=== PATIENT | female | born 1955 | race Hispanic/Latino ===

== ENCOUNTER 2017-01-04 13:48 | Emergency (ER) | payer MEDICARE ==
[2017-01-04 13:48] VITALS: BMI 23.8
[2017-01-04 15:07] VITALS: BP 131/89; PULSE 94; RESP 18; TEMP 97.5; O2SAT 96
--- NOTE | 2017-01-04 16:25 | ED PDOC ---
Arrival/HPI - General Chief Complaint: Lower Extremity Problem/Injury Time Seen by Provider: 01/04/17 15:01 Historian: Patient - History of Present Illness Narrative History of Present Illness (Text): 01/04/17 16:21 61yo female present with complaint of right lower leg/foot pain s/p trauma yesterday. States a sheet rock fell ontop of her leg, while peeling the sheet rock. Pain with weight bearing. Did not take any analgesic. Denies weakness, any other complaint. Past Medical History - Provider Review Nursing Documentation Reviewed: Yes - Infectious Disease Hx of Infectious Diseases: None - Tetanus Immunization Tetanus Immunization: Unknown - Past Medical History Past Medical History: No Previous - Cardiac Hx Cardiac Disorders: No Hx Pacemaker: No - Pulmonary Hx Respiratory Disorders: No - Neurological Hx Neurological Disorder: Yes Hx Vertigo: Yes Other/Comment: Hydrocephalus - HEENT Hx HEENT Disorder: No - Renal Hx Renal Disorder: No - Endocrine/Metabolic Hx Endocrine Disorders: No - Hematological/Oncological Hx Blood Transfusions: No Hx Blood Transfusion Reaction: No - Integumentary Hx Dermatological Disorder: No - Musculoskeletal/Rheumatological Hx Musculoskeletal Disorders: Yes (HERNIATED DISC) - Gastrointestinal Hx Gastrointestinal Disorders: No - Genitourinary/Gynecological Hx Genitourinary Disorders: No - Psychiatric Hx Anxiety: Yes Hx Emotional Abuse: No Hx Physical Abuse: No Hx Substance Use: No - Past Surgical History Past Surgical History: No Previous - Surgical History Hx Hysterectomy: Yes Other/Comment: JAw surgery - Anesthesia Hx Anesthesia: Yes Hx Anesthesia Reactions: Yes (NAUSEA) Hx Malignant Hyperthermia: No - Suicidal Assessment Feels Threatened In Home Enviroment: No Family/Social History - Physician Review Nursing Documentation Reviewed: Yes Family/Social History: Unknown Family HX Smoking Status: Never Smoked Hx Alcohol Use: No Hx Substance Use: No Hx Substance Use Treatment: No Allergies/Home Meds Allergies/Adverse Reactions: Allergies acetaminophen [From Percocet] Adverse Reaction (Intermediate, Verified 01/04/17 15:02) IRRITATES STOMACH/ VOMITING codeine Adverse Reaction (Intermediate, Verified 01/04/17 15:02) IRRITATES STOMACH/ VOMITING oxycodone HCl [From Percocet] Adverse Reaction (Intermediate, Verified 01/04/17 15:02) IRRITATES STOMACH/ VOMITING Home Medications: Home Meds Medication Instructions Recorded Confirmed Alprazolam [Xanax] 0.25 mg PO PRN PRN 08/15/12 05/15/17 Acetaminophen/Butalbital/Caf 1 tab PO Q6 PRN 09/08/16 01/04/17 [Fioricet] Review of Systems - Physician Review All systems were reviewed & negative as marked: Yes - Review of Systems Constitutional: Normal Eyes: Normal ENT: Normal Respiratory: Normal Cardiovascular: Normal Gastrointestinal: Normal Genitourinary Female: Normal Musculoskeletal: Arthralgias (right leg pain) Skin: Normal Neurological: Normal Endocrine: Normal Hemo/Lymphatic: Normal Psychiatric: Normal Physical Exam Vital Signs Reviewed: Yes Vital Signs Temp Pulse Resp BP Pulse Ox 01/04/17 15:00 97.5 F L 94 H 18 131/89 96 Temperature: Afebrile Blood Pressure: Normal Pulse: Regular Respiratory Rate: Normal Appearance: Positive for: Well-Appearing, Non-Toxic, Comfortable Pain Distress: None Mental Status: Positive for: Alert and Oriented X 3 - Systems Exam Head: Present: Atraumatic, Normocephalic Pupils: Present: PERRL Extroacular Muscles: Present: EOMI Conjunctiva: Present: Normal Mouth: Present: Moist Mucous Membranes Neck: Present: Normal Range of Motion Respiratory/Chest: Present: Clear to Auscultation, Good Air Exchange. No: Respiratory Distress, Accessory Muscle Use Cardiovascular: Present: Regular Rate and Rhythm, Normal S1, S2. No: Murmurs Abdomen: Present: Normal Bowel Sounds. No: Tenderness, Distention, Peritoneal Signs Back: Present: Normal Inspection Upper Extremity: Present: Normal Inspection. No: Cyanosis, Edema Lower Extremity: Present: CALF TENDERNESS, NORMAL PULSES, Normal ROM, Swelling ( Mild swelling of right lower leg), Neurovascularly Intact, Other (Superficial healing abrasion noted on mcpherson area). No: Edema, Erythema, Deformity, Temperature Abnormalties Neurological: Present: GCS=15, CN II-XII Intact, Speech Normal Skin: Present: Warm, Dry, Normal Color. No: Rashes Psychiatric: Present: Alert, Oriented x 3, Normal Insight, Normal Concentration Medical Decision Making ED Course and Treatment: 01/04/17 20:30 PEr US tech - Doppler was negative for DVT Right tib/fib/foot xray - No acute fracture PT was ambulatory. Result was DW the pt. He was DC home with analgesic. Referred to her PMD. Advised to FLAKITA leg. TRT ED for any new or worsening symptoms. - RAD Interpretation Radiology Orders: 01/04/17 15:01 FOOT RIGHT 3 VIEWS ROUTINE [RAD] Stat TIBIA FIBULA RIGHT [RAD] Stat 01/04/17 15:02 DUPLEX LOWER EXTRM VEIN RIGHT [US] Stat - Medication Orders Current Medication Orders: Discontinued Medications Tramadol HCl (Ultram) 50 mg PO STAT STA Stop: 01/04/17 15:03 Last Admin: 01/04/17 15:14 Dose: 50 mg Disposition/Present on Arrival - Present on Arrival Any Indicators Present on Arrival: No History of DVT/PE: No History of Uncontrolled Diabetes: No Urinary Catheter: No History of Decub. Ulcer: No History Surgical Site Infection Following: None - Disposition Have Diagnosis and Disposition been Completed?: Yes Diagnosis: Leg injury Disposition: HOME/ ROUTINE Disposition Time: 16:30 Patient Plan: Discharge Condition: STABLE Discharge Instructions (ExitCare): Leg Pain (ED) Additional Instructions: Follow up with your Doctor/orthopedist Return to ED for any new or worsening symptoms Prescriptions: Naproxen [Naprosyn] 500 mg PO BID #20 tab Referrals: Rohit Quiroga MD [Primary Care Provider] - Follow up with primary Jewell Walker MD [Staff Provider] - Follow up with primary
--- NOTE | 2017-01-04 20:05 | US ---
PROCEDURE: Right lower extremity venous US HISTORY: Leg pain and swelling. Evaluate for DVT. PHYSICIAN(S): Andrew Lee M.D. TECHNIQUE: Duplex sonography and color-flow Doppler with graded compression were used to evaluate the deep venous system of the right lower extremity. FINDINGS: The visualized deep venous system of the right lower extremity is sonographically normal and compressible. Normal waveforms and augmentation are seen. There is no sonographic evidence for deep venous thrombosis in the visualized segments of the right lower extremity. IMPRESSION: 1. No sonographic evidence for deep venous thrombosis in the visualized segments of the right lower extremity.
--- NOTE | 2017-01-05 08:50 | RAD ---
PROCEDURE: Radiographs of the right tibia and fibula. HISTORY: leg pain COMPARISON: None available. TECHNIQUE: Frontal and lateral views obtained. FINDINGS: BONES: No fracture or destructive lesion. JOINT SPACES: Unremarkable. OTHER FINDINGS: None. IMPRESSION: Unremarkable radiographs of the right tibia and fibula.
--- NOTE | 2017-01-05 08:53 | RAD ---
PROCEDURE: Right Foot Radiographs. HISTORY: foot pain s/p trauma COMPARISON: None. FINDINGS: BONES: No acute fracture. 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 JOINTS: Normal. SOFT TISSUES: Normal. OTHER FINDINGS: None. IMPRESSION: No acute fracture. Type 3 accessory navicular noted.
== END 2017-01-04 16:41 | disposition home or self-care (01) ==
LOC: ED 13:48
DX: S89.91XA Unspecified injury of right lower leg, initial encounter (principal); W20.8XXA Other cause of strike by thrown, projected or falling object, initial encounter

== ENCOUNTER 2017-01-05 11:38 | Emergency (ER) | payer MEDICARE ==
[2017-01-05 11:38] VITALS: BMI 23.8
[2017-01-05 12:03] VITALS: BP 109/71; PULSE 83; RESP 18; TEMP 98; O2SAT 97
--- NOTE | 2017-01-05 12:09 | ED PDOC ---
Arrival/HPI - General Historian: Patient - General Chief Complaint: Lower Extremity Problem/Injury Time Seen by Provider: 01/05/17 12:06 - History of Present Illness Narrative History of Present Illness (Text): 01/05/17 17:24 7o yo female with right lower leg pain in ED for pain medication. She was seen here yesterday for the leg pain and xray/US result was negative. She was DC home with Naprosyn. States the medication gave her "stomach upset". Came back to ED for a different prescription. Denies any new symptoms. (Luke Purcell A) Past Medical History - Provider Review Nursing Documentation Reviewed: Yes - Infectious Disease Hx of Infectious Diseases: None - Tetanus Immunization Tetanus Immunization: Unknown - Past Medical History Past Medical History: No Previous - Cardiac Hx Cardiac Disorders: No Hx Pacemaker: No - Pulmonary Hx Respiratory Disorders: No - Neurological Hx Neurological Disorder: Yes Hx Vertigo: Yes Other/Comment: Hydrocephalus - HEENT Hx HEENT Disorder: No - Renal Hx Renal Disorder: No - Endocrine/Metabolic Hx Endocrine Disorders: No - Hematological/Oncological Hx Blood Transfusions: No Hx Blood Transfusion Reaction: No - Integumentary Hx Dermatological Disorder: No - Musculoskeletal/Rheumatological Hx Musculoskeletal Disorders: Yes (HERNIATED DISC) - Gastrointestinal Hx Gastrointestinal Disorders: No - Genitourinary/Gynecological Hx Genitourinary Disorders: No - Psychiatric Hx Anxiety: Yes Hx Emotional Abuse: No Hx Physical Abuse: No Hx Substance Use: No - Past Surgical History Past Surgical History: No Previous - Surgical History Hx Hysterectomy: Yes Other/Comment: JAw surgery - Anesthesia Hx Anesthesia: Yes Hx Anesthesia Reactions: Yes (NAUSEA) Hx Malignant Hyperthermia: No - Suicidal Assessment Feels Threatened In Home Enviroment: No Family/Social History - Physician Review Nursing Documentation Reviewed: Yes Family/Social History: Unknown Family HX Smoking Status: Never Smoked Hx Alcohol Use: No Hx Substance Use: No Hx Substance Use Treatment: No Allergies/Home Meds Allergies/Adverse Reactions: Allergies acetaminophen [From Percocet] Adverse Reaction (Intermediate, Verified 01/05/17 12:03) IRRITATES STOMACH/ VOMITING codeine Adverse Reaction (Intermediate, Verified 01/05/17 12:03) IRRITATES STOMACH/ VOMITING oxycodone HCl [From Percocet] Adverse Reaction (Intermediate, Verified 01/05/17 12:03) IRRITATES STOMACH/ VOMITING Home Medications: Home Meds Medication Instructions Recorded Confirmed Alprazolam [Xanax] 0.25 mg PO PRN PRN 04/06/12 01/05/17 Acetaminophen/Butalbital/Caf 1 tab PO Q6 PRN 09/08/16 01/05/17 [Fioricet] Review of Systems - Physician Review All systems were reviewed & negative as marked: Yes - Review of Systems Constitutional: Normal Eyes: Normal ENT: Normal Respiratory: Normal Cardiovascular: Normal Gastrointestinal: Normal Genitourinary Female: Normal Musculoskeletal: Arthralgias (leg pain) Skin: Normal Neurological: Normal Endocrine: Normal Hemo/Lymphatic: Normal Psychiatric: Normal Physical Exam Vital Signs Reviewed: Yes Temperature: Afebrile Blood Pressure: Normal Pulse: Regular Respiratory Rate: Normal Appearance: Positive for: Well-Appearing, Non-Toxic, Comfortable Pain Distress: None Mental Status: Positive for: Alert and Oriented X 3 - Systems Exam Head: Present: Atraumatic, Normocephalic Pupils: Present: PERRL Extroacular Muscles: Present: EOMI Conjunctiva: Present: Normal Mouth: Present: Moist Mucous Membranes Neck: Present: Normal Range of Motion Respiratory/Chest: Present: Clear to Auscultation, Good Air Exchange. No: Respiratory Distress, Accessory Muscle Use Cardiovascular: Present: Regular Rate and Rhythm, Normal S1, S2. No: Murmurs Abdomen: Present: Normal Bowel Sounds. No: Tenderness, Distention, Peritoneal Signs Back: Present: Normal Inspection Upper Extremity: Present: Normal Inspection. No: Cyanosis, Edema Lower Extremity: Present: Normal Inspection. No: Edema Neurological: Present: GCS=15, CN II-XII Intact, Speech Normal Skin: Present: Warm, Dry, Normal Color. No: Rashes Psychiatric: Present: Alert, Oriented x 3, Normal Insight, Normal Concentration Vital Signs Temp Pulse Resp BP Pulse Ox 01/05/17 12:00 98 F 83 18 109/71 97 Medical Decision Making ED Course and Treatment: I was available for consultation during PA evaluation. The chart was reviewed by me, and I agree with disposition. The documented history was done by the physician debarker operator. The documented physical exam was done by the physician debarker operator. The documented procedures were done by the physician debarker operator. (Jethro Palm) 01/05/17 17:27 Pt states she tolerates Ibuprofen. Given rx for Ibuprofen. (Luke Purcell A) Disposition/Present on Arrival - Present on Arrival Any Indicators Present on Arrival: No History of DVT/PE: No History of Uncontrolled Diabetes: No Urinary Catheter: No History of Decub. Ulcer: No History Surgical Site Infection Following: None - Disposition Have Diagnosis and Disposition been Completed?: Yes Disposition Time: 12:20 Patient Plan: Discharge - Disposition Diagnosis: Leg pain Disposition: HOME/ ROUTINE Condition: STABLE Discharge Instructions (ExitCare): Leg Pain (ED) Additional Instructions: Follow up with your doctor Return to ED for any new or worsening symptoms Prescriptions: Ibuprofen [Motrin Tab] 600 mg PO Q6 #20 tab Referrals: [facility] [place] - Follow up with primary
== END 2017-01-05 12:34 | disposition home or self-care (01) ==
LOC: ED 11:38
DX: M79.661 Pain in right lower leg (principal)

== ENCOUNTER 2017-01-08 12:22 | Emergency (ER) | payer MEDICARE ==
[2017-01-08 12:22] VITALS: BMI 23.8
[2017-01-08 12:45] VITALS: BP 143/81; PULSE 94; RESP 16; TEMP 98.1; O2SAT 95
--- NOTE | 2017-01-08 12:54 | ED PDOC ---
Arrival/HPI - General Chief Complaint: Dizziness/Lightheaded Time Seen by Provider: 01/08/17 12:30 Historian: Patient - History of Present Illness Narrative History of Present Illness (Text): 01/08/17 12:50 Patient is a 61 year old female whose past medical history includes vertigo, presents to the emergency department with dizziness since this morning. Patient states she took 1 Meclizine (unknown dose) at 09:00 this morning. She states she then went shopping and symptoms became worse when she got to the store. Denies headache, chest pain, ear pain, shortness of breath, or palpations. Past Medical History - Provider Review Nursing Documentation Reviewed: Yes - Infectious Disease Hx of Infectious Diseases: None - Tetanus Immunization Tetanus Immunization: Unknown - Past Medical History Past Medical History: No Previous - Cardiac Hx Cardiac Disorders: No Hx Pacemaker: No - Pulmonary Hx Respiratory Disorders: No - Neurological Hx Neurological Disorder: Yes Hx Vertigo: Yes Other/Comment: Hydrocephalus - HEENT Hx HEENT Disorder: No - Renal Hx Renal Disorder: No - Endocrine/Metabolic Hx Endocrine Disorders: No - Hematological/Oncological Hx Blood Transfusions: No Hx Blood Transfusion Reaction: No - Integumentary Hx Dermatological Disorder: No - Musculoskeletal/Rheumatological Hx Musculoskeletal Disorders: Yes (HERNIATED DISC) - Gastrointestinal Hx Gastrointestinal Disorders: No - Genitourinary/Gynecological Hx Genitourinary Disorders: No - Psychiatric Hx Anxiety: Yes Hx Emotional Abuse: No Hx Physical Abuse: No Hx Substance Use: No - Past Surgical History Past Surgical History: No Previous - Surgical History Hx Hysterectomy: Yes Other/Comment: JAw surgery - Anesthesia Hx Anesthesia: Yes Hx Anesthesia Reactions: Yes (NAUSEA) Hx Malignant Hyperthermia: No - Suicidal Assessment Feels Threatened In Home Enviroment: No Family/Social History - Physician Review Nursing Documentation Reviewed: Yes Family/Social History: Unknown Family HX Smoking Status: Never Smoked Hx Alcohol Use: No Hx Substance Use: No Hx Substance Use Treatment: No Allergies/Home Meds Allergies/Adverse Reactions: Allergies acetaminophen [From Percocet] Adverse Reaction (Intermediate, Verified 01/12/17 16:14) IRRITATES STOMACH/ VOMITING codeine Adverse Reaction (Intermediate, Verified 01/12/17 16:14) IRRITATES STOMACH/ VOMITING oxycodone HCl [From Percocet] Adverse Reaction (Intermediate, Verified 01/12/17 16:14) IRRITATES STOMACH/ VOMITING Home Medications: Home Meds Medication Instructions Recorded Confirmed Alprazolam [Xanax] 0.25 mg PO PRN PRN 04/06/12 01/08/17 Acetaminophen/Butalbital/Caf 1 tab PO BID 01/08/17 01/12/17 [Fioricet] Review of Systems - Review of Systems Constitutional: absent: Fatigue, Fevers Eyes: absent: Vision Changes ENT: absent: Hearing Changes Respiratory: absent: SOB Cardiovascular: Edema. absent: Chest Pain, Palpitations, RODRIGUES Gastrointestinal: absent: Abdominal Pain, Nausea, Vomiting Genitourinary Female: absent: Dysuria, Frequency Musculoskeletal: absent: Back Pain Skin: absent: Rash Neurological: Dizziness. absent: Headache Endocrine: absent: Diaphoresis Psychiatric: absent: Depression Physical Exam - Physical Exam Narrative Physical Exam (Text): Head: Atraumatic. Normocephalic. Eyes: PERRL. EOMI. Conjunctivae are not pale. ENT: Mucous membranes are moist and intact. Tympanic membranes clear bilaterally. Oropharynx is clear and symmetric. Neck: Supple. Full ROM. No JVD. No lymphadenopathy. Cardiovascular: Regular rate. Regular rhythm. Systolic murmur. No rubs, or gallops. Distal pulses are 2+ and symmetric. Pulmonary/Chest: No evidence of respiratory distress. Clear to auscultation bilaterally. No wheezing, rales or rhonchi. Abdominal: Soft and non-distended. There is no tenderness. No rebound, guarding, or rigidity. No organomegaly. Good bowel sounds. Back: No CVA tenderness. Extremities: Healing abrasion on right mcpherson with no pus, blood, or drainage. Mild edema to right leg when compared to left. No cyanosis. No clubbing. Full range of motion in all extremities. No calf tenderness. Skin: Skin is warm and dry. No petechiae. No purpura. Neurological: Alert, awake, and oriented to person, place, time, and situation. Normal speech. No facial droop. No pronator drift. Sensory and motor intact. Negative dos santos pike maneuver. No pathologic nystagmus. Psychiatric: Good eye contact. Appears mildly anxious. Vital Signs Reviewed: Yes Vital Signs Temp Pulse Resp BP Pulse Ox 01/08/17 12:40 98.1 F 94 H 16 143/81 95 Temperature: Afebrile Blood Pressure: Normal Pulse: Regular Respiratory Rate: Normal Appearance: Positive for: Well-Appearing, Non-Toxic, Comfortable Pain Distress: Mild Mental Status: Positive for: Alert and Oriented X 3 Finger Stick Blood Glucose: 83 Medical Decision Making ED Course and Treatment: Differential Diagnosis included but are not limited to: Vertigo Plan: Patient with prior history of vertigo. Due to positional nature of symptoms, suggestive of vertigo. Will give Meclizine. Prior Visits: Notes and results from previous visits were reviewed. Patient last seen in the ED on 01/05/17 for right leg pain and discharged home. PROCEDURE: MRI BRAIN WITH AND WITHOUT CONTRAST (08/18/16) It Recruiter : Jeffy Mar MD Report Date : 08/18/2016 13:22:25 IMPRESSION: Unremarkable pre and post contrast enhanced MRI of the brain. Progress Notes: 01/08/17 14:15 On reassessment, symptoms completely resolved after Meclizine. Patient is not orthostatic. Denies chest pain or shortness of breath. She reports current episode is similar to prior episodes. As she is asymptomatic and neurologically intact, she will be discharged with instructions to continue Meclizine as needed. 01/08/17 14:37 Ddimer elevation discussed with patient in laymen's terms. She denies any chest pain or shortness of breath. She does have right sided leg swelling but states this is improved since previous visit. Prior ultrasound was reviewed which was negative for DVT. I have recommended CT chest with iv contrast for evaluation of PE. Patient states that she has no chest discomfort or shortness of breath currently. She does not wish to have Chest ct after indications and risks reviewed with her. She again states she has no chest pain or shortness of breath or palpitations. Non smoker. No prolonged immobization. No prior history of DVT or PE. Given lack of symptoms, patient understands risks but is asymptomatic and will be discharged home, states understand risk. - Lab Interpretations Lab Results: 01/08/17 13:30 01/08/17 13:30 Lab Results 01/08/17 13:30: Sodium 143, Potassium 3.8, Chloride 102, Carbon Dioxide 27, Anion Gap 18, BUN 10, Creatinine 0.7, Est GFR ( Amer) > 60, Est GFR (Non- Af Amer) > 60, Random Glucose 82, Calcium 9.7, Total Bilirubin 1.3, AST 20, ALT 21, Alkaline Phosphatase 121, Lactate Dehydrogenase 417, Total Creatine Kinase 49, Troponin I < 0.01, Total Protein 8.3, Albumin 4.7, Globulin 3.6, Albumin/ Globulin Ratio 1.3 01/08/17 13:30: PT 10.5, INR 0.97, APTT 28.3, D-Dimer, Quantitative 0.78 H 01/08/17 13:30: WBC 5.6, RBC 4.33, Hgb 12.9, Hct 37.5, MCV 86.6, MCH 29.8, MCHC 34.4, RDW 12.4, Plt Count 215, MPV 9.5, Gran % 72.1 H, Lymph % (Auto) 16.6 L, Payette % (Auto) 7.3 H, Eos % (Auto) 3.6, Baso % (Auto) 0.4, Gran # 4.05, Lymph # 0.9 L, Payette # 0.4, Eos # 0.2, Baso # 0.02 01/08/17 12:43: POC Glucose (mg/dL) 83 - RAD Interpretation Radiology Orders: 01/08/17 12:50 CHEST PORTABLE [RAD] Stat - Medication Orders Current Medication Orders: Discontinued Medications Meclizine HCl (Antivert) 25 mg PO ONCE ONE Stop: 01/08/17 13:03 Last Admin: 01/08/17 13:23 Dose: 25 mg - Scribe Statement The provider has reviewed the documentation as recorded by the Dominique Jacques Provider Scribe Attestation: All medical record entries made by the Dominique were at my direction and personally dictated by me. I have reviewed the chart and agree that the record accurately reflects my personal performance of the history, physical exam, medical decision making, and the department course for this patient. I have also personally directed, reviewed, and agree with the discharge instructions and disposition. Disposition/Present on Arrival - Present on Arrival Any Indicators Present on Arrival: No History of DVT/PE: No History of Uncontrolled Diabetes: No Urinary Catheter: No History of Decub. Ulcer: No History Surgical Site Infection Following: None - Disposition Have Diagnosis and Disposition been Completed?: Yes Diagnosis: Vertigo Disposition: HOME/ ROUTINE Disposition Time: 14:00 Patient Plan: Discharge Condition: GOOD Discharge Instructions (ExitCare): Vertigo (ED) Additional Instructions: For any headaches, any chest pain, any shortness of breath, any abdominal pain, any palpitations, any persistent or worsening of any symptoms, get rechecked. Follow-up with your physician in 1-2 day. Follow-up with your neurologist as directed. Take meclizine as directed. Referrals: Rohit Quiroga MD [Primary Care Provider] - Follow up with primary
--- NOTE | 2017-01-08 13:12 | RAD ---
HISTORY: dizzy COMPARISON: No prior. FINDINGS: LUNGS: No active pulmonary disease. PLEURA: No significant pleural effusion identified, no pneumothorax apparent. CARDIOVASCULAR: Normal. OSSEOUS STRUCTURES: No significant abnormalities. VISUALIZED UPPER ABDOMEN: Normal. OTHER FINDINGS: None. IMPRESSION: No active disease.
[2017-01-08 13:43] LABS: ADD MANUAL DIFF? NO
[2017-01-08 13:57] LABS: ALB/GLOB RATIO 1.3 (1.1-1.8); ALKALINE PHOSPHATASE 121 U/L (38-133); ALT/SGPT 21 U/L (7-56); AST/SGOT 20 U/L (15-39); BASO # 0.02 K/mm3 (0.0-2.0); BASO % 0.4 % (0.0-3.0); BILIRUBIN,TOTAL 1.3 mg/dL (0.2-1.3); BLOOD UREA NITROGEN 10 mg/dL (7-21); CALCIUM 9.7 mg/dL (8.4-10.5); CARBON DIOXIDE 27 mmol/L (21-33); CHLORIDE 102 mmol/L (98-107); EOS # 0.2 (0.0-0.7); EOS % 3.6 % (1.5-5.0); GFR AFRICAN-AMERICAN > 60; GLUCOSE,RANDOM 82 mg/dL (70-110); GRAN # 4.05 (1.4-6.5); GRAN % 72.1 % (50.0-68.0); HEMATOCRIT 37.5 % (36.0-48.0); LYMPH # 0.9 (1.2-3.4); LYMPH % 16.6 % (22.0-35.0); MEAN CELL VOLUME 86.6 fL (80.0-105.0); MEAN CORPUSCULAR HEMOGLOBIN 29.8 pg (25.0-35.0); MEAN CORPUSCULAR HGB CONC 34.4 g/dl (31.0-37.0); MEAN PLATELET VOLUME 9.5 fl (7.0-11.0); MONO # 0.4 (0.1-0.6); MONO % 7.3 % (1.0-6.0); PLATELET COUNT 215 10^3/uL (120.0-450.0); POTASSIUM 3.8 mmol/L (3.6-5.0); RED CELL DISTRIBUTION WIDTH 12.4 % (11.5-14.5); SODIUM 143 mmol/L (132-148); TOTAL PROTEIN 8.3 g/dL (5.8-8.3); WHITE BLOOD COUNT 5.6 10^3/ul (4.5-11.0)
[2017-01-08 14:09] LABS: TROPONIN I < 0.01 ng/mL
[2017-01-08 14:20] LABS: INR 0.97 (0.93-1.08); PARTIAL THROMBOPLASTIN TIME 28.3 Seconds (23.7-30.8)
[2017-01-08 14:23] LABS: D DIMER 0.78 mg/L FEU (0-0.50)
--- NOTE | 2017-01-08 21:58 | CARD ---
APPROVED REPORT EKG Measurement Heart [id number] <Conclusion> Normal sinus rhythm Possible Left atrial enlargement Borderline ECG
== END 2017-01-08 14:40 | disposition home or self-care (01) ==
LOC: ED 12:22
DX: R42 Dizziness and giddiness (principal)

== ENCOUNTER 2017-01-12 16:11 | Emergency (ER) | payer MEDICARE ==
[2017-01-12 16:12] VITALS: BMI 23.8
[2017-01-12 16:24] VITALS: TEMP 97.7
--- NOTE | 2017-01-12 17:21 | ED PDOC ---
Arrival/HPI - General Chief Complaint: Dizziness/Lightheaded Time Seen by Provider: 01/12/17 16:26 Historian: Patient - History of Present Illness Narrative History of Present Illness (Text): 01/12/17 17:10 Carol Samuel is a 61 year old female, whose past medical history includes vertigo and migraines, who presents to the emergency department complaining of dizziness for 4 days. Patient describes her dizziness to be a spinning sensation with no focal weakness. Patient presented to PMD today, who ordered a CT scan in an outpatient facility. However due to an insurance required pre- authorization, patient was not able to get scan prompting her to come to emergency department instead. At present, Patient states that there is no change in dizziness and endorses that she continues to take Meclizine once a day , daily. Patient denies any chest pain, vomiting, shortness of breath, generalized body pain, or any other complaint at this time. PMD: Dr. Quiroga 0 Time/Duration: < week Symptom Onset: Gradual Symptom Course: Unchanged Severity Level: Mild Activities at Onset: Light Context: Home Past Medical History - Provider Review Nursing Documentation Reviewed: Yes - Infectious Disease Hx of Infectious Diseases: None - Tetanus Immunization Tetanus Immunization: Unknown - Reproductive Menopause: Yes - Past Medical History Past Medical History: No Previous - Cardiac Hx Cardiac Disorders: No Hx Pacemaker: No - Pulmonary Hx Respiratory Disorders: No - Neurological Hx Neurological Disorder: Yes Hx Dizziness: Yes Hx Vertigo: Yes Other/Comment: Hydrocephalus - HEENT Hx HEENT Disorder: No - Renal Hx Renal Disorder: No - Endocrine/Metabolic Hx Endocrine Disorders: No - Hematological/Oncological Hx Blood Transfusions: No Hx Blood Transfusion Reaction: No - Integumentary Hx Dermatological Disorder: No - Musculoskeletal/Rheumatological Hx Musculoskeletal Disorders: Yes (HERNIATED DISC) - Gastrointestinal Hx Gastrointestinal Disorders: No - Genitourinary/Gynecological Hx Genitourinary Disorders: No - Psychiatric Hx Anxiety: Yes Hx Emotional Abuse: No Hx Physical Abuse: No Hx Substance Use: No - Past Surgical History Past Surgical History: No Previous - Surgical History Hx Hysterectomy: Yes (2003) Other/Comment: Jaw surgery - Anesthesia Hx Anesthesia: Yes Hx Anesthesia Reactions: Yes (NAUSEA) Hx Malignant Hyperthermia: No - Suicidal Assessment Feels Threatened In Home Enviroment: No Family/Social History - Physician Review Nursing Documentation Reviewed: Yes Family/Social History: No Known Family HX Smoking Status: Never Smoked Hx Alcohol Use: No Hx Substance Use: No Hx Substance Use Treatment: No Allergies/Home Meds Allergies/Adverse Reactions: Allergies acetaminophen [From Percocet] Adverse Reaction (Intermediate, Verified 01/12/17 16:14) IRRITATES STOMACH/ VOMITING codeine Adverse Reaction (Intermediate, Verified 01/12/17 16:14) IRRITATES STOMACH/ VOMITING oxycodone HCl [From Percocet] Adverse Reaction (Intermediate, Verified 01/12/17 16:14) IRRITATES STOMACH/ VOMITING Home Medications: Home Meds Medication Instructions Recorded Confirmed Alprazolam [Xanax] 0.25 mg PO PRN PRN 04/06/12 01/08/17 Acetaminophen/Butalbital/Caf 1 tab PO BID 01/08/17 01/12/17 [Fioricet] Review of Systems - Review of Systems Constitutional: absent: Fevers, Night Sweats Eyes: absent: Vision Changes ENT: absent: Hearing Changes Respiratory: absent: SOB, Cough Cardiovascular: absent: Chest Pain Gastrointestinal: absent: Abdominal Pain, Nausea, Vomiting, Appetite Changes Genitourinary Female: absent: Urine Output Changes Musculoskeletal: absent: Arthralgias, Back Pain, Neck Pain Skin: absent: Rash, Pruritis Neurological: Dizziness Endocrine: absent: Polyuria Hemo/Lymphatic: absent: Easy Bleeding Psychiatric: absent: Depression Physical Exam Vital Signs Reviewed: Yes Vital Signs Temp Pulse Resp BP Pulse Ox 01/12/17 18:42 72 16 122/75 100 01/12/17 16:22 97.7 F 85 19 108/72 97 Temperature: Afebrile Blood Pressure: Normal Pulse: Regular Respiratory Rate: Normal Appearance: Positive for: Well-Appearing, Non-Toxic, Comfortable Pain Distress: None Mental Status: Positive for: Alert and Oriented X 3 - Systems Exam Head: Present: Atraumatic, Normocephalic Pupils: Present: PERRL Conjunctiva: Present: Normal Mouth: Present: Moist Mucous Membranes Pharnyx: Present: Normal. No: ERYTHEMA, EXUDATE Neck: Present: Normal Range of Motion Respiratory/Chest: Present: Clear to Auscultation, Good Air Exchange. No: Respiratory Distress, Accessory Muscle Use Cardiovascular: Present: Regular Rate and Rhythm, Normal S1, S2. No: Murmurs Abdomen: Present: Normal Bowel Sounds. No: Tenderness, Distention, Peritoneal Signs Back: Present: Normal Inspection Upper Extremity: Present: Normal Inspection. No: Cyanosis, Edema Lower Extremity: Present: Normal Inspection, Other (wound on right mcpherson that appears to be a non healing abrasion (started on antibiotics by PMD today); no erythema, no pus). No: Edema, Erythema Neurological: Present: GCS=15, CN II-XII Intact, Speech Normal, Motor Func Grossly Intact, Normal Cerebellar Funct Skin: Present: Warm, Dry, Normal Color. No: Rashes Psychiatric: Present: Alert, Oriented x 3, Normal Insight, Normal Concentration Medical Decision Making ED Course and Treatment: 01/12/17 17:10 Impression: 61 year old female complaining of dizziness for 4 days. Differential Diagnosis include but are not limited to: Vertigo Plan: -- Head CT w/o contrast -- Reassess and disposition Prior Visits: Notes and results from previous visits were reviewed. Patient last seen in ED on 01/08/2017 for dizziness since that morning. Patient was discharged home. Progress Notes: 01/12/17 19:[address]: Creator : Ansley Shabazz MD FINDINGS: HEMORRHAGE:No intracranial hemorrhage. BRAIN: No mass effect or edema. The reid-white matter differentiation appears intact. Please note that MRI with diffusion imaging is more sensitive in the detection of acute ischemic event. VENTRICLES:Unremarkable. No hydrocephalus. CALVARIUM:Unremarkable. PARANASAL SINUSES:Unremarkable as visualized. No significant inflammatory changes. MASTOID AIR CELLS:Unremarkable as visualized. No inflammatory changes. OTHER FINDINGS:None. IMPRESSION: No acute intracranial pathology identified. 01/12/17 19:45 Patient with longer-standing vertigo, worse past 4 days with unremarkable neuro exam; saw pmd this am, ordered CT brain and unable to obtain today due to insurance. Blood work done recently is unremarkable. Brain CT today is unremarkable. Spoke with Dr. Quiroga's nurse, Tiffanie, who said to have the patient call her tomorrow to see if she can get her a sooner appointment with Dr. Carpenter. [place] for d/c and will have her use the meclizine BID instead of QD. - RAD Interpretation Radiology Orders: 01/12/17 17:16 Brain [HEAD W/O CONTRAST] [CT] Stat - Scribe Statement The provider has reviewed the documentation as recorded by the Dominique Briggs Provider Scribe Attestation: All medical record entries made by the Scribe were at my direction and personally dictated by me. I have reviewed the chart and agree that the record accurately reflects my personal performance of the history, physical exam, medical decision making, and the department course for this patient. I have also personally directed, reviewed, and agree with the discharge instructions and disposition. Disposition/Present on Arrival - Present on Arrival Any Indicators Present on Arrival: No History of DVT/PE: No History of Uncontrolled Diabetes: No Urinary Catheter: No History of Decub. Ulcer: No History Surgical Site Infection Following: None - Disposition Have Diagnosis and Disposition been Completed?: Yes Diagnosis: Dizziness Disposition: HOME/ ROUTINE Disposition Time: 19:50 Patient Plan: Discharge Condition: GOOD Discharge Instructions (ExitCare): Vertigo (ED) Additional Instructions: Drink plenty of fluids. Take the meclizine twice a day as needed for dizziness. Call Tiffanie from Dr. Quiroga's office tomorrow to arrange for sooner appointment with Dr. Carpenter. Return to the emergency department if any new concerning symptoms. Referrals: Rohit Quiroga MD [Primary Care Provider] - Follow up with primary
[2017-01-12 18:43] VITALS: RESP 16; O2SAT 100
--- NOTE | 2017-01-12 19:03 | CT ---
PROCEDURE: CT HEAD WITHOUT CONTRAST. HISTORY: dizziness COMPARISON: Noncontrast head CT performed 09/28/14 TECHNIQUE: Axial computed tomography images were obtained through the head/brain without intravenous contrast. Radiation dose: Total exam DLP = 822.62 mGy-cm. This CT exam was performed using one or more of the following dose reduction techniques: Automated exposure control, adjustment of the mA and/or kV according to patient size, and/or use of iterative reconstruction technique. FINDINGS: HEMORRHAGE: No intracranial hemorrhage. BRAIN: No mass effect or edema. The reid-white matter differentiation appears intact. Please note that MRI with diffusion imaging is more sensitive in the detection of acute ischemic event. VENTRICLES: Unremarkable. No hydrocephalus. CALVARIUM: Unremarkable. PARANASAL SINUSES: Unremarkable as visualized. No significant inflammatory changes. MASTOID AIR CELLS: Unremarkable as visualized. No inflammatory changes. OTHER FINDINGS: None. IMPRESSION: No acute intracranial pathology identified.
[2017-01-12 23:42] VITALS: BP 124/80; PULSE 70
== END 2017-01-12 19:56 | disposition home or self-care (01) ==
LOC: ED 16:11
DX: R42 Dizziness and giddiness (principal)

== ENCOUNTER 2017-01-25 13:05 | Emergency (ER) | payer MEDICARE ==
[2017-01-25 13:45] VITALS: RESP 18; TEMP 98
[2017-01-25 13:47] VITALS: BMI 20.2
--- NOTE | 2017-01-25 14:08 | ED PDOC ---
Arrival/HPI - General Time Seen by Provider: 01/25/17 13:54 Historian: Patient - History of Present Illness Narrative History of Present Illness (Text): 01/25/17 14:05 A 61 year old female, whose past medical history includes vertigo, presents to the emergency department complaining of intermittent dizziness since this morning. Patient reports symptoms are identical to previous vertigo. She states she was unable to refill her meclizine so she decided to come to the emergency department. Patient denies any fever, chills, nausea, vomiting or any other complaints at this time. PMD: Dr. Quiroga Time/Duration: 4-6 hours Symptom Onset: Sudden Symptom Course: Intermittent Quality: Other Activities at Onset: Rest Context: Home Past Medical History - Provider Review Nursing Documentation Reviewed: Yes - Infectious Disease Hx of Infectious Diseases: None - Tetanus Immunization Tetanus Immunization: Unknown - Past Medical History Past Medical History: No Previous - Cardiac Hx Cardiac Disorders: No Hx Pacemaker: No - Pulmonary Hx Respiratory Disorders: No - Neurological Hx Neurological Disorder: Yes Hx Dizziness: Yes Hx Vertigo: Yes Other/Comment: Hydrocephalus - HEENT Hx HEENT Disorder: No - Renal Hx Renal Disorder: No - Endocrine/Metabolic Hx Endocrine Disorders: No - Hematological/Oncological Hx Blood Transfusions: No Hx Blood Transfusion Reaction: No - Integumentary Hx Dermatological Disorder: No - Musculoskeletal/Rheumatological Hx Musculoskeletal Disorders: Yes (HERNIATED DISC) - Gastrointestinal Hx Gastrointestinal Disorders: No - Genitourinary/Gynecological Hx Genitourinary Disorders: No - Psychiatric Hx Anxiety: Yes Hx Emotional Abuse: No Hx Physical Abuse: No Hx Substance Use: No - Past Surgical History Past Surgical History: No Previous - Surgical History Hx Hysterectomy: Yes (2003) Other/Comment: Jaw surgery - Anesthesia Hx Anesthesia: Yes Hx Anesthesia Reactions: Yes (NAUSEA) Hx Malignant Hyperthermia: No - Suicidal Assessment Feels Threatened In Home Enviroment: No Family/Social History - Physician Review Nursing Documentation Reviewed: Yes Family/Social History: Unknown Family HX Smoking Status: Never Smoked Hx Alcohol Use: No Hx Substance Use: No Hx Substance Use Treatment: No Allergies/Home Meds Allergies/Adverse Reactions: Allergies acetaminophen [From Percocet] Adverse Reaction (Intermediate, Verified 01/12/17 16:14) IRRITATES STOMACH/ VOMITING codeine Adverse Reaction (Intermediate, Verified 01/12/17 16:14) IRRITATES STOMACH/ VOMITING oxycodone HCl [From Percocet] Adverse Reaction (Intermediate, Verified 01/12/17 16:14) IRRITATES STOMACH/ VOMITING Home Medications: Home Meds Medication Instructions Recorded Confirmed Alprazolam [Xanax] 0.25 mg PO PRN PRN 04/06/12 01/25/17 Acetaminophen/Butalbital/Caf 1 tab PO BID 01/08/17 01/25/17 [Fioricet] Physical Exam - Physical Exam Narrative Physical Exam (Text): - Review of Systems Constitutional: Normal. absent: Fatigue, Weight Change, Fevers Eyes: Normal ENT: Normal Respiratory: Normal absent: SOB, Cough, Sputum Cardiovascular: Normal absent: Chest pain, Palpitations, Syncope Gastrointestinal: Normal absent: Abdominal pain, Diarrhea, Nausea, Vomiting Genitourinary: Normal. absent: Dysuria, Frequency, Hematuria Musculoskeletal: Normal. absent: Arthralgias, Back Pain, Neck Pain Skin: Normal Neurological: Dizziness. absent: Focal Weakness Endocrine: Normal Hemo/Lymphatic: Normal Psychiatric: Normal - Physical exam Patient appears age appropriate, speaking full sentences without difficulty - Systems Exam Head: Present: Atraumatic, Normocephalic Pupils: Present: PERRL Extraocular Muscles: Present: EOMI Conjunctiva: Present: Normal Mouth: Present: Moist Mucous Membranes Neck: Present: Normal Range of Motion. No: MIDLINE TENDERNESS, Paraspinal Tenderness Respiratory/Chest: Present: Clear to Auscultation, Good Air Exchange. No: Respiratory Distress, Accessory Muscle Use, Tachypneic Cardiovascular: Present: Regular Rate and Rhythm, Normal S1, S2, Peripheral Pulses Present. No: Murmurs Abdomen: Present: Normal Bowel Sounds, No: Tenderness, Peritoneal Signs, Rebound, Guarding, Distention Back: Present: Normal Inspection. No: Midline Tenderness, Paraspinal Tenderness Upper Extremity: Present: Normal Inspection. No: Cyanosis, Edema Lower Extremity: Present: Normal Inspection. No: Edema Neurological: Present: GCS=15, Speech Normal, cranial nerves II through XII fully intact with no cerebellar abnormality, neuro-sensory fully intact. No focal neurological deficits. HINTS negative. Skin: Present: Warm, Dry, Normal Color. No: Rashes Lymphatic: Present: OX3, NI, NC Psychiatric: Present: Alert, Oriented x 3, Normal Insight, Normal Concentration Vital Signs Reviewed: Yes Vital Signs Temp Pulse Resp BP Pulse Ox 01/25/17 13:44 98 F 78 18 139/82 100 Temperature: Afebrile Blood Pressure: Normal Pulse: Regular Respiratory Rate: Normal Appearance: Positive for: Well-Appearing, Non-Toxic, Comfortable Pain Distress: None Mental Status: Positive for: Alert and Oriented X 3 Finger Stick Blood Glucose: 89 Medical Decision Making ED Course and Treatment: 01/25/17 14:05 Impression: A 61 year old female with dizziness. Patient states this feels identical to her previous vertigo symptoms, which she was unable to fill her meclizine. Patient has no focal neurological deficits on examination. Hints exam negative. EKG Differential Diagnosis include but are not limited to: Vertigo Plan: -- Meclizine -- Reassess and disposition Prior Visits: Notes and results from previous visits were reviewed. The patient last presented to the emergency department on 01/08/17 for evaluation of dizziness. Patient had a normal MRI of the brain on 08/18/16. Progress Notes: 01/25/17 14:48 EKG interpreted by ER physician. Normal sinus. No ST-segment elevations. Normal intervals. 01/25/17 16:40 On reevaluation, patient states that she feels much better and would like to be discharged home. Patient is ambulating in the emergency department with steady gait, no focal neurological deficits on reexamination. Patient ate a lunch box without any difficulty. Patient states that she has a prescription for meclizine which she will fill when she leaves the hospital. Patient states that she feels comfortable being discharged home with outpatient follow-up. Pt states she understands to return to the ER right away for new or worsening symptoms or for inability to f/u with PMD or specialist as instructed. Patient states that she fully agrees with and understands discharge instructions. States that she agrees with the plan and disposition. Verbalized and repeated discharge instructions and plan. I have given the patient opportunity to ask any additional questions. - Lab Interpretations Lab Results: Lab Results 01/25/17 13:45: POC Glucose (mg/dL) 89 I have reviewed the lab results: Yes - Medication Orders Current Medication Orders: Discontinued Medications Meclizine HCl (Antivert) 25 mg PO STAT STA Stop: 01/25/17 14:13 Last Admin: 01/25/17 14:33 Dose: 25 mg - Scribe Statement The provider has reviewed the documentation as recorded by the Scribe Ashley Vila Provider Scribe Attestation: All medical record entries made by the Scribe were at my direction and personally dictated by me. I have reviewed the chart and agree that the record accurately reflects my personal performance of the history, physical exam, medical decision making, and the department course for this patient. I have also personally directed, reviewed, and agree with the discharge instructions and disposition. Disposition/Present on Arrival - Present on Arrival Any Indicators Present on Arrival: No History of DVT/PE: No History of Uncontrolled Diabetes: No Urinary Catheter: No History Surgical Site Infection Following: None - Disposition Have Diagnosis and Disposition been Completed?: Yes Diagnosis: Dizziness Disposition: HOSPITALIZED Disposition Time: 16:43 Patient Plan: Discharge Condition: GOOD Discharge Instructions (ExitCare): Vertigo (ED), Dizziness (ED) Additional Instructions: PLEASE RETURN TO THE EMERGENCY DEPARTMENT FOR NEW OR WORSENING SYMPTOMS. RETURN RIGHT AWAY IF YOU CANNOT FOLLOW UP WITH YOUR PRIMARY CARE DOCTOR, CLINIC, OR SPECIALIST IN 1-2 DAYS. Referrals: Rohit Quiroga MD [Primary Care Provider] - Follow up with primary Amado Henderson DO [Staff Provider] - Follow up with primary
[2017-01-25 16:55] VITALS: BP 130/69; PULSE 72; O2SAT 99
--- NOTE | 2017-01-26 09:35 | CARD ---
APPROVED REPORT EKG Measurement Heart [id number] MD [id number] <Conclusion> Normal sinus rhythm Normal ECG No change
== END 2017-01-25 16:54 | disposition short-term general hospital (02) ==
LOC: ED 13:05
DX: R42 Dizziness and giddiness (principal)

== ENCOUNTER 2017-02-20 10:33 | Emergency (ER) | payer MEDICARE ==
[2017-02-20 10:33] VITALS: BMI 20.2
[2017-02-20 10:53] VITALS: BP 140/82; PULSE 95; RESP 19; TEMP 98; O2SAT 98
[2017-02-20] MEDS ORDERED: Sodium Chloride 0.9% 1,000 ML IV STA (11:39)
[2017-02-20 13:43] LABS: BASO # 0.02 K/mm3 (0.0-2.0); BASO % 0.6 % (0.0-3.0); EOS # 0.1 (0.0-0.7); EOS % 4.5 % (1.5-5.0); GRAN # 1.73 (1.4-6.5); GRAN % 55.1 % (50.0-68.0); HEMOGLOBIN 12.2 gm/dL (12.0-16.0); LYMPH # 0.9 (1.2-3.4); LYMPH % 27.7 % (22.0-35.0); MEAN CELL VOLUME 87.2 fL (80.0-105.0); MEAN CORPUSCULAR HEMOGLOBIN 29.4 pg (25.0-35.0); MEAN CORPUSCULAR HGB CONC 33.7 g/dl (31.0-37.0); MEAN PLATELET VOLUME 9.8 fl (7.0-11.0); MONO # 0.4 (0.1-0.6); MONO % 12.1 % (1.0-6.0); PLATELET COUNT 179 10^3/uL (120.0-450.0); RBC 4.15 10^6/uL (3.5-6.1); RED CELL DISTRIBUTION WIDTH 12.9 % (11.5-14.5); WHITE BLOOD COUNT 3.1 10^3/ul (4.5-11.0)
[2017-02-20 13:47] LABS: URINE BILIRUBIN NEGATIVE (NEGATIVE); URINE BLOOD TRACE-INTACT (NEGATIVE); URINE GLUCOSE (UA) NEGATIVE (NEGATIVE); URINE LEUKOCYTE ESTERASE TRACE Leu/uL (NEGATIVE); URINE NITRATE NEGATIVE (NEGATIVE); URINE PROTEIN NEGATIVE mg/dL (<30 mg/dL); URINE UROBILINOGEN 0.2 E.U./dL (<1 E.U./dL)
[2017-02-20 13:48] LABS: ALB/GLOB RATIO 1.3 (1.1-1.8); ALBUMIN 3.9 g/dL (3.0-4.8); ALT/SGPT 20 U/L (7-56); AST/SGOT 22 U/L (15-39); BLOOD UREA NITROGEN 13 mg/dL (7-21); CALCIUM 9.1 mg/dL (8.4-10.5); GFR AFRICAN-AMERICAN > 60; GFR NON-AFRICAN AMERICAN > 60; LIPASE 56 U/L (23-300)
[2017-02-20 14:10] LABS: URINE APPEARANCE CLEAR (CLEAR); URINE COLOR LIGHT YELLOW (YELLOW)
[2017-02-21 00:45] LABS: URINE BACTERIA MOD (NEG); URINE EPITHELIAL CELLS 0 - 2 /hpf (0-5); URINE RBC 0 - 2 /hpf (0-2)
--- NOTE | 2017-02-21 11:26 | CARD ---
APPROVED REPORT EKG Measurement Heart [id number] MD [id number] <Conclusion> Normal sinus rhythm Normal ECG
== END 2017-02-20 16:00 | disposition home or self-care (01) ==
LOC: ED 10:33
DX: K52.9 Noninfective gastroenteritis and colitis, unspecified (principal)

== ENCOUNTER 2017-08-14 00:47 | Inpatient (IN) | payer MEDICARE ==
--- NOTE | 2017-08-14 01:41 | ED PDOC ---
Arrival/HPI - General Chief Complaint: GI Problem Time Seen by Provider: 08/14/17 01:41 Historian: Patient - History of Present Illness Narrative History of Present Illness (Text): 08/14/17 01:41 61yoF, with nausea/vomiting, diarrhea without bile or blood and dizzy lightheaded but otherwise otherwise without any headache/dizziness/difficulty breathing/chest pain/abdomen pain/numbness/tingling/loss of limb function/pain with urination. no new foods/travel/sick contacts. PMD: Dr. Quiroga Time/Duration: 24 hours Symptom Onset: Gradual Activities at Onset: Light Context: Home Past Medical History - Provider Review Nursing Documentation Reviewed: Yes - Travel History Have you recently traveled outside [place] w/in the past 3 mons?: No - Infectious Disease Hx of Infectious Diseases: None - Tetanus Immunization Tetanus Immunization: Unknown - Past Medical History Past Medical History: No Previous - Cardiac Hx Cardiac Disorders: No - Pulmonary Hx Respiratory Disorders: No - Neurological Hx Neurological Disorder: Yes Hx Dizziness: Yes Hx Vertigo: Yes Other/Comment: Hydrocephalus - HEENT Hx HEENT Disorder: No - Renal Hx Renal Disorder: No - Endocrine/Metabolic Hx Endocrine Disorders: No - Hematological/Oncological Hx Blood Transfusions: No Hx Blood Transfusion Reaction: No - Integumentary Hx Dermatological Disorder: No - Musculoskeletal/Rheumatological Hx Musculoskeletal Disorders: Yes (HERNIATED DISC) - Gastrointestinal Hx Gastrointestinal Disorders: No - Genitourinary/Gynecological Hx Genitourinary Disorders: No - Psychiatric Hx Anxiety: Yes Hx Emotional Abuse: No Hx Physical Abuse: No Hx Substance Use: No - Past Surgical History Past Surgical History: No Previous - Surgical History Hx Hysterectomy: Yes (2003) Other/Comment: Jaw surgery - Anesthesia Hx Anesthesia: Yes Hx Anesthesia Reactions: Yes (NAUSEA) Hx Malignant Hyperthermia: No - Suicidal Assessment Feels Threatened In Home Enviroment: No Family/Social History - Physician Review Nursing Documentation Reviewed: Yes Family/Social History: No Known Family HX Smoking Status: Never Smoked Hx Alcohol Use: No Hx Substance Use: No Hx Substance Use Treatment: No Allergies/Home Meds Allergies/Adverse Reactions: Allergies acetaminophen [From Percocet] Adverse Reaction (Intermediate, Verified 02/20/17 10:53) IRRITATES STOMACH/ VOMITING codeine Adverse Reaction (Intermediate, Verified 02/20/17 10:53) IRRITATES STOMACH/ VOMITING oxycodone HCl [From Percocet] Adverse Reaction (Intermediate, Verified 02/20/17 10:53) IRRITATES STOMACH/ VOMITING Home Medications: Home Meds Medication Instructions Recorded Confirmed Alprazolam [Xanax] 0.25 mg PO PRN PRN 04/06/12 02/20/17 Acetaminophen/Butalbital/Caf 1 tab PO BID 01/08/17 02/20/17 [Fioricet] Review of Systems - Physician Review All systems were reviewed & negative as marked: Yes - Review of Systems Constitutional: Normal Eyes: Normal ENT: Normal Respiratory: Normal Cardiovascular: Normal Gastrointestinal: Diarrhea, Nausea, Vomiting Genitourinary Female: Normal Musculoskeletal: Normal Skin: Normal Neurological: Normal Endocrine: Normal Hemo/Lymphatic: Normal Psychiatric: Normal Physical Exam Vital Signs Reviewed: Yes Vital Signs Temp Pulse Resp BP Pulse Ox 08/14/17 00:50 98.1 F 119 H 18 117/61 99 Temperature: Afebrile Blood Pressure: Normal Pulse: Tachycardic Respiratory Rate: Normal Appearance: Positive for: Well-Appearing, Non-Toxic, Comfortable Pain Distress: None Mental Status: Positive for: Alert and Oriented X 3 - Systems Exam Head: Present: Atraumatic, Normocephalic Pupils: Present: PERRL Extroacular Muscles: Present: EOMI Conjunctiva: Present: Normal Ears: Present: Normal Mouth: Present: Moist Mucous Membranes Pharnyx: Present: Normal Nose (External): Present: Atraumatic Nose (Internal): Present: Normal Inspection Neck: Present: Normal Range of Motion Respiratory/Chest: Present: Clear to Auscultation, Good Air Exchange Cardiovascular: Present: Regular Rate and Rhythm Abdomen: Present: Tenderness, Distention, Normal Bowel Sounds, Peritoneal Signs Back: Present: Normal Inspection Upper Extremity: Present: Normal Inspection Lower Extremity: Present: Normal Inspection Neurological: Present: GCS=15, CN II-XII Intact, Speech Normal, Motor Func Grossly Intact Skin: Present: Warm, Rashes Psychiatric: Present: Alert, Oriented x 3, Normal Insight, Normal Concentration Medical Decision Making ED Course and Treatment: 08/14/17 01:41 61yoF, with nausea/vomiting, diarrhea without bile or blood and dizzy lightheaded but otherwise otherwise without any headache/dizziness/difficulty breathing/chest pain/abdomen pain/numbness/tingling/loss of limb function/pain with urination. no new foods/travel/sick contacts. You were otherwise breathing easily, smiling with pink lipse_, good strength/sensation, walking easily, clear lungs, no abdomen tenderness, no fever temp 98.1, fast heart rate 119, stable breathing rate 18, excellent oxygen level 99% room air, stable blood pressure 117/61 which we recommend repeat in 2-3 days primary care office to determine further treatment, you have blood tests no infection count 10.4, stable blood level hemoglobin 12.3/platelets 200, stable chemistry sodium , low potassium 2.8, bicarbonate 27, chloride 106, bun 12, creatinine 0.7, glucose 100 , liver AST/ALT 27/24, Liver Alkaline Phosphatase 90, Liver bilirubin 0.5, heart blood test <0.01, , ECG sinus tachycardia, intravenous fluids/zofran done in the ED without improvement and pt states can't take po potassium, feeling generalized weakness, thus paged hospitalist resident Dr. Anaya who stated can admit to Dr. amgana. 08/14/17 05:21 08/14/17 05:24 - Lab Interpretations Lab Results: 08/14/17 01:35 08/14/17 01:35 Lab Results 08/14/17 01:35: PT 11.6, INR 1.06, APTT 26.9 08/14/17 01:35: WBC 10.4 D, RBC 4.16, Hgb 12.3, Hct 37.5, MCV 90.1, MCH 29.6, MCHC 32.8, RDW 13.1, Plt Count 200, MPV 9.6, Gran % 86.0 H, Lymph % (Auto) 11.1 L, [place] % (Auto) 2.0, Eos % (Auto) 0.9 L, Baso % (Auto) 0.0, Gran # 8.92 H, Lymph # 1.2, [place] # 0.2, Eos # 0.1, Baso # 0.00 08/14/17 01:35: Sodium 146, Potassium 2.8 L*, Chloride 106, Carbon Dioxide 27, Anion Gap 15, BUN 12, Creatinine 0.7, Est GFR ( Amer) > 60, Est GFR (Non- Af Amer) > 60, Random Glucose 100, Calcium 9.3, Total Bilirubin 0.5, AST 27, ALT 24, Alkaline Phosphatase 90, Troponin I < 0.01, Total Protein 7.4, Albumin 4.4, Globulin 3.0, Albumin/Globulin Ratio 1.5 I have reviewed the lab results: Yes - EKG Interpretation Interpreted by ED Physician: Yes (sinus tachycardia, similar to 02/20/17.) Type: 12 lead EKG - Medication Orders Current Medication Orders: Potassium Chloride (Potassium Chloride 10 Meq/100 Ml) 10 meq in 100 mls @ 50 mls/hr IVPB Q2H BREANA Stop: 08/14/17 08:44 Last Admin: 08/14/17 05:10 Dose: 50 mls/hr eMAR Start Stop Document 08/14/17 05:10 JOL (Rec: 08/14/17 05:10 JOL [id number]) Intravenous Solution Start Date 08/14/17 Start Time 05:10 End Date 08/14/17 End time 07:10 Total Infusion Time 120 Discontinued Medications Sodium Chloride (Sodium Chloride 0.9%) 1,000 mls @ 999 mls/hr IV .Q1H1M STA Stop: 08/14/17 02:43 Last Admin: 08/14/17 01:20 Dose: 999 mls/hr eMAR Start Stop Document 08/14/17 01:20 JOL (Rec: 08/14/17 02:05 JOL [id number]) Intravenous Solution Start Date 08/14/17 Start Time 01:20 End Date 08/14/17 End time 02:20 Total Infusion Time 60 Magnesium Sulfate/Dextrose (Magnesium Sulfate 1 Gm/100 Ml D5w) 1 gm in 100 mls @ 100 mls/hr IVPB ONCE ONE Stop: 08/14/17 03:38 Last Admin: 08/14/17 03:50 Dose: 100 mls/hr eMAR Start Stop Document 08/14/17 03:50 JOL (Rec: 08/14/17 04:10 JOL [id number]) Intravenous Solution Start Date 08/14/17 Start Time 03:50 End Date 08/14/17 End time 04:50 Total Infusion Time 60 Ondansetron HCl (Zofran Inj) 4 mg IVP STAT STA Stop: 08/14/17 01:44 Last Admin: 08/14/17 01:45 Dose: 4 mg IVP Administration Document 08/14/17 01:45 JOL (Rec: 08/14/17 02:05 JOL [id number]) Charges for Administration # of IVP Administrations 1 Ondansetron HCl (Zofran Inj) 4 mg IM STAT STA Stop: 08/14/17 03:35 Last Admin: 08/14/17 03:50 Dose: 4 mg IM Administration Charges Document 08/14/17 03:50 JOL (Rec: 08/14/17 04:11 JOL [id number]) Charges for Administration # of IM Administrations 1 Pantoprazole Sodium (Protonix Inj) 40 mg IVP STAT STA Stop: 08/14/17 01:45 Last Admin: 08/14/17 02:05 Dose: 40 mg IVP Administration Document 08/14/17 02:05 JOL (Rec: 08/14/17 02:05 JOL [id number]) Charges for Administration # of IVP Administrations 1 Disposition/Present on Arrival - Present on Arrival Any Indicators Present on Arrival: No History of DVT/PE: No History of Uncontrolled Diabetes: No Urinary Catheter: No History of Decub. Ulcer: No History Surgical Site Infection Following: None - Disposition Have Diagnosis and Disposition been Completed?: Yes Diagnosis: Gastroenteritis Disposition: HOSPITALIZED Disposition Time: 05:22 Patient Plan: Admission Condition: STABLE Referrals: Rohit Quiroga MD [Primary Care Provider] - Follow up with primary Forms: [employer] (Thai)
[2017-08-14] MEDS ORDERED: Sodium Chloride 0.9% 1,000 ML IV STA ×3 (01:43→16:04)
[2017-08-14 01:53] LABS: EOS # 0.1 (0.0-0.7); EOS % 0.9 % (1.5-5.0); GRAN # 8.92 (1.4-6.5); HEMOGLOBIN 12.3 g/dL (12.0-16.0); LYMPH # 1.2 (1.2-3.4); LYMPH % 11.1 % (22.0-35.0); MEAN CELL VOLUME 90.1 fl (80.0-105.0); MEAN CORPUSCULAR HEMOGLOBIN 29.6 pg (25.0-35.0); MEAN CORPUSCULAR HGB CONC 32.8 g/dl (31.0-37.0); MEAN PLATELET VOLUME 9.6 fl (7.0-11.0); MONO # 0.2 (0.1-0.6); RBC 4.16 10^6/uL (3.5-6.1); RED CELL DISTRIBUTION WIDTH 13.1 % (11.5-14.5); WHITE BLOOD COUNT 10.4 10^3/ul (4.5-11.0)
[2017-08-14 02:31] LABS: ALB/GLOB RATIO 1.5 (1.1-1.8); ALBUMIN 4.4 g/dL (3.0-4.8); ALT/SGPT 24 U/L (7-56); AST/SGOT 27 U/L (14-36); BLOOD UREA NITROGEN 12 mg/dL (7-21); CALCIUM 9.3 mg/dL (8.4-10.5); GFR AFRICAN-AMERICAN > 60; GFR NON-AFRICAN AMERICAN > 60
[2017-08-14 02:38] LABS: INR 1.06 (0.93-1.08); PARTIAL THROMBOPLASTIN TIME 26.9 Seconds (25.1-36.5); PROTHROMBIN TIME 11.6 SECONDS (9.4-12.5); TROPONIN I < 0.01 ng/mL
[2017-08-14] MEDS ORDERED: Potassium Chloride 40 mEq/30 ml LIQ UD PO STA (02:38)
[2017-08-14] MEDS ORDERED: Magnesium Sulfate 1 gm in D5W 1 GM/100 ML BAG IVPB ONE (02:39)
[2017-08-14] MEDS ORDERED: Lactated Ringer's 1,000 ML IV SCH (06:15)
[2017-08-14] MEDS ORDERED: Piperacill/Tazo 4.5gm in NS 4.5 GM/100 ML BAG IVPB STA (06:15)
[2017-08-14 06:35] LABS: URINE BILIRUBIN NEGATIVE (NEGATIVE); URINE BLOOD TRACE-INTACT (NEGATIVE); URINE GLUCOSE (UA) NEGATIVE (NEGATIVE); URINE LEUKOCYTE ESTERASE SMALL Leu/uL (NEGATIVE); URINE NITRATE NEGATIVE (NEGATIVE); URINE PROTEIN NEGATIVE mg/dL (<30 mg/dL); URINE UROBILINOGEN 0.2 E.U./dL (<1 E.U./dL)
[2017-08-14 06:37] LABS: URINE APPEARANCE CLEAR (CLEAR); URINE COLOR YELLOW (YELLOW)
[2017-08-14 06:52] LABS: VENOUS BLOOD GAS BASE EXCESS -0.3 mmol/L (0.0-2.0); VENOUS BLOOD GAS PO2 81 mm/Hg (30-55); VENOUS BLOOD PH 7.41 (7.32-7.43)
[2017-08-14 06:53] LABS: URINE BACTERIA MOD (NEG); URINE RBC 0 - 2 /hpf (0-2); URINE WBC 15 - 20 /hpf (0-6)
[2017-08-14] MEDS: Sodium Chloride 0.9% 1,000 ML IV SCH ×3 (07:31→22:12)
--- NOTE | 2017-08-14 07:41 | CP.PCM.HP ---
<Tanya Anaya - Last Filed: 08/14/17 07:09> History of Present Illness - History of Present Illness History of Present Illness: Tanya Anaya DO PGY1 - Internal Medicine H&P CC: Generalized weakness, vomiting HPI: 61 yo F with PMH of vertigo presents complaining of generalized weakness and vomiting since midnight. She reports that at midnight, she had sharp cramping pain in lateral aspects of both lower legs, then got nauseous and vomited 7 times, nonbloody, nonbilious. She denies fevers, chills, diarrhea, constipation, abdominal pain, chest pain, shortness of breath, palpitations, cough. She does admit to dysuria and urinary frequency for the past three weeks. She also admits to dizziness, which she describes as lightheadedness. She denies focal weakness, numbness, or parasthesias. Remainder of 12 point ROS was negative. PMH: Vertigo PSH: Back surgery, Jaw surgery, Hysterectomy Soc: Denies tobacco, alcohol, or illicits FHx: Mother with ovarian cancer All: Acetaminophen, Codeine, Oxycodone Present on Admission - Present on Admission Any Indicators Present on Admission: No Past Patient History - Infectious Disease Hx of Infectious Diseases: None - Tetanus Immunizations Tetanus Immunization: Unknown - Past Social History Smoking Status: Never Smoked - CARDIAC Hx Cardiac Disorders: No - PULMONARY Hx Respiratory Disorders: No - NEUROLOGICAL Hx Neurological Disorder: Yes Hx Dizziness: Yes Hx Vertigo: Yes Other/Comment: Hydrocephalus - HEENT Hx HEENT Problems: No - RENAL Hx Chronic Kidney Disease: No - ENDOCRINE/METABOLIC Hx Endocrine Disorders: No - HEMATOLOGICAL/ONCOLOGICAL Hx Blood Transfusions: No Hx Blood Transfusion Reaction: No - INTEGUMENTARY Hx Dermatological Problems: No - MUSCULOSKELETAL/RHEUMATOLOGICAL Hx Musculoskeletal Disorders: Yes (HERNIATED DISC) - GASTROINTESTINAL Hx Gastrointestinal Disorders: No - GENITOURINARY/GYNECOLOGICAL Hx Genitourinary Disorders: No - PSYCHIATRIC Hx Anxiety: Yes Hx Emotional Abuse: No Hx Physical Abuse: No Hx Substance Use: No - SURGICAL HISTORY Hx Hysterectomy: Yes (2003) Other/Comment: Jaw surgery - ANESTHESIA Hx Anesthesia: Yes Hx Anesthesia Reactions: Yes (NAUSEA) Hx Malignant Hyperthermia: No Meds Allergies/Adverse Reactions: Allergies Allergy/AdvReac Type Severity Reaction Status Date / Time codeine AdvReac Intermediate IRRITATES Verified 08/14/17 12:05 STOMACH/ VOMITING oxycodone HCl [From Percocet] AdvReac Intermediate IRRITATES Verified 08/14/17 12:05 STOMACH/ VOMITING Physical Exam - Constitutional Appears: Non-toxic, No Acute Distress - Head Exam Head Exam: ATRAUMATIC, NORMOCEPHALIC - Eye Exam Eye Exam: EOMI, Normal appearance, PERRL - ENT Exam ENT Exam: Mucous Membranes Moist - Neck Exam Neck exam: Positive for: Normal Inspection - Respiratory Exam Respiratory Exam: Clear to Auscultation Bilateral, NORMAL BREATHING PATTERN - Cardiovascular Exam Cardiovascular Exam: Tachycardia, REGULAR RHYTHM, +S1, +S2 - GI/Abdominal Exam GI & Abdominal Exam: Hypoactive Bowel Sounds, Soft, Tenderness (suprapubic) - Extremities Exam Extremities exam: Negative for: calf tenderness, pedal edema - Neurological Exam Neurological exam: Alert, Oriented x3 - Psychiatric Exam Psychiatric exam: Normal Affect, Normal Mood - Skin Skin Exam: Dry, Intact, Normal Color Results - Vital Signs Recent Vital Signs: Last Vital Signs Temp 101.9 F H 08/14/17 05:55 Pulse 117 H 08/14/17 05:30 Resp 18 08/14/17 05:30 BP 115/66 08/14/17 05:30 Pulse Ox 95 08/14/17 05:30 - Labs Result Diagrams: 08/14/17 01:35 08/14/17 01:35 Assessment & Plan - Assessment and Plan (Free Text) Assessment: 61 yo F with PMH of vertigo presents with generalized weakness, vomiting x7, and dysuria/frequency x3 weeks; noted to be markedly hypokalemic on intake labs Plan Generalized weakness - Likely 2/2 SIRS/Sepsis with associated vomiting and hypokalemia - Patient with tachycardia, fever, and lactate 2.8; complaining of dysuria and frequency, with indeterminate UA - Recheck VBG with lactate at 0840 - Patient given fluid bolus in the ER, and IV Zosyn - Blood cultures and urine cultures ordered; no focal consolidations seen on CXR , pending official read - Continue Zosyn; most likely UTI vs intraabdominal infection - Continue IVF NS@160cc/hr - Ibuprofen PRN for fever - ID consult requested, appreciate recs Hypokalemia - Likely 2/2 SIRS/Sepsis vs contraction alkalosis 2/2 vomiting - No EKG changes noted - Patient received 2gm Magnesium Sulfate and 20 mEq KCl in the ER - Recheck K with CMP at noon Nausea/Vomiting - Resolved since arriving to ER, no abdominal pain - Likely 2/2 SIRS/Sepsis - Continue PRN zofran GI Ppx: Protonix PO DVT Ppx: Heparin Patient seen, discussed, and reviewed with attending Dr. Bang <Enma Bang - Last Filed: 08/14/17 21:15> Results - Vital Signs Recent Vital Signs: Last Vital Signs Temp 98.6 F 08/14/17 20:00 Pulse 101 H 08/14/17 21:00 Resp 25 H 08/14/17 21:00 BP 97/56 L 08/14/17 21:00 Pulse Ox 93 L 08/14/17 21:00 - Labs Result Diagrams: 08/14/17 12:10 08/14/17 12:10 Labs: Laboratory Results - last 24 hr 08/14/17 08/14/17 08/14/17 08:25 08:25 08:40 WBC RBC Hgb Hct MCV MCH MCHC RDW Plt Count MPV Gran % Lymph % (Auto) [place] % (Auto) Eos % (Auto) Baso % (Auto) Gran # Lymph # [place] # Eos # Baso # pO2 178 H VBG pH 7.39 VBG pCO2 35.0 L VBG HCO3 21.2 VBG Total CO2 22.3 VBG O2 Sat (Calc) 99.4 H VBG Base Excess -3.1 L VBG Potassium 3.6 Sodium 141.0 Chloride 115.0 H Glucose 106 H Lactate 1.4 FiO2 21.0 Potassium Carbon Dioxide Anion Gap BUN Creatinine Est GFR ( Amer) Est GFR (Non-Af Amer) Random Glucose Calcium Phosphorus 2.8 Magnesium 1.7 Total Bilirubin AST ALT Alkaline Phosphatase Total Protein Albumin Globulin Albumin/Globulin Ratio Procalcitonin < 0.05 L Venous Blood Potassium 3.6 Influenza Typ A,B (EIA) 08/14/17 08/14/17 08/14/17 10:18 12:10 12:10 WBC 7.2 D RBC 3.41 L Hgb 10.2 L D Hct 30.6 L MCV 89.7 MCH 29.9 MCHC 33.3 RDW 13.3 Plt Count 137 MPV 9.1 Gran % 85.2 H Lymph % (Auto) 6.3 L [place] % (Auto) 4.9 Eos % (Auto) 3.6 Baso % (Auto) 0.0 Gran # 6.13 Lymph # 0.5 L [place] # 0.4 Eos # 0.3 Baso # 0.00 pO2 VBG pH VBG pCO2 VBG HCO3 VBG Total CO2 VBG O2 Sat (Calc) VBG Base Excess VBG Potassium Sodium 144 Chloride 114 H Glucose Lactate FiO2 Potassium 4.0 Carbon Dioxide 20 L Anion Gap 13 BUN 8 Creatinine 0.8 Est GFR ( Amer) > 60 Est GFR (Non-Af Amer) > 60 Random Glucose 105 Calcium 7.8 L Phosphorus Magnesium Total Bilirubin 0.8 AST 20 ALT 19 Alkaline Phosphatase 68 Total Protein 5.4 L Albumin 3.0 Globulin 2.4 Albumin/Globulin Ratio 1.3 Procalcitonin Venous Blood Potassium Influenza Typ A,B (EIA) Negative for flu a/b
[2017-08-14 08:41] LABS: VENOUS BLOOD GAS BASE EXCESS -3.1 mmol/L (0.0-2.0); VENOUS BLOOD GAS PO2 178 mm/Hg (30-55); VENOUS BLOOD PH 7.39 (7.32-7.43)
[2017-08-14 08:46] LABS: MAGNESIUM 1.7 mg/dL (1.7-2.2)
--- NOTE | 2017-08-14 09:03 | CP.PCM.PN ---
Subjective - Date & Time of Evaluation Date of Evaluation: 08/14/17 Time of Evaluation: 08:59 - Subjective Subjective: Patient was seen again with patrol sergeant sheriff's office. After discussion with the patient, she refused the possibility of a central line. The risks and benefits of the procedure were explained in great detail to the patient. She admitted to understanding the benefits and risks involved, however, she still refused any potential central line placement at any site. This was discussed between myself , patrol sergeant sheriff's office, ED nurse, and the patient. Patient will be admitted to the ICU for further care. Objective - Vital Signs/Intake and Output Vital Signs (last 24 hours): Temp Pulse Resp BP Pulse Ox 98.5 F 105 H 18 90/44 L 97 08/14/17 08:54 08/14/17 08:54 08/14/17 08:54 08/14/17 08:54 08/14/17 08:54 - Medications Medications: Current Medications Heparin Sodium (Porcine) (Heparin) 5,000 units SC Q8 BREANA PRN Reason: Protocol Last Admin: 08/14/17 07:30 Dose: 5,000 units Piperacillin Sod/Tazobactam Sod (Zosyn 3.375 In Ns 100ml) 100 mls @ 200 mls/hr IVPB Q6 BREANA PRN Reason: Protocol Stop: 08/14/17 18:29 Sodium Chloride (Sodium Chloride 0.9%) 1,000 mls @ 160 mls/hr IV .Q6H15M [facility] Last Admin: 08/14/17 07:31 Dose: 160 mls/hr Sodium Chloride (Sodium Chloride 0.9%) 1,000 mls @ 999 mls/hr IV .Q1H1M STA Stop: 08/14/17 09:04 Last Admin: 08/14/17 08:07 Dose: 999 mls/hr Ibuprofen (Motrin Tab) 400 mg PO Q6H PRN PRN Reason: Fever >100.4 F Ondansetron HCl (Zofran Inj) 4 mg IVP Q4H PRN PRN Reason: Nausea/Vomiting Pantoprazole Sodium (Protonix Ec Tab) 40 mg PO 0600 [facility] - Labs Labs: PT 11.6 SECONDS (9.4-12.5) 08/14/17 01:35 INR 1.06 (0.93-1.08) 08/14/17 01:35 APTT 26.9 Seconds (25.1-36.5) 08/14/17 01:35
--- NOTE | 2017-08-14 09:47 | CARD ---
APPROVED REPORT EKG Measurement Heart [id number] <Conclusion> Sinus tachycardia Nonspecific ST abnormality Artifact present
--- NOTE | 2017-08-14 11:29 | CT ---
PROCEDURE: CT Abdomen and Pelvis without intravenous contrast HISTORY: pyelonephritis COMPARISON: None. TECHNIQUE: Unenhanced study. Neither oral nor intravenous contrast administered. Sensitivity and specificity for acute inflammatory processes limited by the absence of oral and intravenous contrast. In a clinical presentation suspected pyelonephritis unenhanced study also limits assessment of this diagnostic consideration. Radiation dose: Total exam DLP = mGy-cm. This CT exam was performed using one or more of the following dose reduction techniques: Automated exposure control, adjustment of the mA and/or kV according to patient size, and/or use of iterative reconstruction technique. FINDINGS: LOWER THORAX: Unremarkable. LIVER: Unremarkable. No gross lesion or ductal dilatation. GALLBLADDER AND BILE DUCTS: Cholelithiasis without CT evidence of acute cholecystitis. Solitary less than 2 mm gallstone layers in the gallbladder. PANCREAS: Unremarkable. No gross lesion or ductal dilatation. SPLEEN: Unremarkable. ADRENALS: Unremarkable. No mass. KIDNEYS AND URETERS: Unremarkable. No hydronephrosis. No solid mass. VASCULATURE: Unremarkable. No aortic aneurysm. BOWEL: Diverticulosis without an acute inflammatory component or other associated pathologic process. APPENDIX: Unremarkable. Normal appendix. PERITONEUM: Unremarkable. No free fluid. No free air. LYMPH NODES: Unremarkable. No enlarged lymph nodes. BLADDER: Mild bladder wall thickening. Findings may represent cystitis. REPRODUCTIVE: Unremarkable. BONES: No acute fracture. Scoliosis, secondary degenerative change at multiple levels. Degenerative changes most severe at L4-5 and L5-S1. OTHER FINDINGS: Asymmetric breast tissue right breast compared the left a finding identified on a prior CT 08/28/2015. Comparison mammogram May 11, 2017 reviewed as well. IMPRESSION: Mildly thickened urinary bladder wall. Cystitis should be considered. Cholelithiasis without CT evidence of acute cholecystitis. Limitations of the current examination: Absence of intravenous contrast precludes optimal assessment of kidneys and collecting systems or urinary tract infection.
[2017-08-14] MEDS ORDERED: Piperacillin/Tazobact 3.375 gm 100 ML IVPB SCH (12:00)
--- NOTE | 2017-08-14 12:00 | CON ---
DATE: 08/14/2017 HISTORY OF PRESENT ILLNESS: This is 61-year-old lady with a history of vertigo who presented with generalized weakness, and diarrhea, nonbloody that started around midnight and nonbloody vomiting that started around the same time. Her symptoms progressed and were getting worse since that period of time. She denies abdominal pain though. No chest pain, no shortness of breath, no chills. The patient also was found to have fever in the Emergency Room. Despite 2 liters of normal saline, her blood pressure dropped down and ICU consult was called for further management and monitoring. Of note, urinalysis was positive for leukocyte esterase. The patient did have a history of UTI; however, it has been treated. PAST MEDICAL HISTORY: Vertigo. PAST SURGICAL HISTORY: Back surgery, jaw surgery, and hysterectomy. SOCIAL HISTORY: No alcohol, illicit drug abuse. No tobacco smoking. FAMILY HISTORY: Noncontributory. ALLERGIES: ACETAMINOPHEN, CODEINE, AND OXYCODONE. MEDICATIONS AT HOME: Xanax and meclizine. REVIEW OF SYSTEMS: Review of 12-organ system other than mentioned in history present illness is negative. PHYSICAL EXAMINATION: VITAL SIGNS: Blood pressure 90/40, heart rate 105, respiratory rate 18, oxygen saturation 96% on room air, and temperature 101.2. HEENT: Head and neck atraumatic. LUNGS: Clear to auscultation bilaterally. HEART: Regular rate and rhythm. S1 and S2 normal. ABDOMEN: Soft, nontender, and nondistended. MUSCULOSKELETAL: No C/C/E. NEUROLOGIC: The patient moves all extremities spontaneously. SKIN: Moist. PSYCHIATRIC: The patient is alert and oriented times x3, capable of making her own decision. LABORATORY DATA: Urine is positive for leukocyte esterase, wbc's and bacteria. CBC showed WBC 10.4, hemoglobin 12.3, and platelet count 200. Sodium 146, potassium 3.8, chloride 106, BUN 12, creatinine 0.7, phosphorus 2.8, magnesium 1.7, glucose 100, AST 27, and ALT 24. Troponin less than 0.01. Venous blood potassium since it was replaced is 3.6. INR is 1.06. Lactic acid 1.4 down from 2.8. PH 7.39. MEDICATIONS: The patient received in the Emergency Room include heparin subcu, ibuprofen p.r.n., Zofran p.r.n., Protonix, normal saline 160 mL/hour, and Zosyn. ASSESSMENT AND PLAN: This is a 61-year-old lady who presented with severe sepsis/septic shock due to what appears to be urinary tract infection. Colitis cannot be ruled out. At the present time, we will proceed with fluid resuscitation, CAT scan of the abdomen and pelvis, broad-spectrum antibiotics, septic work-up, ID Service consult was requested. We will also get the procalcitonin, blood, and urine culture. Chest x-ray showed no acute pulmonary disease. We will continue to target euvolemia, euglycemia, normothermia and oxygen saturation more than 90%. Of note, I had a lengthy discussion about the central line placement as the patient already received 2 liters of normal saline and her blood pressure is still borderline. We may consider vasopressor therapy for hemodynamic support. She verbalized understanding of risks relating to utilizing vasopressor medication via peripheral IV; however, she clearly states that she would like to avoid central line at all cost and if pressors required she would prefer PIV rather then CVL for its administration despite risks associated. That conversation has taken place in the presence of Elmer, the resident, and RN. The patient possess capacity for making her own decisions. She also refused Sparks catheter placement as well. We will take the patient to the ICU for hemodynamic monitoring. We will continue with IV fluids. We will continue with DVT, GI prophylaxis. Addendum: CT abdomen/pelvis showed changes suggestive of cystitis, but no colitis. Diverticulosis but not itis Once in the ICU BP 101/70, subjectively feeling better. Will avoid significant positive fluid balance. ccm time 40 min Asif Lauren MD CARTER
[2017-08-14 12:21] LABS: EOS # 0.3 (0.0-0.7); EOS % 3.6 % (1.5-5.0); GRAN # 6.13 (1.4-6.5); GRAN % 85.2 % (50.0-68.0); HEMOGLOBIN 10.2 g/dL (12.0-16.0); LYMPH # 0.5 (1.2-3.4); LYMPH % 6.3 % (22.0-35.0); MEAN CELL VOLUME 89.7 fl (80.0-105.0); MEAN CORPUSCULAR HEMOGLOBIN 29.9 pg (25.0-35.0); MEAN CORPUSCULAR HGB CONC 33.3 g/dl (31.0-37.0); MEAN PLATELET VOLUME 9.1 fl (7.0-11.0); MONO # 0.4 (0.1-0.6); MONO % 4.9 % (1.0-6.0); RBC 3.41 10^6/uL (3.5-6.1); RED CELL DISTRIBUTION WIDTH 13.3 % (11.5-14.5); WHITE BLOOD COUNT 7.2 10^3/ul (4.5-11.0)
[2017-08-14 12:31] LABS: ALB/GLOB RATIO 1.3 (1.1-1.8); ALT/SGPT 19 U/L (7-56); AST/SGOT 20 U/L (14-36); BLOOD UREA NITROGEN 8 mg/dL (7-21); CALCIUM 7.8 mg/dL (8.4-10.5); GFR AFRICAN-AMERICAN > 60; GFR NON-AFRICAN AMERICAN > 60
--- NOTE | 2017-08-14 13:24 | RAD ---
HISTORY: 61yoF, n/v, fever. COMPARISON: 01/08/2017 FINDINGS: LUNGS: No active pulmonary disease. PLEURA: No significant pleural effusion identified, no pneumothorax apparent. CARDIOVASCULAR: No radiographic findings to suggest acute or significant cardiovascular disease. OSSEOUS STRUCTURES: No significant abnormalities. VISUALIZED UPPER ABDOMEN: Normal. OTHER FINDINGS: None. IMPRESSION: No active disease. No significant interval change compared to the prior examination(s).
[2017-08-14 14:03] VITALS: BMI 17.5
[2017-08-14] MEDS ORDERED: Influenza Vaccine 60 mcg/0.5 mL SYR (4YR UP) IM ONE (14:03)
[2017-08-14] MEDS ORDERED: Pneumococcal 23-Valent Vaccine IM ONE (14:03)
--- NOTE | 2017-08-14 14:21 | PCM.SEPTIC ---
Addendum entered and electronically signed by Elmer Michaud DO 08/14/17 14: 45: Patient was seen and examined at bedside. Patient clinically improving from admission. Patient states she is feeling better at this time. She will continue to be monitored in the ICU and receive treatment. Original Note: Sepsis Progress Note - Reassessment Type Date of Evaluation: 08/14/17 Time of Evaluation: 14:20 Reassessment Type: Non-invasive reassessment - Non Invasive Reassessment Were the most recent vital sign reviewed: Yes Vital Sign (Latest): Temp Pulse Resp BP Pulse Ox 98.8 F 103 H 24 91/56 L 95 08/14/17 13:15 08/14/17 14:01 08/14/17 14:01 08/14/17 14:01 08/14/17 14:01 Cardiovascular: Yes: Regular Rate, Rhythm Respiratory: Yes: Normal Breath Sounds Capillary Refill: Normal (Less than 2 sec) Skin: Warm, Pale
[2017-08-14] MEDS: Piperacillin/Tazobact 3.375 gm 100 ML IVPB SCH (18:24)
[2017-08-14 23:10] LABS: BLOOD UREA NITROGEN 8 mg/dL (7-21); CALCIUM 8.1 mg/dL (8.4-10.5); GFR AFRICAN-AMERICAN > 60; GFR NON-AFRICAN AMERICAN > 60
[2017-08-15] MEDS: Sodium Chloride 0.9% 1,000 ML IV SCH ×3 (00:45→16:56)
[2017-08-15] MEDS: Piperacillin/Tazobact 3.375 gm 100 ML IVPB SCH ×5 (05:30→22:59)
[2017-08-15] MEDS: Pantoprazole 40 mg EC Tab PO SCH (05:36)
[2017-08-15 06:25] LABS: ALB/GLOB RATIO 1.2 (1.1-1.8); ALBUMIN 2.8 g/dL (3.0-4.8); ALT/SGPT 60 U/L (7-56); AST/SGOT 57 U/L (14-36); BLOOD UREA NITROGEN 7 mg/dL (7-21); CALCIUM 8.2 mg/dL (8.4-10.5); GFR AFRICAN-AMERICAN > 60; GFR NON-AFRICAN AMERICAN > 60; HDL CHOLESTEROL 33 mg/dL (29-60)
[2017-08-15 06:27] LABS: EOS # 0.7 (0.0-0.7); EOS % 12.1 % (1.5-5.0); GRAN # 3.91 (1.4-6.5); GRAN % 70.7 % (50.0-68.0); HEMOGLOBIN 9.5 g/dL (12.0-16.0); LYMPH # 0.6 (1.2-3.4); LYMPH % 11.2 % (22.0-35.0); MEAN CELL VOLUME 90.1 fl (80.0-105.0); MEAN CORPUSCULAR HEMOGLOBIN 29.5 pg (25.0-35.0); MEAN CORPUSCULAR HGB CONC 32.8 g/dl (31.0-37.0); MEAN PLATELET VOLUME 9.6 fl (7.0-11.0); MONO # 0.3 (0.1-0.6); RBC 3.22 10^6/uL (3.5-6.1); RED CELL DISTRIBUTION WIDTH 13.3 % (11.5-14.5); WHITE BLOOD COUNT 5.5 10^3/ul (4.5-11.0)
[2017-08-15 06:30] LABS: LDL CHOLESTEROL 47 mg/dL (0-129)
--- NOTE | 2017-08-15 12:26 | PN ---
DATE: 08/15/2017 SUBJECTIVE: The patient is in bed and seen in the ICU 128, bed #7. Temperature is on the downward trend with a temperature of 100.8, respiratory rate of 21, heart rate of 97, blood pressure is 116/60 and blood pressure had dropped yesterday to 78/40, and microbiology reveals a gram-negative benita in the urine and blood cultures are negative. White count is 5.5, hemoglobin of 9, platelets of 134. Chemistries reveals a BUN of 7, creatinine of 0.7. Urinalysis is 15-20 WBCs, moderate bacteria. Influenza is negative. Urine for Legionella antigen is negative, and the patient had a CT scan of the abdomen and pelvis, which is noted. ASSESSMENT AND PLAN: This is a 61-year-old female with severe sepsis with gram-negative benita in urine as a source and cystitis, currently on Zosyn. Awaiting for identification and sensitivities of Zosyn and the patient is also on doxycycline. The patient also with an episode of hypotension yesterday, prompting the patient to be transferred to the ICU. Chest x-ray is negative and procalcitonin is negative. We will change the doxycycline to p.o. We will follow closely with you. Alexis Marroquin MD
--- NOTE | 2017-08-15 14:04 | PN ---
DATE: 08/15/2017 SUBJECTIVE: The patient seen and examined at bedside. She is more comfortable, feeling better and stronger. OBJECTIVE: VITAL SIGNS: Temperature 98.7, blood pressure 116/63, respiratory rate 19, oxygen saturation 94% on nasal cannula. HEENT: Head and neck atraumatic. LUNGS: Clear to auscultation bilaterally. HEART: Regular rate and rhythm. S1 and S2 normal. ABDOMEN: Soft, nontender and nondistended. MUSCULOSKELETAL: No C/C/E. NEUROLOGIC: The patient moves all extremities spontaneously. SKIN: Moist. PSYCH: The patient is alert and oriented x3. LABORATORY DATA: WBC 5.5, hemoglobin 9.5, platelet count 134. Sodium 141, potassium 3.7, chloride 115, BUN 7, creatinine 0.7, glucose 98, AST 57, ALT 60 (Tylenol stopped). Procalcitonin less than 0.05. Influenza negative, legionella negative. MEDICATIONS: Xanax,doxycycline, heparin subcu, ibuprofen p.r.n., Zofran p.r.n., Protonix, normal saline 160 mL/hour, and Zosyn. ASSESSMENT AND PLAN: This 61-year-old lady who presented with severe sepsis secondary to urinary tract infection. A urine is positive for gram-negative rods. At present time, the patient is doing much better. She is afebrile, does not have any leukocytosis. Does not have any signs of end-organ dysfunction. She is mentating well. She does not have acute kidney injury. Her blood pressure substantially improved. Troponin less than 0.01. Procalcitonin less than 0.05. I will continue to target euvolemia, euglycemia, normothermia and oxygen saturation more than 90%. We will continue with deep venous thrombosis and gastrointestinal prophylaxis. Ok to downgrade to [id number] ccm time 40 min Asif Lauren MD MTDD
[2017-08-15 16:47] VITALS: RESP 20
--- NOTE | 2017-08-15 17:58 | CP.PCM.PN ---
Subjective - Date & Time of Evaluation Date of Evaluation: 08/15/17 Time of Evaluation: 12:00 - Subjective Subjective: Patient was seen and examined at bedside in no acute distress. Patient states that she feels much better in comparison to yesterday. Still complains of nausea , however denies vomiting. Admits to improvement in leg pain which patient was complaining of yesterday. Discussed with family the reason patient was found to be septic, admitted to the ICU, and transferred to telemetry. Patient denies chest pain, abdominal pain, shortness of breath, fevers, chills, cough. Objective - Vital Signs/Intake and Output Vital Signs (last 24 hours): Temp Pulse Resp BP Pulse Ox 98.2 F 99 H 20 113/67 95 08/15/17 16:46 08/15/17 16:46 08/15/17 16:46 08/15/17 16:46 08/15/17 16:46 Intake and Output: 08/15/17 08/15/17 06:59 18:59 Intake Total 2120 Output Total 800 Balance 1320 - Medications Medications: Current Medications Alprazolam (Xanax) 0.25 mg PO BID PRN; Protocol PRN Reason: Anxiety Stop: 08/21/17 18:01 Last Admin: 08/14/17 21:54 Dose: 0.25 mg Doxycycline Hyclate (Doryx) 100 mg PO Q12 BREANA PRN Reason: Protocol Stop: 08/24/17 22:01 Heparin Sodium (Porcine) (Heparin) 5,000 units SC Q8 BREANA PRN Reason: Protocol Last Admin: 08/15/17 13:56 Dose: 5,000 units Sodium Chloride (Sodium Chloride 0.9%) 1,000 mls @ 160 mls/hr IV .Q6H15M [facility] Last Admin: 08/15/17 16:56 Dose: 160 mls/hr Piperacillin Sod/Tazobactam Sod (Zosyn 3.375 In Ns 100ml) 100 mls @ 200 mls/hr IVPB Q6 BREANA PRN Reason: Protocol Stop: 08/23/17 18:01 Last Admin: 08/15/17 13:33 Dose: 200 mls/hr Ibuprofen (Motrin Tab) 400 mg PO Q6H PRN PRN Reason: Fever >100.4 F Last Admin: 08/15/17 05:36 Dose: 400 mg Ondansetron HCl (Zofran Inj) 4 mg IVP Q4H PRN PRN Reason: Nausea/Vomiting Last Admin: 08/15/17 13:56 Dose: 4 mg Pantoprazole Sodium (Protonix Ec Tab) 40 mg PO 0600 BREANA Last Admin: 08/15/17 05:36 Dose: 40 mg - Labs Labs: 08/15/17 05:30 08/15/17 05:30 PT 11.6 SECONDS (9.4-12.5) 08/14/17 01:35 INR 1.06 (0.93-1.08) 08/14/17 01:35 APTT 26.9 Seconds (25.1-36.5) 08/14/17 01:35 - Constitutional Appears: Non-toxic, No Acute Distress - Head Exam Head Exam: ATRAUMATIC, NORMAL INSPECTION, NORMOCEPHALIC - Eye Exam Eye Exam: EOMI, Normal appearance - ENT Exam ENT Exam: Mucous Membranes Moist, Normal Exam - Respiratory Exam Respiratory Exam: Clear to Ausculation Bilateral, NORMAL BREATHING PATTERN - Cardiovascular Exam Cardiovascular Exam: REGULAR RHYTHM, +S1, +S2 Assessment and Plan - Assessment and Plan (Free Text) Assessment: 61 yo F with PMH of vertigo presents with generalized weakness, vomiting x7, and dysuria/frequency x3 weeks; noted to be markedly hypokalemic on intake labs Plan: Generalized weakness - Likely 2/2 SIRS/Sepsis with associated vomiting and hypokalemia - Patient with tachycardia, fever, and lactate 2.8; complaining of dysuria and frequency, with indeterminate UA - Recheck VBG with lactate at 0840 is 1.4. - Patient given fluid bolus in the ER, and IV Zosyn - Blood cultures and urine cultures ordered; blood culture shows no growth after 48 hours, urine culture positive for gram negative benita - Chest x-ray reveals no active disease - Continue Zosyn - Continue IVF NS@160cc/hr - Ibuprofen PRN for fever - ID consult requested, doxycycline added to antiobiotic regimen Hypokalemia - Likely 2/2 SIRS/Sepsis vs contraction alkalosis 2/2 vomiting - No EKG changes noted - Patient received 2gm Magnesium Sulfate and 20 mEq KCl in the ER - Recheck K with CMP at noon; potassium stable Nausea/Vomiting - Patient continues to have nausea, has improved - Continue PRN zofran GI Ppx: Protonix PO DVT Ppx: Heparin Patient seen, discussed, and reviewed with attending Dr. Gan
[2017-08-16] MEDS: Piperacillin/Tazobact 3.375 gm 100 ML IVPB SCH ×4 (05:39→23:06)
[2017-08-16] MEDS: Sodium Chloride 0.9% 1,000 ML IV SCH ×4 (05:39→23:13)
[2017-08-16] MEDS: Pantoprazole 40 mg EC Tab PO SCH (05:57)
[2017-08-16 07:40] LABS: BASO # 0.01 K/mm3 (0.0-2.0); BASO % 0.2 % (0.0-3.0); EOS # 0.7 (0.0-0.7); EOS % 10.7 % (1.5-5.0); GRAN # 3.71 (1.4-6.5); GRAN % 58.2 % (50.0-68.0); HEMOGLOBIN 9.9 g/dL (12.0-16.0); LYMPH # 1.2 (1.2-3.4); LYMPH % 18.2 % (22.0-35.0); MEAN CELL VOLUME 89.7 fl (80.0-105.0); MEAN CORPUSCULAR HEMOGLOBIN 29.2 pg (25.0-35.0); MEAN CORPUSCULAR HGB CONC 32.6 g/dl (31.0-37.0); MEAN PLATELET VOLUME 9.4 fl (7.0-11.0); MONO # 0.8 (0.1-0.6); MONO % 12.7 % (1.0-6.0); RBC 3.39 10^6/uL (3.5-6.1); RED CELL DISTRIBUTION WIDTH 13.2 % (11.5-14.5); WHITE BLOOD COUNT 6.4 10^3/ul (4.5-11.0)
[2017-08-16 07:57] LABS: ALB/GLOB RATIO 1.2 (1.1-1.8); ALBUMIN 2.9 g/dL (3.0-4.8); ALT/SGPT 53 U/L (7-56); AST/SGOT 38 U/L (14-36); BLOOD UREA NITROGEN 6 mg/dL (7-21); CALCIUM 8.7 mg/dL (8.4-10.5); GFR AFRICAN-AMERICAN > 60; GFR NON-AFRICAN AMERICAN > 60
--- NOTE | 2017-08-16 08:33 | CP.PCM.PN ---
<Lilliana Cat - Last Filed: 08/16/17 13:18> Subjective - Date & Time of Evaluation Date of Evaluation: 08/16/17 Time of Evaluation: 08:30 - Subjective Subjective: PGY2 Medicine note for Dr. Bang Patient seen and examined at bedside. She was seen walking to and from bathroom. Patient reports she continues to feel a little weak but has improved. She had one episode of vomitus overnight of food contents [nonbloody nonbilious] . Patent continues to feel nauseous but has improved since admission. She continues to have polyuria but reports dysuria has improved. Denied acute complaints of fever, chills, headache, dizziness, chest pain, palpitations, SOB , cough, abd pain, bowel complaints, pain/swelling in her legs bilaterally. Objective - Vital Signs/Intake and Output Vital Signs (last 24 hours): Temp Pulse Resp BP Pulse Ox 98.2 F 99 H 20 113/67 95 08/15/17 16:46 08/15/17 16:46 08/15/17 16:46 08/15/17 16:46 08/15/17 16:46 Intake and Output: 08/16/17 08/16/17 06:59 18:59 Intake Total 0 Balance 0 - Medications Medications: Current Medications Alprazolam (Xanax) 0.25 mg PO BID PRN; Protocol PRN Reason: Anxiety Stop: 08/21/17 18:01 Last Admin: 08/14/17 21:54 Dose: 0.25 mg Doxycycline Hyclate (Doryx) 100 mg PO Q12 BREANA PRN Reason: Protocol Stop: 08/24/17 22:01 Last Admin: 08/15/17 22:45 Dose: 100 mg Heparin Sodium (Porcine) (Heparin) 5,000 units SC Q8 BREANA PRN Reason: Protocol Last Admin: 08/16/17 05:56 Dose: 5,000 units Sodium Chloride (Sodium Chloride 0.9%) 1,000 mls @ 160 mls/hr IV .Q6H15M [facility] Last Admin: 08/16/17 05:39 Dose: 160 mls/hr Piperacillin Sod/Tazobactam Sod (Zosyn 3.375 In Ns 100ml) 100 mls @ 200 mls/hr IVPB Q6 BREANA PRN Reason: Protocol Stop: 08/23/17 18:01 Last Admin: 08/16/17 05:39 Dose: 200 mls/hr Ibuprofen (Motrin Tab) 400 mg PO Q6H PRN PRN Reason: Fever >100.4 F Last Admin: 08/15/17 05:36 Dose: 400 mg Ondansetron HCl (Zofran Inj) 4 mg IVP Q4H PRN PRN Reason: Nausea/Vomiting Last Admin: 08/15/17 17:49 Dose: 4 mg Pantoprazole Sodium (Protonix Ec Tab) 40 mg PO 0600 BREANA Last Admin: 08/16/17 05:57 Dose: 40 mg - Labs Labs: 08/16/17 06:30 08/16/17 06:30 PT 11.6 SECONDS (9.4-12.5) 08/14/17 01:35 INR 1.06 (0.93-1.08) 08/14/17 01:35 APTT 26.9 Seconds (25.1-36.5) 08/14/17 01:35 - Constitutional Appears: Non-toxic, No Acute Distress - Head Exam Head Exam: ATRAUMATIC, NORMAL INSPECTION, NORMOCEPHALIC - Eye Exam Eye Exam: EOMI, Normal appearance, PERRL. absent: Conjunctival injection, Scleral icterus Pupil Exam: NORMAL ACCOMODATION - ENT Exam ENT Exam: Mucous Membranes Moist - Neck Exam Neck Exam: Full ROM, Normal Inspection - Respiratory Exam Respiratory Exam: Clear to Ausculation Bilateral, NORMAL BREATHING PATTERN. absent: Accessory Muscle Use, Rales, Rhonchi, Wheezes, Respiratory Distress - Cardiovascular Exam Cardiovascular Exam: REGULAR RHYTHM, RRR, +S1, +S2 - GI/Abdominal Exam GI & Abdominal Exam: Soft, Normal Bowel Sounds. absent: Firm, Guarding, Rigid, Tenderness - Extremities Exam Extremities Exam: Normal Capillary Refill, Normal Inspection. absent: Pedal Edema, Tenderness - Back Exam Back Exam: NORMAL INSPECTION. absent: CVA tenderness (L), CVA tenderness (R), rash noted - Neurological Exam Neurological Exam: Alert, Awake, CN II-XII Intact, Normal Gait, Oriented x3 - Psychiatric Exam Psychiatric exam: Normal Affect, Normal Mood - Skin Skin Exam: Dry, Intact, Normal Color, Warm Assessment and Plan - Assessment and Plan (Free Text) Assessment: 61 yo female PMHx vertigo presents with generalized weakness, nonbloody nonbilious emesis x 7, and dysuria/frequency x 3 weeks Plan: Sepsis - secondary to gram negative rods in urine and cystitis - Zosyn and Doxycycline - blood culture: prelim neg x 2 - CXR: NAD - NS @ 125cc/hr - Motrin prn for fever - Zofran prn for nausea - ID Dr. Marroquin Generalized weakness - improving - Likely 2/2 SIRS/Sepsis with associated vomiting and hypokalemia Hypokalemia - resolved - monitor BMP Nausea/Vomiting - diet changed to clear liquids - Continue PRN zofran GI Ppx: Protonix 40mg po qd DVT Ppx: Heparin 5000u sc q12 and SCDs Diet: CLD- ADAT Discussed with Dr. Merritt Cat PGY2 <Fara Bang - Last Filed: 08/17/17 15:58> Objective - Vital Signs/Intake and Output Vital Signs (last 24 hours): Temp Pulse Resp BP Pulse Ox 97.8 F 82 20 116/73 95 08/17/17 07:30 08/17/17 07:30 08/17/17 07:30 08/17/17 07:30 08/17/17 07:30 Intake and Output: 08/17/17 08/17/17 06:59 18:59 Intake Total 180 1400 Balance 180 1400 - Medications Medications: Current Medications Alprazolam (Xanax) 0.25 mg PO BID PRN; Protocol PRN Reason: Anxiety Stop: 08/21/17 18:01 Last Admin: 08/16/17 21:27 Dose: 0.25 mg Doxycycline Hyclate (Doryx) 100 mg PO Q12 BREANA PRN Reason: Protocol Stop: 08/24/17 22:01 Last Admin: 08/17/17 09:32 Dose: 100 mg Heparin Sodium (Porcine) (Heparin) 5,000 units SC Q12 BREANA PRN Reason: Protocol Last Admin: 08/17/17 09:31 Dose: 5,000 units Piperacillin Sod/Tazobactam Sod (Zosyn 3.375 In Ns 100ml) 100 mls @ 200 mls/hr IVPB Q6 BREANA PRN Reason: Protocol Stop: 08/23/17 18:01 Last Admin: 08/17/17 05:46 Dose: 200 mls/hr Sodium Chloride (Sodium Chloride 0.9%) 1,000 mls @ 125 mls/hr IV .Q8H BREANA Last Admin: 08/17/17 13:28 Dose: 125 mls/hr Ibuprofen (Motrin Tab) 400 mg PO Q6H PRN PRN Reason: Fever >100.4 F Last Admin: 08/17/17 01:36 Dose: 400 mg Ondansetron HCl (Zofran Inj) 4 mg IVP Q4H PRN PRN Reason: Nausea/Vomiting Last Admin: 08/16/17 17:16 Dose: 4 mg Pantoprazole Sodium (Protonix Ec Tab) 40 mg PO 0600 BREANA Last Admin: 08/17/17 05:49 Dose: 40 mg - Labs Labs: 08/17/17 06:40 08/17/17 06:40 PT 11.6 SECONDS (9.4-12.5) 08/14/17 01:35 INR 1.06 (0.93-1.08) 08/14/17 01:35 APTT 26.9 Seconds (25.1-36.5) 08/14/17 01:35 Attending/Attestation - Attestation I have personally seen and examined this patient.: Yes I have fully participated in the care of the patient.: Yes I have reviewed all pertinent clinical information, including history, physical exam and plan: Yes Notes (Text): I have seen and examined the patient at bedside. Agree with the above note with the following additions/ exceptions: Briefly this is 61 year old female with history of vertigo who presented with sepsis secondary to gram negative rods UTI on augmentin. Blood culture is negative. ID on board. Generalized weakness has improved. Hypokalemia has resolved. Upon discharge patient will follow up with Dr Powell. Dr Fara Bang
--- NOTE | 2017-08-16 23:00 | PN ---
DATE: 08/16/2017 SUBJECTIVE: The patient is seen early this morning in room #565, bed 2. PHYSICAL EXAMINATION: VITAL SIGNS: Temperature is 98, blood pressure is 119/70, respiratory rate of 16. HEENT: Unremarkable. NECK: Supple. LUNGS: Decreased breath sounds. HEART: Normal S1 and S2. ABDOMEN: Soft. LABORATORY DATA: Reveals white count of 6.4, hemoglobin of 9, and platelets of 143. BUN of 6 and creatinine of 0.7, procalcitonin 0.05. Urinalysis is noted. Serology is noted. Microbiology reveals the blood cultures are negative. Urine cultures are gram negative rods. The patient is on p.o. doxycycline and IV Zosyn. ASSESSMENT AND PLAN: This is a 61-year-old female with severe sepsis with gram negative benita as the source in the urine and cystitis, on Zosyn, awaiting for identification as a gram negative benita. The patient is also on p.o. doxycycline. We will follow with you. The patient was seen early this morning. Alexis Marroquin MD
[2017-08-17] MEDS: Piperacillin/Tazobact 3.375 gm 100 ML IVPB SCH (05:46)
[2017-08-17] MEDS: Sodium Chloride 0.9% 1,000 ML IV SCH ×2 (05:47→13:28)
[2017-08-17] MEDS: Pantoprazole 40 mg EC Tab PO SCH (05:49)
[2017-08-17 07:05] LABS: BASO # 0.01 K/mm3 (0.0-2.0); BASO % 0.3 % (0.0-3.0); EOS # 0.4 (0.0-0.7); EOS % 10.7 % (1.5-5.0); GRAN # 1.58 (1.4-6.5); GRAN % 43.4 % (50.0-68.0); HEMOGLOBIN 9.8 g/dL (12.0-16.0); LYMPH # 1.1 (1.2-3.4); LYMPH % 30.8 % (22.0-35.0); MEAN CELL VOLUME 87.8 fl (80.0-105.0); MEAN CORPUSCULAR HEMOGLOBIN 29.1 pg (25.0-35.0); MEAN CORPUSCULAR HGB CONC 33.1 g/dl (31.0-37.0); MEAN PLATELET VOLUME 9.8 fl (7.0-11.0); MONO # 0.5 (0.1-0.6); MONO % 14.8 % (1.0-6.0); RBC 3.37 10^6/uL (3.5-6.1); RED CELL DISTRIBUTION WIDTH 13.1 % (11.5-14.5); WHITE BLOOD COUNT 3.6 10^3/ul (4.5-11.0)
[2017-08-17 07:14] LABS: ALB/GLOB RATIO 1.3 (1.1-1.8); ALT/SGPT 39 U/L (7-56); AST/SGOT 18 U/L (14-36); BLOOD UREA NITROGEN 3 mg/dL (7-21); CALCIUM 8.5 mg/dL (8.4-10.5); GFR AFRICAN-AMERICAN > 60; GFR NON-AFRICAN AMERICAN > 60
[2017-08-17 08:11] VITALS: BP 116/73; PULSE 82; TEMP 97.8; O2SAT 95
[2017-08-17] MEDS ORDERED: Potassium Chloride 20 mEq ER Tab PO ONE (08:50)
--- NOTE | 2017-08-17 08:56 | CP.PCM.PN ---
Subjective - Date & Time of Evaluation Date of Evaluation: 08/17/17 Time of Evaluation: 07:00 - Subjective Subjective: Patient seen and examined at bedside in no acute distress. Patient states her nausea has improved since admission as well as her leg pain. Patient states her last bowel movement was overnight right before midnight. Denies dysuria with urination, denies abdominal pain, chest pain, shortness of breath, cough, fevers , chills. Objective - Vital Signs/Intake and Output Vital Signs (last 24 hours): Temp Pulse Resp BP Pulse Ox 97.8 F 82 20 116/73 95 08/17/17 07:30 08/17/17 07:30 08/17/17 07:30 08/17/17 07:30 08/17/17 07:30 Intake and Output: 08/17/17 08/17/17 06:59 18:59 Intake Total 180 Balance 180 - Medications Medications: Current Medications Alprazolam (Xanax) 0.25 mg PO BID PRN; Protocol PRN Reason: Anxiety Stop: 08/21/17 18:01 Last Admin: 08/16/17 21:27 Dose: 0.25 mg Doxycycline Hyclate (Doryx) 100 mg PO Q12 BREANA PRN Reason: Protocol Stop: 08/24/17 22:01 Last Admin: 08/16/17 21:29 Dose: 100 mg Heparin Sodium (Porcine) (Heparin) 5,000 units SC Q12 BREANA PRN Reason: Protocol Last Admin: 08/16/17 21:26 Dose: 5,000 units Piperacillin Sod/Tazobactam Sod (Zosyn 3.375 In Ns 100ml) 100 mls @ 200 mls/hr IVPB Q6 BREANA PRN Reason: Protocol Stop: 08/23/17 18:01 Last Admin: 08/17/17 05:46 Dose: 200 mls/hr Sodium Chloride (Sodium Chloride 0.9%) 1,000 mls @ 125 mls/hr IV .Q8H BREANA Last Admin: 08/17/17 05:47 Dose: 125 mls/hr Ibuprofen (Motrin Tab) 400 mg PO Q6H PRN PRN Reason: Fever >100.4 F Last Admin: 08/17/17 01:36 Dose: 400 mg Ondansetron HCl (Zofran Inj) 4 mg IVP Q4H PRN PRN Reason: Nausea/Vomiting Last Admin: 08/16/17 17:16 Dose: 4 mg Pantoprazole Sodium (Protonix Ec Tab) 40 mg PO 0600 BREANA Last Admin: 08/17/17 05:49 Dose: 40 mg - Labs Labs: 08/17/17 06:40 08/17/17 06:40 PT 11.6 SECONDS (9.4-12.5) 08/14/17 01:35 INR 1.06 (0.93-1.08) 08/14/17 01:35 APTT 26.9 Seconds (25.1-36.5) 08/14/17 01:35 - Constitutional Appears: Non-toxic, No Acute Distress - Head Exam Head Exam: ATRAUMATIC, NORMAL INSPECTION, NORMOCEPHALIC - Eye Exam Eye Exam: EOMI, Normal appearance - ENT Exam ENT Exam: Mucous Membranes Moist, Normal Exam - Neck Exam Neck Exam: Normal Inspection - Respiratory Exam Respiratory Exam: Clear to Ausculation Bilateral, NORMAL BREATHING PATTERN. absent: Wheezes - Cardiovascular Exam Cardiovascular Exam: REGULAR RHYTHM, +S1, +S2 - GI/Abdominal Exam GI & Abdominal Exam: Soft, Normal Bowel Sounds - Neurological Exam Neurological Exam: Alert, Awake, Oriented x3 - Psychiatric Exam Psychiatric exam: Normal Affect, Normal Mood - Skin Skin Exam: Intact, Normal Color, Warm Assessment and Plan - Assessment and Plan (Free Text) Assessment: 61 yo female PMHx vertigo presents with generalized weakness, nonbloody nonbilious emesis x 7, and dysuria/frequency x 3 weeks Plan: Sepsis - secondary to gram negative rods in urine and cystitis - Zosyn and Doxycycline - blood culture: prelim neg x 2 - CXR: no acute disease - NS @ 125cc/hr - Motrin prn for fever - Nausea has improved but will continue with zofran prn for nausea - ID Dr. Marroquin ; awaiting identification of gram negative benita before adjusting antibiotic regimen Generalized weakness - improving - Likely 2/2 SIRS/Sepsis with associated vomiting and hypokalemia Hypokalemia - Potassium 3.3; will repleye - monitor BMP Nausea/Vomiting - diet changed to clear liquids, will see if diet may be advanced - Continue PRN zofran GI Ppx: Protonix 40mg po qd DVT Ppx: Heparin 5000u sc q12 and SCDs Diet: CLD- ADAT Discussed with Dr. Merritt Joseph PGY1
--- NOTE | 2017-08-17 09:07 | CON ---
DATE: 08/14/2017 The patient seen in the Emergency Room. CHIEF COMPLAINT: Weakness times several days. HISTORY OF PRESENT ILLNESS: This is a 61-year-old female with past medical history significant for vertigo, hydrocephalus and herniated disk, admitted through the Emergency Room with nausea, vomiting and urinary discomfort. Infectious Disease consultation requested because of antibiotics. The patient did have a fever in the Emergency Room. She had been complaining of diarrhea, which is nonbloody and vomiting, who presents with generalized aches and pains and Dr. Del Rio's history and physical examination reveals the patient also in addition of vomiting and weakness, cramping pain lower legs and she denied any fevers and chills, but she was found to have a fever and she does have dysuria and frequency for several weeks and lightheadedness. PAST MEDICAL HISTORY: Significant for hydrocephalus, herniated disk and vertigo. PAST SURGICAL HISTORY: Significant for hysterectomy in 2003, jaw surgery and back surgery. ALLERGIES: THE PATIENT IS ALLERGIC TO OXYCODONE, CODEINE, AND ACETAMINOPHEN. MEDICATIONS AT HOME: Include the patient to be on Xanax, and Fioricet. PHYSICAL EXAMINATION GENERAL: The patient is in bed, no acute distress, nontoxic. VITAL SIGNS: Temperature is 101.9, respiratory rate of 23, heart rate of 100 and blood pressure is 82/47. HEENT: Unremarkable. NECK: Supple. LUNGS: Have decreased breath sounds. HEART: Normal S1 and S2. ABDOMEN: Soft and nontender. No organomegaly. No rebound. No guarding. No masses. LABORATORY DATA: Reveals a white count of 10,000, hemoglobin of 12, 86% granulocytosis. Coagulation is noted. Chemistry reveals the BUN of 12, creatinine of 0.7, recent potassium of 2.8. LFT's are normal. Urinalysis reveals 15 to 20 wbc's, moderate bacteria, influenza is negative. The patient had a CAT scan of the abdomen and pelvis, which is consistent with cystitis. Chest x-ray is reviewed. No report is available. The patient had an EKG, which showed 457 QTc. note is reviewed. ASSESSMENT AND PLAN: A 61-year-old female with vertigo and hydrocephalus and history of herniated disk presenting with a fever, history of frequency, positive urinalysis, hypotension, and responding to fluids. 1. Severe sepsis secondary to urine as a source and cystitis. The patient is on Zosyn and concerned about pneumonia though she has had minimal pulmonary symptoms and concerned about pneumonia with gastrointestinal symptoms. We will order doxycycline and urine for Legionella antigen with a QTc of 457. We will check on the blood cultures and urine cultures and follow closely with you. We will also order a human immunodeficiency virus test because of her age and urine Legionella. We will follow closely with you. Alexis Marroquin MD
--- NOTE | 2017-08-17 19:37 | PN ---
DATE: 08/17/2017 SUBJECTIVE: The patient is in bed, in no acute distress, nontoxic. PHYSICAL EXAMINATION VITAL SIGNS: Temperature is 98, blood pressure is 116/78 and respiratory rate of 18. HEENT: Unremarkable. NECK: Supple. LUNGS: Has a decreased breath sounds. HEART: Normal S1 and S2. ABDOMEN: Soft and nontender. LABORATORY DATA: Reviewed. ASSESSMENT AND PLAN: A 61-year-old female with severe sepsis, gram-negative rods in the urine and with cystitis, may switch to p.o. Augmentin to complete therapy. We will discontinue the doxycycline and Zosyn. We will start p.o. Augmentin 875 p.o. b.i.d. x4 days. Case discussed with nursing staff. Alexis Marroquin MD
[2017-08-17] MEDS ORDERED: Amoxicillin-Clav 875-125 mg Tab PO SCH (22:00)
--- NOTE | 2017-08-18 07:04 | CP.PCM.DIS ---
<Elder Joseph - Last Filed: 08/19/17 04:41> Provider - Provider Date of Admission: 08/14/17 06:37 Attending physician: Fara Bang MD Primary care physician: Rohit Quiroga MD Consults: ID: Dr. [email or web address] Time Spent in preparation of Discharge (in minutes): 45 Diagnosis - Discharge Diagnosis (1) UTI (urinary tract infection) Status: Acute Priority: Medium (2) Abdominal pain Status: Acute Priority: Medium Hospital Course - Lab Results Lab Results: Micro Results 08/16/17 10:00 Stool C. difficile Antigen & Toxin A,B (M - Final 08/14/17 11:00 Naris MRSA Culture (Admit) - Final MRSA NOT DETECTED Most Recent Lab Values WBC 3.6 10^3/ul (4.5-11.0) L D 08/17/17 06:40 RBC 3.37 10^6/uL (3.5-6.1) L 08/17/17 06:40 Hgb 9.8 g/dL (12.0-16.0) L 08/17/17 06:40 Hct 29.6 % (36.0-48.0) L 08/17/17 06:40 MCV 87.8 fl (80.0-105.0) 08/17/17 06:40 MCH 29.1 pg (25.0-35.0) 08/17/17 06:40 MCHC 33.1 g/dl (31.0-37.0) 08/17/17 06:40 RDW 13.1 % (11.5-14.5) 08/17/17 06:40 Plt Count 156 10^3/uL (120.0-450.0) 08/17/17 06:40 MPV 9.8 fl (7.0-11.0) 08/17/17 06:40 Gran % 43.4 % (50.0-68.0) L 08/17/17 06:40 Lymph % (Auto) 30.8 % (22.0-35.0) 08/17/17 06:40 Dare % (Auto) 14.8 % (1.0-6.0) H 08/17/17 06:40 Eos % (Auto) 10.7 % (1.5-5.0) H 08/17/17 06:40 Baso % (Auto) 0.3 % (0.0-3.0) 08/17/17 06:40 Gran # 1.58 (1.4-6.5) 08/17/17 06:40 Lymph # 1.1 (1.2-3.4) L 08/17/17 06:40 Dare # 0.5 (0.1-0.6) 08/17/17 06:40 Eos # 0.4 (0.0-0.7) 08/17/17 06:40 Baso # 0.01 K/mm3 (0.0-2.0) 08/17/17 06:40 PT 11.6 SECONDS (9.4-12.5) 08/14/17 01:35 INR 1.06 (0.93-1.08) 08/14/17 01:35 APTT 26.9 Seconds (25.1-36.5) 08/14/17 01:35 pO2 178 mm/Hg (30-55) H 08/14/17 08:25 VBG pH 7.39 (7.32-7.43) 08/14/17 08:25 VBG pCO2 35.0 (40-60) L 08/14/17 08:25 VBG HCO3 21.2 mmol/l (21-28) 08/14/17 08:25 VBG Total CO2 22.3 mmol.L (22-28) 08/14/17 08:25 VBG O2 Sat (Calc) 99.4 % (40-65) H 08/14/17 08:25 VBG Base Excess -3.1 mmol/L (0.0-2.0) L 08/14/17 08:25 VBG Potassium 3.6 mmol/L (3.6-5.2) 08/14/17 08:25 Sodium 141.0 mmol/L (132-148) 08/14/17 08:25 Chloride 115.0 mmol/L (98-107) H 08/14/17 08:25 Glucose 106 mg/dl (65-105) H 08/14/17 08:25 Lactate 1.4 mmol/L (0.7-2.1) 08/14/17 08:25 FiO2 21.0 % 08/14/17 08:25 Sodium 141 mmol/L (132-148) 08/17/17 06:40 Potassium 3.3 mmol/L (3.6-5.0) L 08/17/17 06:40 Chloride 112 mmol/L (98-107) H 08/17/17 06:40 Carbon Dioxide 21 mmol/L (21-33) 08/17/17 06:40 Anion Gap 12 (10-20) 08/17/17 06:40 BUN 3 mg/dL (7-21) L 08/17/17 06:40 Creatinine 0.7 mg/dl (0.7-1.2) 08/17/17 06:40 Est GFR ( Amer) > 60 08/17/17 06:40 Est GFR (Non-Af Amer) > 60 08/17/17 06:40 Random Glucose 95 mg/dL (70-110) 08/17/17 06:40 Calcium 8.5 mg/dL (8.4-10.5) 08/17/17 06:40 Phosphorus 2.8 mg/dL (2.5-4.5) 08/14/17 08:25 Magnesium 1.7 mg/dL (1.7-2.2) 08/14/17 08:25 Total Bilirubin 0.4 mg/dL (0.2-1.3) 08/17/17 06:40 AST 18 U/L (14-36) 08/17/17 06:40 ALT 39 U/L (7-56) 08/17/17 06:40 Alkaline Phosphatase 76 U/L (38-126) 08/17/17 06:40 Troponin I < 0.01 ng/mL 08/14/17 01:35 Total Protein 5.4 g/dL (5.8-8.3) L 08/17/17 06:40 Albumin 3.0 g/dL (3.0-4.8) 08/17/17 06:40 Globulin 2.4 gm/dL 08/17/17 06:40 Albumin/Globulin Ratio 1.3 (1.1-1.8) 08/17/17 06:40 Triglycerides 101 mg/dL (35-160) 08/15/17 05:30 Cholesterol 93 mg/dL (130-200) L 08/15/17 05:30 LDL Cholesterol Direct 47 mg/dL (0-129) 08/15/17 05:30 HDL Cholesterol 33 mg/dL (29-60) 08/15/17 05:30 Procalcitonin < 0.05 NG/ML (0.19-0.49) L 08/14/17 08:40 TSH 3rd Generation 0.91 mIU/mL (0.46-4.68) 08/15/17 05:30 Venous Blood Potassium 3.6 mmol/L (3.6-5.2) 08/14/17 08:25 Urine Color Yellow (YELLOW) 08/14/17 06:15 Urine Appearance Clear (CLEAR) 08/14/17 06:15 Urine pH 6.0 (4.7-8.0) 08/14/17 06:15 Ur Specific [place] 1.020 (1.005-1.035) 08/14/17 06:15 Urine Protein Negative mg/dL (<30 mg/dL) 08/14/17 06:15 Urine Glucose (UA) Negative mg/dL (NEGATIVE) 08/14/17 06:15 Urine Ketones Negative mg/dL (NEGATIVE) 08/14/17 06:15 Urine Blood Trace-intact (NEGATIVE) H 08/14/17 06:15 Urine Nitrate Negative (NEGATIVE) 08/14/17 06:15 Urine Bilirubin Negative (NEGATIVE) 08/14/17 06:15 Urine Urobilinogen 0.2 E.U./dL (<1 E.U./dL) 08/14/17 06:15 Ur Leukocyte Esterase Small Gayle/uL (NEGATIVE) H 08/14/17 06:15 Urine RBC 0 - 2 /hpf (0-2) 08/14/17 06:15 Urine WBC 15 - 20 /hpf (0-6) 08/14/17 06:15 Ur Epithelial Cells 1 - 3 /hpf (0-5) 08/14/17 06:15 Urine Bacteria Mod (NEG) 08/14/17 06:15 HIV 1&2 Ag/Ab, 4th Gen Nonreactive (Nonreactive) 08/14/17 13:00 Influenza Typ A,B (EIA) Negative for flu a/b (NEGATIVE) 08/14/17 10:18 Ur L.pneumophila Ag Negative (NEGATIVE) 08/14/17 17:00 - Hospital Course Hospital Course: Patient is 61 year old female with a past medical of vertigo who presented with complaints of generalized weakness and vomiting since midnight. She reported that at midnight, she had sharp cramping pain in lateral aspects of both lower legs, then got nauseous and vomited 7 times, nonbloody, nonbilious. When patient was admitted, she was found to be febrile, hypotensive, and had an elevated white countl code sepsis was called. Imaging was done to find a source of infection, CT abdomen revealed cystitis which was evidenced on urinalysis which showed elevated wbc and leukocyte esterase. Patient was transferred to ICU for further monitoring, once stable patient was transferred to med/surg. During course of hospital stay patient was placed initially on zosyn. Urine cultures returned positive from gram negative benita. Due to resolving of patient' s symptoms patient was discharged home with a dose of augmentin. Patient was advised to follow up with her PMD and return to the ED if her symptoms returned or worsened. During course of stay communication was continued between physicians and family members. Patient and family were both in agreement with plan. Discharge Exam - Head Exam Head Exam: ATRAUMATIC, NORMAL INSPECTION, NORMOCEPHALIC - Eye Exam Eye Exam: EOMI, Normal appearance - ENT Exam ENT Exam: Mucous Membranes Moist - Neck Exam Neck exam: Normal Inspection - Respiratory Exam Respiratory Exam: NORMAL BREATHING PATTERN, UNREMARKABLE - Cardiovascular Exam Cardiovascular Exam: REGULAR RHYTHM, +S1, +S2 - GI/Abdominal Exam GI & Abdominal Exam: Normal Bowel Sounds, Unremarkable - Neurological Exam Neurological exam: Alert, CN II-XII Intact, Oriented x3 - Psychiatric Exam Psychiatric exam: Normal Affect, Normal Mood - Skin Skin Exam: Intact, Normal Color, Warm Discharge Plan - Discharge Medications Prescriptions: Amoxicillin/Clavulanate [Augmentin 875 MG-125 MG] 1 tab PO DAILY 6 Days #6 tab - Follow Up Plan Condition: STABLE Disposition: HOME/ ROUTINE Instructions: Urinary Tract Infection in Women (GEN) Additional Instructions: 1. Please follow up with or PMD Dr. Quiroga within 3-5 days of being discharged. 2. Fill and take medication as prescribed. 3. Please do not hesitate to return to [facility] (formerly [facility]) if symptoms worsen or return. Referrals: Rohit Quiroga MD [Primary Care Provider] - <Fara Bang - Last Filed: 08/19/17 12:14> Provider - Provider Date of Admission: 08/14/17 06:37 Attending physician: Fara Bang MD Primary care physician: Rohit Quiroga MD Hospital Course - Lab Results Lab Results: Micro Results 08/16/17 10:00 Stool Stool Culture - Final NO SALMONELLA, SHIGELLA OR CAMPYLOBACTER ISOLATED. 08/16/17 10:00 Stool C. difficile Antigen & Toxin A,B (M - Final 08/14/17 11:00 Naris MRSA Culture (Admit) - Final MRSA NOT DETECTED Most Recent Lab Values WBC 3.6 10^3/ul (4.5-11.0) L D 08/17/17 06:40 RBC 3.37 10^6/uL (3.5-6.1) L 08/17/17 06:40 Hgb 9.8 g/dL (12.0-16.0) L 08/17/17 06:40 Hct 29.6 % (36.0-48.0) L 08/17/17 06:40 MCV 87.8 fl (80.0-105.0) 08/17/17 06:40 MCH 29.1 pg (25.0-35.0) 08/17/17 06:40 MCHC 33.1 g/dl (31.0-37.0) 08/17/17 06:40 RDW 13.1 % (11.5-14.5) 08/17/17 06:40 Plt Count 156 10^3/uL (120.0-450.0) 08/17/17 06:40 MPV 9.8 fl (7.0-11.0) 08/17/17 06:40 Gran % 43.4 % (50.0-68.0) L 08/17/17 06:40 Lymph % (Auto) 30.8 % (22.0-35.0) 08/17/17 06:40 Dare % (Auto) 14.8 % (1.0-6.0) H 08/17/17 06:40 Eos % (Auto) 10.7 % (1.5-5.0) H 08/17/17 06:40 Baso % (Auto) 0.3 % (0.0-3.0) 08/17/17 06:40 Gran # 1.58 (1.4-6.5) 08/17/17 06:40 Lymph # 1.1 (1.2-3.4) L 08/17/17 06:40 Dare # 0.5 (0.1-0.6) 08/17/17 06:40 Eos # 0.4 (0.0-0.7) 08/17/17 06:40 Baso # 0.01 K/mm3 (0.0-2.0) 08/17/17 06:40 PT 11.6 SECONDS (9.4-12.5) 08/14/17 01:35 INR 1.06 (0.93-1.08) 08/14/17 01:35 APTT 26.9 Seconds (25.1-36.5) 08/14/17 01:35 pO2 178 mm/Hg (30-55) H 08/14/17 08:25 VBG pH 7.39 (7.32-7.43) 08/14/17 08:25 VBG pCO2 35.0 (40-60) L 08/14/17 08:25 VBG HCO3 21.2 mmol/l (21-28) 08/14/17 08:25 VBG Total CO2 22.3 mmol.L (22-28) 08/14/17 08:25 VBG O2 Sat (Calc) 99.4 % (40-65) H 08/14/17 08:25 VBG Base Excess -3.1 mmol/L (0.0-2.0) L 08/14/17 08:25 VBG Potassium 3.6 mmol/L (3.6-5.2) 08/14/17 08:25 Sodium 141.0 mmol/L (132-148) 08/14/17 08:25 Chloride 115.0 mmol/L (98-107) H 08/14/17 08:25 Glucose 106 mg/dl (65-105) H 08/14/17 08:25 Lactate 1.4 mmol/L (0.7-2.1) 08/14/17 08:25 FiO2 21.0 % 08/14/17 08:25 Sodium 141 mmol/L (132-148) 08/17/17 06:40 Potassium 3.3 mmol/L (3.6-5.0) L 08/17/17 06:40 Chloride 112 mmol/L (98-107) H 08/17/17 06:40 Carbon Dioxide 21 mmol/L (21-33) 08/17/17 06:40 Anion Gap 12 (10-20) 08/17/17 06:40 BUN 3 mg/dL (7-21) L 08/17/17 06:40 Creatinine 0.7 mg/dl (0.7-1.2) 08/17/17 06:40 Est GFR ( Amer) > 60 08/17/17 06:40 Est GFR (Non-Af Amer) > 60 08/17/17 06:40 Random Glucose 95 mg/dL (70-110) 08/17/17 06:40 Calcium 8.5 mg/dL (8.4-10.5) 08/17/17 06:40 Phosphorus 2.8 mg/dL (2.5-4.5) 08/14/17 08:25 Magnesium 1.7 mg/dL (1.7-2.2) 08/14/17 08:25 Total Bilirubin 0.4 mg/dL (0.2-1.3) 08/17/17 06:40 AST 18 U/L (14-36) 08/17/17 06:40 ALT 39 U/L (7-56) 08/17/17 06:40 Alkaline Phosphatase 76 U/L (38-126) 08/17/17 06:40 Troponin I < 0.01 ng/mL 08/14/17 01:35 Total Protein 5.4 g/dL (5.8-8.3) L 08/17/17 06:40 Albumin 3.0 g/dL (3.0-4.8) 08/17/17 06:40 Globulin 2.4 gm/dL 08/17/17 06:40 Albumin/Globulin Ratio 1.3 (1.1-1.8) 08/17/17 06:40 Triglycerides 101 mg/dL (35-160) 08/15/17 05:30 Cholesterol 93 mg/dL (130-200) L 08/15/17 05:30 LDL Cholesterol Direct 47 mg/dL (0-129) 08/15/17 05:30 HDL Cholesterol 33 mg/dL (29-60) 08/15/17 05:30 Procalcitonin < 0.05 NG/ML (0.19-0.49) L 08/14/17 08:40 TSH 3rd Generation 0.91 mIU/mL (0.46-4.68) 08/15/17 05:30 Venous Blood Potassium 3.6 mmol/L (3.6-5.2) 08/14/17 08:25 Urine Color Yellow (YELLOW) 08/14/17 06:15 Urine Appearance Clear (CLEAR) 08/14/17 06:15 Urine pH 6.0 (4.7-8.0) 08/14/17 06:15 Ur Specific [place] 1.020 (1.005-1.035) 08/14/17 06:15 Urine Protein Negative mg/dL (<30 mg/dL) 08/14/17 06:15 Urine Glucose (UA) Negative mg/dL (NEGATIVE) 08/14/17 06:15 Urine Ketones Negative mg/dL (NEGATIVE) 08/14/17 06:15 Urine Blood Trace-intact (NEGATIVE) H 08/14/17 06:15 Urine Nitrate Negative (NEGATIVE) 08/14/17 06:15 Urine Bilirubin Negative (NEGATIVE) 08/14/17 06:15 Urine Urobilinogen 0.2 E.U./dL (<1 E.U./dL) 08/14/17 06:15 Ur Leukocyte Esterase Small Gayle/uL (NEGATIVE) H 08/14/17 06:15 Urine RBC 0 - 2 /hpf (0-2) 08/14/17 06:15 Urine WBC 15 - 20 /hpf (0-6) 08/14/17 06:15 Ur Epithelial Cells 1 - 3 /hpf (0-5) 08/14/17 06:15 Urine Bacteria Mod (NEG) 08/14/17 06:15 HIV 1&2 Ag/Ab, 4th Gen Nonreactive (Nonreactive) 08/14/17 13:00 Influenza Typ A,B (EIA) Negative for flu a/b (NEGATIVE) 08/14/17 10:18 Ur L.pneumophila Ag Negative (NEGATIVE) 08/14/17 17:00 Attending/Attestation - Attestation I have personally seen and examined this patient.: Yes I have fully participated in the care of the patient.: Yes I have reviewed all pertinent clinical information, including history, physical exam and plan: Yes Notes (Text): I have seen and examined the patient at bedside. Agree with the above note with the following additions/ exceptions: Briefly this is 61 year old female with history of vertigo who presented with sepsis secondary to gram negative rods UTI on augmentin. Blood culture is negative. ID on board. Generalized weakness has improved. Hypokalemia has resolved. Physical therapy has cleared the patient to go home. Upon discharge patient will follow up with Dr Powell. Dr Fara Bang
== END 2017-08-17 17:26 | disposition home or self-care (01) | DRG 872 ==
LOC: ED 00:47 → ERH 06:37 → ICU 10:53 → 5RNO 08-15 11:37
PROVIDERS: ADMIT Internal Medicine; ATTEND Hospitalist
DX: A41.9 Sepsis, unspecified organism (principal); N30.90 Cystitis, unspecified without hematuria; G91.9 Hydrocephalus, unspecified; E87.6 Hypokalemia; K57.30 Diverticulosis of large intestine without perforation or abscess without bleeding; Z90.710 Acquired absence of both cervix and uterus; Z87.440 Personal history of urinary (tract) infections

== ENCOUNTER 2017-10-30 05:03 | Inpatient (IN) | payer MEDICARE, OTHER ==
[2017-10-30] MEDS ORDERED: Sodium Chloride 0.9% 1,000 ML IV STA ×2 (05:30→09:08)
[2017-10-30 05:52] LABS: BASO # 0.01 K/mm3 (0.0-2.0); BASO % 0.2 % (0.0-3.0); EOS # 0.1 (0.0-0.7); EOS % 1.3 % (1.5-5.0); GRAN # 3.81 (1.4-6.5); GRAN % 60.2 % (50.0-68.0); HEMOGLOBIN 13.2 g/dL (12.0-16.0); LYMPH # 1.9 (1.2-3.4); LYMPH % 30.1 % (22.0-35.0); MEAN CELL VOLUME 88.8 fl (80.0-105.0); MEAN CORPUSCULAR HEMOGLOBIN 29.6 pg (25.0-35.0); MEAN CORPUSCULAR HGB CONC 33.3 g/dl (31.0-37.0); MEAN PLATELET VOLUME 9.5 fl (7.0-11.0); MONO # 0.5 (0.1-0.6); MONO % 8.2 % (1.0-6.0); RBC 4.46 10^6/uL (3.5-6.1); RED CELL DISTRIBUTION WIDTH 13.2 % (11.5-14.5); WHITE BLOOD COUNT 6.3 10^3/ul (4.5-11.0)
--- NOTE | 2017-10-30 05:59 | ED PDOC ---
Arrival/HPI - General Chief Complaint: GI Problem Time Seen by Provider: 10/30/17 05:21 Historian: Patient, Family - History of Present Illness Narrative History of Present Illness (Text): 10/30/17 05:57 [id number] [place] [facility] w/ dizziness, nausea, non-bloody, non-bilious vomiting for one day. Patient had similar symptoms in the past in July of 2017. Took meclizine which did not help. Denies eating anything out of the ordinary, ETOH use. Denies: abdominal pain, fevers, chills, chest pain, diaphoresis, numbness/ tingling in extremities PMH: Vertigo PSH: Back surgery, Jaw surgery, hysterectomy ALL: Codeine, Oxycodone SocialHx: Denies ETOH, tobacco, recreational drug use; Lives in [facility], visiting family in [place] Past Medical History - Infectious Disease Hx of Infectious Diseases: None - Tetanus Immunization Tetanus Immunization: Unknown - Past Medical History Past Medical History: No Previous - Cardiac Hx Cardiac Disorders: No - Pulmonary Hx Respiratory Disorders: No - Neurological Hx Neurological Disorder: Yes Hx Dizziness: Yes (VERTIGO) Other/Comment: Hydrocephalus - HEENT Hx HEENT Disorder: No - Renal Hx Renal Disorder: Yes Hx Pyelonephritis: Yes - Endocrine/Metabolic Hx Endocrine Disorders: No - Hematological/Oncological Hx Blood Disorders: No - Integumentary Hx Dermatological Disorder: No - Musculoskeletal/Rheumatological Hx Musculoskeletal Disorders: Yes (HERNIATED DISC) Hx Falls: Yes Other/Comment: LUMBAR RADICULOPATHY - Gastrointestinal Hx Gastrointestinal Disorders: Yes (DIVERTICULOSIS,GASTRITIS) - Genitourinary/Gynecological Hx Genitourinary Disorders: Yes Hx Urinary Tract Infection: Yes - Psychiatric Hx Anxiety: Yes Hx Emotional Abuse: No Hx Physical Abuse: No Hx Substance Use: No - Past Surgical History Past Surgical History: No Previous - Surgical History Hx Hysterectomy: Yes (2003) Other/Comment: Jaw surgery,BACK SX - Anesthesia Hx Anesthesia: Yes Hx Anesthesia Reactions: Yes (NAUSEA) Hx Malignant Hyperthermia: No - Suicidal Assessment Feels Threatened In Home Enviroment: No Family/Social History Family/Social History: Other (non-contributory) Smoking Status: Never Smoked Hx Alcohol Use: No Hx Substance Use: No Hx Substance Use Treatment: No Allergies/Home Meds Allergies/Adverse Reactions: Allergies codeine Adverse Reaction (Intermediate, Verified 10/30/17 05:33) IRRITATES STOMACH/ VOMITING oxycodone HCl [From Percocet] Adverse Reaction (Intermediate, Verified 10/30/17 05:33) IRRITATES STOMACH/ VOMITING Home Medications: Home Meds Medication Instructions Recorded Confirmed Alprazolam [Xanax] 0.25 mg PO PRN PRN 04/06/12 08/14/17 Acetaminophen/Butalbital/Caf 1 tab PO BID 01/08/17 08/14/17 [Fioricet] Review of Systems - Review of Systems Constitutional: Fatigue. absent: Fevers, Night Sweats Eyes: absent: Vision Changes ENT: absent: Hearing Changes, Tinnitus, TMJ Pain Respiratory: absent: SOB, Cough, Sputum Cardiovascular: absent: Chest Pain, Palpitations Gastrointestinal: Nausea, Vomiting. absent: Abdominal Pain, Constipation, Diarrhea Genitourinary Female: absent: Dysuria Musculoskeletal: absent: Arthralgias Skin: absent: Rash, Pruritis Neurological: absent: Headache, Dizziness Physical Exam Vital Signs Reviewed: Yes Vital Signs Temp Pulse Resp BP Pulse Ox 10/30/17 05:27 97.4 F L 88 18 137/84 97 Temperature: Afebrile Blood Pressure: Normal Pulse: Regular Respiratory Rate: Normal Appearance: Positive for: Non-Toxic, Uncomfortable Pain Distress: None Mental Status: Positive for: Alert and Oriented X 3 - Systems Exam Head: Present: Atraumatic, Normocephalic Pupils: Present: PERRL Conjunctiva: Present: Normal Mouth: Present: Moist Mucous Membranes Respiratory/Chest: Present: Clear to Auscultation, Good Air Exchange. No: Respiratory Distress, Accessory Muscle Use Cardiovascular: Present: Regular Rate and Rhythm, Normal S1, S2 Abdomen: Present: Peritoneal Signs. No: Tenderness, Distention Upper Extremity: Present: Normal Inspection Lower Extremity: Present: Normal Inspection Neurological: Present: GCS=15, Speech Normal Psychiatric: Present: Alert, Oriented x 3 Medical Decision Making ED Course and Treatment: 10/30/17 05:20 - Zofran 8mg - Pepcid - IVF - CBC/CMP/Lipase - serial exam - f/u labs and Dispo 10/30/17 06:21 Nausea slightly better still feels dizzy able to converse will prescribe meclizine and Reglan - Lab Interpretations Lab Results: 10/30/17 05:42 10/30/17 05:42 Lab Results 10/30/17 05:42: Sodium 141, Potassium 3.9, Chloride 106, Carbon Dioxide 25, Anion Gap 14, BUN 15, Creatinine 0.5 L, Est GFR ( Amer) > 60, Est GFR ( Non-Af Amer) > 60, Random Glucose 126 H, Calcium 9.8, Total Bilirubin 0.6, AST 19, ALT 24, Alkaline Phosphatase 111, Total Protein 7.1, Albumin 4.2, Globulin 2.9, Albumin/Globulin Ratio 1.5, Lipase 40 10/30/17 05:42: WBC 6.3 D, RBC 4.46, Hgb 13.2 D, Hct 39.6, MCV 88.8, MCH 29.6 , MCHC 33.3, RDW 13.2, Plt Count 235, MPV 9.5, Gran % 60.2, Lymph % (Auto) 30.1 , Power % (Auto) 8.2 H, Eos % (Auto) 1.3 L, Baso % (Auto) 0.2, Gran # 3.81, Lymph # (Auto) 1.9, Power # (Auto) 0.5, Eos # (Auto) 0.1, Baso # (Auto) 0.01 - EKG Interpretation EKG Interpretation (Text): 10/30/17 06:21 NSR Normal ECG Interpreted by ED Physician: Yes Type: 12 lead EKG Comparison: Similar to previous EKG - Medication Orders Current Medication Orders: Discontinued Medications Famotidine (Pepcid) 20 mg IVP STAT STA Stop: 10/30/17 06:00 Last Admin: 10/30/17 06:37 Dose: 20 mg Sodium Chloride (Sodium Chloride 0.9%) 1,000 mls @ 999 mls/hr IV .Q1H1M STA Stop: 10/30/17 06:30 Last Admin: 10/30/17 05:47 Dose: 999 mls/hr eMAR Start Stop Document 10/30/17 05:47 RD (Rec: 10/30/17 05:47 RD [id number]) Intravenous Solution Start Date 10/30/17 Start Time 05:47 End Date 10/30/17 End time 06:47 Total Infusion Time 60 Ondansetron HCl (Zofran Inj) 4 mg IVP STAT STA Stop: 10/30/17 05:31 Last Admin: 10/30/17 05:47 Dose: 4 mg IVP Administration Document 10/30/17 05:47 RD (Rec: 10/30/17 05:47 RD [id number]) Charges for Administration # of IVP Administrations 1 Ondansetron HCl (Zofran Inj) 4 mg IVP STAT STA Stop: 10/30/17 06:00 Last Admin: 10/30/17 06:35 Dose: 4 mg - PA / MOBILE PET GROOMER / Resident Statement /DO has reviewed & agrees with the documentation as recorded. / has examined the patient and agrees with the treatment plan. Disposition/Present on Arrival - Present on Arrival Any Indicators Present on Arrival: No History of DVT/PE: No History of Uncontrolled Diabetes: No Urinary Catheter: No History of Decub. Ulcer: No History Surgical Site Infection Following: None - Disposition Have Diagnosis and Disposition been Completed?: Yes Diagnosis: Vertigo Disposition Time: 06:38 Patient Plan: Discharge Patient Problems: Current Active Problems Problem Status Onset Vertigo Acute Condition: GOOD Discharge Instructions (ExitCare): Vertigo (a Type of Dizziness) (DC) Additional Instructions: Thank you for letting us take care of you today. You were treated for Vertigo. The emergency medical care you received today was directed at your acute symptoms. If you were prescribed any medication, please fill it and take as directed. It may take several days for your symptoms to resolve. Return to the Emergency Department if your symptoms worsen, do not improve, or if you have any other problems. Please contact your doctor or call one of the physicians/clinics you have been referred to that are listed on the Patient Visit Information form that is included in your discharge packet. Bring any paperwork you were given at discharge with you along with any medications you are taking to your follow up visit. Our treatment cannot replace ongoing medical care by a primary care provider (PCP) outside of the emergency department. Thank you for allowing the [facility] team to be part of your care today. Referrals: Rohit Quiroga MD [Primary Care Provider] - Follow up with primary Forms: [employer] ([place]rian)
[2017-10-30 06:01] LABS: ALB/GLOB RATIO 1.5 (1.1-1.8); ALBUMIN 4.2 g/dL (3.0-4.8); ALT/SGPT 24 U/L (7-56); AST/SGOT 19 U/L (14-36); BLOOD UREA NITROGEN 15 mg/dL (7-21); CALCIUM 9.8 mg/dL (8.4-10.5); GFR AFRICAN-AMERICAN > 60; GFR NON-AFRICAN AMERICAN > 60; LIPASE 40 U/L (23-300)
--- NOTE | 2017-10-30 09:24 | CP.PCM.HP ---
<RevaElissa - Last Filed: 10/30/17 10:27> History of Present Illness - History of Present Illness History of Present Illness: H&P for HospitalistVandana PGY2 This is a 62yo female with past medical history of anxiety, vertigo and mild cognitive impairment who came to ED for dizziness with nausea and vomiting x 1 day. She reports that at 4am she woke up feeling dizzy with nausea and vomiting. She described the dizziness as the room spinning and the vomiting as non-bloody/non-bilious. She said she ate [employer] last night and also had 3 episodes of non-bloody diarrhea. Patient states she lives in [place] and is visiting her brother in [place] this weekend. She denies shortness of breath, chest pain , numbness/tingling, vision changes, dysuria, hematuria, fever/chills or changes in hearing. In the ED, patient was found to be in A.fib with RVR. She was also noted to be hypotensive, but fluids responsive. Upon examination, patient reports her appetite has improved and would like to try eating. Past medical history: Vertigo and anxiety Past surgical history: Hysterectomy, back surgery, jaw surgery Home meds: Xanax 0.25 prn, Meclizine prn Allergies: Codeine and Oxycodone (both cause GI upset) Social history: Denies tobacco, EtOH or drug use. Lives in [place], [place] with brother. She is unable to drive but is mostly independent in ADLs Present on Admission - Present on Admission Any Indicators Present on Admission: No Review of Systems - Review of Systems Review of Systems: 12 Point ROS as per HPI Past Patient History - Infectious Disease Hx of Infectious Diseases: None - Tetanus Immunizations Tetanus Immunization: Unknown - Past Social History Smoking Status: Never Smoked Alcohol: None Drugs: Denies Home Situation {Lives}: With Family - CARDIAC Hx Cardiac Disorders: No - PULMONARY Hx Respiratory Disorders: No - NEUROLOGICAL Hx Neurological Disorder: Yes Hx Dizziness: Yes (VERTIGO) Other/Comment: Hydrocephalus - HEENT Hx HEENT Problems: No - RENAL Hx Chronic Kidney Disease: Yes Hx Pyelonephritis: Yes - ENDOCRINE/METABOLIC Hx Endocrine Disorders: No - HEMATOLOGICAL/ONCOLOGICAL Hx Blood Disorders: No - INTEGUMENTARY Hx Dermatological Problems: No - MUSCULOSKELETAL/RHEUMATOLOGICAL Hx Musculoskeletal Disorders: Yes (HERNIATED DISC) Hx Falls: Yes Other/Comment: LUMBAR RADICULOPATHY - GASTROINTESTINAL Hx Gastrointestinal Disorders: Yes (DIVERTICULOSIS,GASTRITIS) - GENITOURINARY/GYNECOLOGICAL Hx Genitourinary Disorders: Yes Hx Urinary Tract Infection: Yes - PSYCHIATRIC Hx Anxiety: Yes Hx Emotional Abuse: No Hx Physical Abuse: No Hx Substance Use: No - SURGICAL HISTORY Hx Hysterectomy: Yes (2003) Other/Comment: Jaw surgery,BACK SX - ANESTHESIA Hx Anesthesia: Yes Hx Anesthesia Reactions: Yes (NAUSEA) Hx Malignant Hyperthermia: No Meds Allergies/Adverse Reactions: Allergies Allergy/AdvReac Type Severity Reaction Status Date / Time codeine AdvReac Intermediate IRRITATES Verified 10/30/17 05:33 STOMACH/ VOMITING oxycodone HCl [From Percocet] AdvReac Intermediate IRRITATES Verified 10/30/17 05:33 STOMACH/ VOMITING Physical Exam - Constitutional Appears: No Acute Distress - Head Exam Head Exam: ATRAUMATIC, NORMAL INSPECTION, NORMOCEPHALIC - Eye Exam Eye Exam: EOMI, Normal appearance Pupil Exam: NORMAL ACCOMODATION, PERRL - ENT Exam ENT Exam: Mucous Membranes Moist - Respiratory Exam Respiratory Exam: Clear to Auscultation Bilateral, NORMAL BREATHING PATTERN. absent: Rales, Rhonchi, Wheezes - Cardiovascular Exam Cardiovascular Exam: Tachycardia, Irregular Rhythm, +S1, +S2. absent: Gallop, Rubs, Systolic Murmur - GI/Abdominal Exam GI & Abdominal Exam: Normal Bowel Sounds, Soft. absent: Mass, Rebound, Rigid, Tenderness - Extremities Exam Extremities exam: Positive for: normal inspection. Negative for: calf tenderness, pedal edema - Neurological Exam Neurological exam: Alert, CN II-XII Intact, Oriented x3 - Psychiatric Exam Psychiatric exam: Normal Affect, Normal Mood - Skin Skin Exam: Intact, Warm Results - Vital Signs Recent Vital Signs: Last Vital Signs Temp 97.4 F L 10/30/17 05:27 Pulse 140 H 10/30/17 09:13 Resp 18 10/30/17 09:13 BP 96/51 L 10/30/17 09:13 Pulse Ox 96 10/30/17 09:13 - Labs Result Diagrams: 10/30/17 05:42 10/30/17 05:42 Labs: Laboratory Results - last 24 hr 10/30/17 10/30/17 05:42 05:42 WBC 6.3 D RBC 4.46 Hgb 13.2 D Hct 39.6 MCV 88.8 MCH 29.6 MCHC 33.3 RDW 13.2 Plt Count 235 MPV 9.5 Gran % 60.2 Lymph % (Auto) 30.1 [place] % (Auto) 8.2 H Eos % (Auto) 1.3 L Baso % (Auto) 0.2 Gran # 3.81 Lymph # (Auto) 1.9 [place] # (Auto) 0.5 Eos # (Auto) 0.1 Baso # (Auto) 0.01 Sodium 141 Potassium 3.9 Chloride 106 Carbon Dioxide 25 Anion Gap 14 BUN 15 Creatinine 0.5 L Est GFR ( Amer) > 60 Est GFR (Non-Af Amer) > 60 Random Glucose 126 H Calcium 9.8 Total Bilirubin 0.6 AST 19 ALT 24 Alkaline Phosphatase 111 Total Protein 7.1 Albumin 4.2 Globulin 2.9 Albumin/Globulin Ratio 1.5 Lipase 40 Assessment & Plan - Assessment and Plan (Free Text) Assessment: This is a 62yo female with past medical history of anxiety, vertigo and mild cognitive impairment who came to ED for dizziness with nausea and vomiting x 1 day found to have new onset a.fib with RVR. Plan: 1. A.fib with RVR new onset - Cardio consulted - Pt started on heparin drip - Troponin <0.1 will continue to trend - Echo Ordered - TSH, Lipid panel and HgbA1c ordered - Patient will be on Cardizem drip - hold is BP <90/40 - If BP is low will consider giving Digoxin 0.25 IVP - EKG next day in AM 2. Hypotension - Can be secondary to a.fib versus inflammatory process versus dehydration from nausea/vomiting/diarrhea - afebrile, no leukocytosis - CXR showed no active disease - U/A pending, will check stool for C.diff - NS@100 - If nausea/vomiting worsens will obtain head CT 3. Hx of Vertigo - Meclizine prn - Zofran prn nausea - Fall precaution - Aspiration precaution - Clear liquid diet- advance as tolerated 4. Hx of Anxiety - Continue home Xanax prn GI ppx: Protonix DVT ppx: Heparin drip Case seen, discussed and reviewed with attending. Vandana Ardon PGY2 - Date & Time Date: 10/30/17 Time: 10:29 <Naomi Gan - Last Filed: 10/31/17 17:28> Results - Vital Signs Recent Vital Signs: Last Vital Signs Temp 97.4 F L 10/31/17 16:45 Pulse 109 H 10/31/17 16:45 Resp 21 10/31/17 16:45 BP 127/64 10/31/17 16:45 Pulse Ox 93 L 10/31/17 06:00 - Labs Result Diagrams: 10/31/17 06:30 10/31/17 06:30 Labs: Laboratory Results - last 24 hr 10/30/17 10/30/17 10/30/17 10:00 17:00 17:00 WBC RBC Hgb Hct MCV MCH MCHC RDW Plt Count MPV Gran % Lymph % (Auto) [place] % (Auto) Eos % (Auto) Baso % (Auto) Gran # Lymph # (Auto) [place] # (Auto) Eos # (Auto) Baso # (Auto) APTT 156.2 H* Sodium Potassium Chloride Carbon Dioxide Anion Gap BUN Creatinine Est GFR ( Amer) Est GFR (Non-Af Amer) Random Glucose Hemoglobin A1c 5.5 Calcium Phosphorus Magnesium Total Bilirubin AST ALT Alkaline Phosphatase Troponin I 0.12 D Total Protein Albumin Globulin Albumin/Globulin Ratio 10/30/17 10/31/17 10/31/17 23:20 06:30 06:30 WBC 8.8 D RBC 3.78 Hgb 11.0 L D Hct 34.7 L MCV 91.8 D MCH 29.1 MCHC 31.7 RDW 13.9 Plt Count 212 MPV 10.1 Gran % 66.1 Lymph % (Auto) 24.0 [place] % (Auto) 8.8 H Eos % (Auto) 0.9 L Baso % (Auto) 0.2 Gran # 5.82 Lymph # (Auto) 2.1 [place] # (Auto) 0.8 H Eos # (Auto) 0.1 Baso # (Auto) 0.02 APTT 76.1 H Sodium 140 Potassium 3.6 Chloride 111 H Carbon Dioxide 22 Anion Gap 11 BUN 11 Creatinine 0.6 L Est GFR ( Amer) > 60 Est GFR (Non-Af Amer) > 60 Random Glucose 81 Hemoglobin A1c Calcium 8.6 Phosphorus 3.2 Magnesium 1.8 Total Bilirubin 0.8 AST 20 ALT 23 Alkaline Phosphatase 75 Troponin I 0.13 H* Total Protein 5.3 L Albumin 3.0 Globulin 2.3 Albumin/Globulin Ratio 1.3 10/31/17 06:30 WBC RBC Hgb Hct MCV MCH MCHC RDW Plt Count MPV Gran % Lymph % (Auto) [place] % (Auto) Eos % (Auto) Baso % (Auto) Gran # Lymph # (Auto) [place] # (Auto) Eos # (Auto) Baso # (Auto) APTT 81.8 H Sodium Potassium Chloride Carbon Dioxide Anion Gap BUN Creatinine Est GFR ( Amer) Est GFR (Non-Af Amer) Random Glucose Hemoglobin A1c Calcium Phosphorus Magnesium Total Bilirubin AST ALT Alkaline Phosphatase Troponin I Total Protein Albumin Globulin Albumin/Globulin Ratio Attending/Attestation - Attestation I have personally seen and examined this patient.: Yes I have fully participated in the care of the patient.: Yes I have reviewed all pertinent clinical information: Yes Notes (Text): 10/31/17 17:26 attending note; Patient seen and examined with resident in the ER. Patient is a 62-year-old female with a past medical history of vertigo, anxiety is admitted with nausea and vomiting. Patient was found to have rapid A. fib in the ER. Started on IV Cardizem drip. Monitor blood pressure closely. IV digoxin added. Started on IV heparin drip. Cardiology evaluation with Dr. Guerrero requested. Nausea or vomiting; abdominal examination is benign. started on Zofran. Clear liquid diet as tolerated. Anxiety; continue Xanax when necessary. Mild cognitive impairment. Monitor closely in telemetry. upon discharge the patient will follow up with PMD Dr. Quiroga.
[2017-10-30] MEDS ORDERED: Sodium Chloride 0.9% 1,000 ML IV SCH (09:30)
[2017-10-30] MEDS ORDERED: Heparin25000 units/250ml 1/2NS 25,000 UNITS/250 ML BAG IV PRN (09:33)
[2017-10-30 09:41] VITALS: BMI 26.2
--- NOTE | 2017-10-30 09:52 | ED PDOC ---
Physical Exam Vital Signs Reviewed: Yes Vital Signs Temp Pulse Resp BP Pulse Ox 10/30/17 09:41 98 F 110 H 18 91/59 L 95 10/30/17 09:38 140 H 91/59 L 10/30/17 09:13 140 H 18 96/51 L 96 10/30/17 07:26 71 18 96/40 L 96 10/30/17 05:27 97.4 F L 88 18 137/84 97 Temperature: Afebrile Blood Pressure: Hypotensive Pulse: Tachycardic Appearance: Positive for: Non-Toxic Pain Distress: Mild Mental Status: Positive for: Alert and Oriented X 3 - Systems Exam Respiratory/Chest: Present: Clear to Auscultation. No: Respiratory Distress Cardiovascular: Present: Irregular Rhythm, Tachycardic Lower Extremity: No: Edema, CALF TENDERNESS Neurological: Present: Motor Func Grossly Intact, Normal Sensory Function Skin: Present: Warm Psychiatric: Present: Alert, Oriented x 3 Medical Decision Making ED Course and Treatment: 10/30/17 09:49 Patient endorsed to me from previous shift. Patient's chart and history reviewed. Patient reports persistent dizziness, states since 4 am. She reports feeling "heart racing on and off for a while". She is dizzy with standing. No headache, no focal neuro deificts noted. Denies chest pain. No leg edema. Abdomen soft and nontender. As patient being observed and monitored, noted to be tachycardic on re- evaluation. EKG repeated and reveals new onset atrial fibrillation with rapid ventricular response. She denies chest pain. Denies shortness of breath. No recent bleeding or gi bleeding reported or noted. Cardizem ordered, heparin ordered. Patient advised of abnormalities and plan for admission. Treatment plan reviewed and patient accepted by Dr. Gan with cardiology consultations. - Lab Interpretations Lab Results: 10/30/17 05:42 10/30/17 05:42 Lab Results 10/30/17 06:00: Lactate Dehydrogenase 264 L, Total Creatine Kinase 27 L, Troponin I Pending 10/30/17 05:42: Sodium 141, Potassium 3.9, Chloride 106, Carbon Dioxide 25, Anion Gap 14, BUN 15, Creatinine 0.5 L, Est GFR ( Amer) > 60, Est GFR ( Non-Af Amer) > 60, Random Glucose 126 H, Calcium 9.8, Total Bilirubin 0.6, AST 19, ALT 24, Alkaline Phosphatase 111, Total Protein 7.1, Albumin 4.2, Globulin 2.9, Albumin/Globulin Ratio 1.5, Lipase 40 10/30/17 05:42: WBC 6.3 D, RBC 4.46, Hgb 13.2 D, Hct 39.6, MCV 88.8, MCH 29.6 , MCHC 33.3, RDW 13.2, Plt Count 235, MPV 9.5, Gran % 60.2, Lymph % (Auto) 30.1 , [place] % (Auto) 8.2 H, Eos % (Auto) 1.3 L, Baso % (Auto) 0.2, Gran # 3.81, Lymph # (Auto) 1.9, [place] # (Auto) 0.5, Eos # (Auto) 0.1, Baso # (Auto) 0.01 - Medication Orders Current Medication Orders: Acetaminophen (Tylenol 325mg Tab) 650 mg PO Q6H PRN PRN Reason: Fever >100.4 F Sodium Chloride (Sodium Chloride 0.9%) 1,000 mls @ 1,000 mls/hr IV .Q1H STA Stop: 10/30/17 10:07 Last Admin: 10/30/17 09:13 Dose: 1,000 mls/hr eMAR Start Stop Document 10/30/17 09:13 SRE (Rec: 10/30/17 09:13 SRE [id number]) Intravenous Solution Start Date 10/30/17 Start Time 09:13 End Date 10/30/17 End time 10:15 Total Infusion Time 62 Sodium Chloride (Sodium Chloride 0.9%) 1,000 mls @ 100 mls/hr IV .Q10H [facility] Heparin Sodium/Sodium Chloride (Heparin 52336 Units/250ml 1/2 Normal Saline) 25 ,000 units in 250 mls @ 10.614 mls/hr IV .[id number] PRN; Protocol; 18 UNITS/KG/HR PRN Reason: ADJUST RATE PER PROTOCOL Ondansetron HCl (Zofran Inj) 4 mg IVP Q6H PRN PRN Reason: Nausea/Vomiting Pantoprazole Sodium (Protonix Inj) 40 mg IVP Q12 BREANA Discontinued Medications Diltiazem HCl (Cardizem) 10 mg IVP STAT STA Stop: 10/30/17 09:33 Last Admin: 03/10/18 09:38 Dose: Famotidine (Pepcid) 20 mg IVP STAT STA Stop: 10/30/17 06:00 Last Admin: 10/30/17 06:37 Dose: 20 mg IVP Administration Document 10/30/17 06:37 RD (Rec: 10/30/17 06:37 RD [id number]) Charges for Administration # of IVP Administrations 1 Heparin Sodium (Porcine) (Heparin) 4,000 units IV ONCE ONE PRN Reason: Protocol Stop: 10/30/17 09:43 Sodium Chloride (Sodium Chloride 0.9%) 1,000 mls @ 999 mls/hr IV .Q1H1M STA Stop: 10/30/17 06:30 Last Admin: 10/30/17 05:47 Dose: 999 mls/hr eMAR Start Stop Document 10/30/17 05:47 RD (Rec: 10/30/17 05:47 RD [id number]) Intravenous Solution Start Date 10/30/17 Start Time 05:47 End Date 10/30/17 End time 06:47 Total Infusion Time 60 Meclizine HCl (Antivert) 25 mg PO STAT STA Stop: 10/30/17 06:38 Last Admin: 10/30/17 07:26 Dose: 25 mg Metoclopramide HCl (Reglan) 10 mg IVP STAT STA Stop: 10/30/17 06:38 Last Admin: 10/30/17 07:26 Dose: 10 mg IVP Administration Document 10/30/17 07:26 SRE (Rec: 10/30/17 07:26 SRE [id number]) Charges for Administration # of IVP Administrations 1 Ondansetron HCl (Zofran Inj) 4 mg IVP STAT STA Stop: 10/30/17 05:31 Last Admin: 10/30/17 05:47 Dose: 4 mg IVP Administration Document 10/30/17 05:47 RD (Rec: 10/30/17 05:47 RD [id number]) Charges for Administration # of IVP Administrations 1 Ondansetron HCl (Zofran Inj) 4 mg IVP STAT STA Stop: 10/30/17 06:00 Last Admin: 10/30/17 06:35 Dose: 4 mg IVP Administration Document 10/30/17 06:35 RD (Rec: 10/30/17 06:37 RD [id number]) Charges for Administration # of IVP Administrations 1 Disposition/Present on Arrival - Present on Arrival Any Indicators Present on Arrival: No History of DVT/PE: No History of Uncontrolled Diabetes: No Urinary Catheter: No History of Decub. Ulcer: No History Surgical Site Infection Following: None - Disposition Have Diagnosis and Disposition been Completed?: Yes Diagnosis: New onset atrial fibrillation, Dizziness Disposition: HOSPITALIZED Disposition Time: 09:25 Patient Plan: Admission, Telemetry Patient Problems: Current Active Problems Problem Status Onset Vertigo Acute Condition: FAIR
[2017-10-30 09:55] LABS: INR 0.98 (0.93-1.08); PARTIAL THROMBOPLASTIN TIME 24.1 Seconds (25.1-36.5); PROTHROMBIN TIME 11.3 SECONDS (9.4-12.5)
[2017-10-30 10:00] LABS: TROPONIN I < 0.01 ng/mL
[2017-10-30] MEDS: Heparin25000 units/250ml 1/2NS 25,000 UNITS/250 ML BAG IV PRN (10:01)
[2017-10-30] MEDS ORDERED: diltiaZEM IVPB 100mg in NS 100 ML IV PRN ×2 (10:05→10:27)
[2017-10-30 10:33] LABS: URINE BILIRUBIN NEGATIVE (NEGATIVE); URINE BLOOD NEGATIVE (NEGATIVE); URINE GLUCOSE (UA) NEGATIVE (NEGATIVE); URINE LEUKOCYTE ESTERASE NEGATIVE Leu/uL (NEGATIVE); URINE PROTEIN NEGATIVE mg/dL (<30 mg/dL); URINE UROBILINOGEN 0.2 E.U./dL (<1 E.U./dL)
[2017-10-30 10:35] LABS: FREE T4 1.29 ng/dL (0.78-2.19)
[2017-10-30 10:36] LABS: HDL CHOLESTEROL 45 mg/dL (29-60)
[2017-10-30 10:40] LABS: URINE APPEARANCE CLEAR (CLEAR); URINE COLOR YELLOW (YELLOW)
[2017-10-30 10:47] LABS: LDL CHOLESTEROL 104 mg/dL (0-129)
--- NOTE | 2017-10-30 11:50 | RAD ---
HISTORY: new onset atrial fibrillation COMPARISON: 08/14/2017 FINDINGS: LUNGS: No active pulmonary disease. PLEURA: No significant pleural effusion identified, no pneumothorax apparent. CARDIOVASCULAR: No radiographic findings to suggest acute or significant cardiovascular disease. OSSEOUS STRUCTURES: No significant abnormalities. VISUALIZED UPPER ABDOMEN: Normal. OTHER FINDINGS: None. IMPRESSION: No active disease. No significant interval change compared to the prior examination(s).
[2017-10-30] MEDS ORDERED: Influenza Vaccine 60 mcg/0.5 mL SYR (4YR UP) IM ONE (12:30)
[2017-10-30] MEDS ORDERED: Pneumococcal 23-Valent Vaccine IM ONE (12:30)
[2017-10-30] MEDS ORDERED: Digoxin 500 mcg/2ml (0.5 mg/2ml) Inj IVP ONE (16:09)
--- NOTE | 2017-10-30 16:46 | CARD ---
APPROVED REPORT EKG Measurement Heart [id number] <Conclusion> Atrial fibrillation with rapid ventricular response Nonspecific ST abnormality, probably digitalis effect Abnormal ECG
--- NOTE | 2017-10-30 16:48 | CARD ---
APPROVED REPORT EKG Measurement Heart [id number] <Conclusion> Normal sinus rhythm Normal ECG
[2017-10-30] MEDS: Sodium Chloride 0.9% 1,000 ML IV SCH (23:52)
[2017-10-31] MEDS ORDERED: Digoxin 500 mcg/2ml (0.5 mg/2ml) Inj IVP ONE (06:50)
[2017-10-31 07:30] LABS: ALB/GLOB RATIO 1.3 (1.1-1.8); ALT/SGPT 23 U/L (7-56); AST/SGOT 20 U/L (14-36); BLOOD UREA NITROGEN 11 mg/dL (7-21); CALCIUM 8.6 mg/dL (8.4-10.5); GFR AFRICAN-AMERICAN > 60; GFR NON-AFRICAN AMERICAN > 60
[2017-10-31 07:34] LABS: BASO # 0.02 K/mm3 (0.0-2.0); BASO % 0.2 % (0.0-3.0); EOS # 0.1 (0.0-0.7); EOS % 0.9 % (1.5-5.0); GRAN # 5.82 (1.4-6.5); GRAN % 66.1 % (50.0-68.0); LYMPH # 2.1 (1.2-3.4); MEAN CORPUSCULAR HEMOGLOBIN 29.1 pg (25.0-35.0); MEAN CORPUSCULAR HGB CONC 31.7 g/dl (31.0-37.0); MEAN PLATELET VOLUME 10.1 fl (7.0-11.0); MONO # 0.8 (0.1-0.6); MONO % 8.8 % (1.0-6.0); RBC 3.78 10^6/uL (3.5-6.1); RED CELL DISTRIBUTION WIDTH 13.9 % (11.5-14.5); WHITE BLOOD COUNT 8.8 10^3/ul (4.5-11.0)
[2017-10-31 07:41] LABS: MEAN CELL VOLUME 91.8 fl (80.0-105.0)
[2017-10-31 07:51] LABS: TROPONIN I 0.13 ng/mL
--- NOTE | 2017-10-31 10:37 | CP.PCM.PN ---
<Iggy Love - Last Filed: 10/31/17 10:29> Subjective - Date & Time of Evaluation Date of Evaluation: 10/31/17 Time of Evaluation: 06:00 - Subjective Subjective: Patient seen and evaluated bedside. Patient says she has been nauseas and vomiting. No abdominal pain, chest pain, headaches, shortness of breath or any other complaints at this time. Objective - Vital Signs/Intake and Output Vital Signs (last 24 hours): Temp Pulse Resp BP Pulse Ox 98.5 F 100 H 20 86/45 L 93 L 10/31/17 06:00 10/31/17 06:00 10/31/17 06:00 10/31/17 06:00 10/31/17 06:00 Intake and Output: 10/31/17 10/31/17 06:59 18:59 Intake Total Balance - Medications Medications: Current Medications Acetaminophen (Tylenol 325mg Tab) 650 mg PO Q6H PRN PRN Reason: Fever >100.4 F Last Admin: 10/31/17 01:25 Dose: 650 mg Alprazolam (Xanax) 0.25 mg PO BID PRN; Protocol PRN Reason: Anxiety Stop: 11/06/17 10:36 Last Admin: 10/30/17 21:09 Dose: 0.25 mg Aspirin (Ecotrin) 81 mg PO 0800 BREANA Digoxin (Lanoxin) 0.25 mg PO 1400 BREANA Heparin Sodium/Sodium Chloride (Heparin 31006 Units/250ml 1/2 Normal Saline) 25 ,000 units in 250 mls @ 10.614 mls/hr IV .[id number] PRN; Protocol; 18 UNITS/KG/HR PRN Reason: ADJUST RATE PER PROTOCOL Last Titration: 10/30/17 20:22 Dose: 15 units/kg/hr, 8.845 mls/hr diltiaZEM IVPB 100mg in NS (Cardizem 100mg In Ns) 100 mls @ 5 mls/hr IV .Q20H PRN; Protocol; 5 MG/HR PRN Reason: TITRATE PER MD ORDER Last Titration: 10/31/17 05:42 Dose: 0 mg/hr, 0 mls/hr Sodium Chloride (Sodium Chloride 0.9%) 1,000 mls @ 150 mls/hr IV .Q6H40M BREANA Last Admin: 10/30/17 23:52 Dose: 150 mls/hr Meclizine HCl (Antivert) 25 mg PO BID PRN PRN Reason: Dizziness Ondansetron HCl (Zofran Inj) 4 mg IVP Q6H PRN PRN Reason: Nausea/Vomiting Last Admin: 10/31/17 07:16 Dose: 4 mg Pantoprazole Sodium (Protonix Inj) 40 mg IVP Q12 BREANA Last Admin: 10/31/17 09:29 Dose: 40 mg Sotalol HCl (Betapace) 40 mg PO BID BREANA - Labs Labs: 10/31/17 06:30 10/31/17 06:30 PT 11.3 SECONDS (9.4-12.5) 10/30/17 06:00 INR 0.98 (0.93-1.08) 10/30/17 06:00 APTT 81.8 Seconds (25.1-36.5) H 10/31/17 06:30 - Constitutional Appears: Non-toxic, No Acute Distress - Head Exam Head Exam: ATRAUMATIC, NORMAL INSPECTION, NORMOCEPHALIC - Eye Exam Eye Exam: Normal appearance - ENT Exam ENT Exam: Mucous Membranes Moist - Respiratory Exam Respiratory Exam: Clear to Ausculation Bilateral, NORMAL BREATHING PATTERN - Cardiovascular Exam Cardiovascular Exam: Irregular Rhythm - GI/Abdominal Exam GI & Abdominal Exam: Soft. absent: Tenderness - Extremities Exam Extremities Exam: absent: Joint Swelling, Pedal Edema - Neurological Exam Neurological Exam: Alert, Awake, Oriented x3 Assessment and Plan - Assessment and Plan (Free Text) Assessment: This is a 62yo female with past medical history of anxiety, vertigo and mild cognitive impairment who came to ED for dizziness with nausea and vomiting x 1 day found to have new onset a.fib with RVR Plan: 1. A.fib with RVR new onset - Cardio consulted - Pt started on heparin drip - Troponin <0.01, .03, .12, .13 - Echo pending - TSH WNL - Trigl: 127, chol: 169, LDL 104, HDL 45 - A1C pending - Patient will be on Cardizem drip - hold is BP <90/40 - If BP is low will consider giving Digoxin 0.25 IVP - EKG next day in AM 2. Hypotension - Can be secondary to a.fib versus inflammatory process versus dehydration from nausea/vomiting/diarrhea - afebrile, no leukocytosis - CXR showed no active disease - U/A negative - C diff pending - NS@100 - CT head pending 3. Hx of Vertigo with - Meclizine prn - Zofran prn nausea - Fall precaution - Aspiration precaution - NPO - CT head pending 4. Hx of Anxiety - Continue home Xanax prn -one dose ativan .5 given 5. Nausea and vomiting -CT head pending -zofran -NPO -GI consulted, Marguerite, follow recs GI ppx: Protonix DVT ppx: Heparin drip <RangasaNaomi torres - Last Filed: 10/31/17 18:27> Objective - Vital Signs/Intake and Output Vital Signs (last 24 hours): Temp Pulse Resp BP Pulse Ox 97.4 F L 109 H 21 127/64 93 L 10/31/17 16:45 10/31/17 16:45 10/31/17 16:45 10/31/17 16:45 10/31/17 06:00 Intake and Output: 10/31/17 10/31/17 06:59 18:59 Intake Total 160 Balance 160 - Medications Medications: Current Medications Acetaminophen (Tylenol 325mg Tab) 650 mg PO Q6H PRN PRN Reason: Fever >100.4 F Last Admin: 10/31/17 01:25 Dose: 650 mg Alprazolam (Xanax) 0.25 mg PO BID PRN; Protocol PRN Reason: Anxiety Stop: 11/06/17 10:36 Last Admin: 10/30/17 21:09 Dose: 0.25 mg Aspirin (Ecotrin) 81 mg PO 0800 BREANA Last Admin: 10/31/17 13:19 Dose: 81 mg Dexamethasone (Decadron Inj) 4 mg IVP ONCE ONE Stop: 10/31/17 18:01 Last Admin: 10/31/17 17:01 Dose: 4 mg Digoxin (Lanoxin) 0.25 mg PO 1400 BREANA Last Admin: 10/31/17 13:18 Dose: 0.25 mg Heparin Sodium/Sodium Chloride (Heparin 45774 Units/250ml 1/2 Normal Saline) 25 ,000 units in 250 mls @ 10.614 mls/hr IV .[id number] PRN; Protocol; 18 UNITS/KG/HR PRN Reason: ADJUST RATE PER PROTOCOL Last Admin: 10/31/17 16:37 Dose: 13 units/kg/hr, 7.666 mls/hr diltiaZEM IVPB 100mg in NS (Cardizem 100mg In Ns) 100 mls @ 5 mls/hr IV .Q20H PRN; Protocol; 5 MG/HR PRN Reason: TITRATE PER MD ORDER Last Titration: 10/31/17 05:42 Dose: 0 mg/hr, 0 mls/hr Sodium Chloride (Sodium Chloride 0.9%) 1,000 mls @ 150 mls/hr IV .Q6H40M [facility] Last Admin: 10/31/17 15:24 Dose: 150 mls/hr Meclizine HCl (Antivert) 25 mg PO BID PRN PRN Reason: Dizziness Metoclopramide HCl (Reglan) 10 mg IVP ACHS [facility] Last Admin: 10/31/17 17:00 Dose: 10 mg Ondansetron HCl (Zofran Inj) 4 mg IVP Q6H PRN PRN Reason: Nausea/Vomiting Last Admin: 10/31/17 07:16 Dose: 4 mg Pantoprazole Sodium (Protonix Inj) 40 mg IVP Q12 [facility] Last Admin: 10/31/17 09:29 Dose: 40 mg Sotalol HCl (Betapace) 40 mg PO BID [facility] - Labs Labs: 10/31/17 06:30 10/31/17 06:30 PT 11.3 SECONDS (9.4-12.5) 10/30/17 06:00 INR 0.98 (0.93-1.08) 10/30/17 06:00 APTT 81.8 Seconds (25.1-36.5) H 10/31/17 06:30 Attending/Attestation - Attestation I have personally seen and examined this patient.: Yes I have fully participated in the care of the patient.: Yes I have reviewed all pertinent clinical information, including history, physical exam and plan: Yes Notes (Text): 10/31/17 17:35 attending note; Patient seen and examined with resident in room 261. patient had episode of nausea and vomiting. Patient is a 62-year-old female with a past medical history of vertigo, anxiety is admitted with nausea and vomiting. Patient was found to have rapid A. fib. currently started on sotalol and digoxin. Cardiology evaluation with Dr. Guerrero appreciated. Echocardiogram ordered. Troponin elevated. continue aspirin on IV heparin drip. Nausea or vomiting; abdominal examination is benign. started on Zofran. CT abdomen and pelvis is negative.Clear liquid diet as tolerated. vertigo; continue meclizine. Started on IV Decadron. Case discussed with neurology Dr. Worthy in detail. CT head is negative. Anxiety; continue Xanax when necessary. Mild cognitive impairment. Monitor closely in telemetry. upon discharge the patient will follow up with PMD Dr. Quiroga.
[2017-10-31] MEDS ORDERED: Dexamethasone 4 mg/1 ml IVP STA (11:06)
--- NOTE | 2017-10-31 11:23 | CT ---
PROCEDURE: CT HEAD WITHOUT CONTRAST. HISTORY: Nausea/Vomiting ruling out neuro cause COMPARISON: 01/12/2017 TECHNIQUE: Axial computed tomography images were obtained through the head/brain without intravenous contrast. Coronal and sagittal reconstructed images. Radiation dose: Total exam DLP = 986.24 mGy-cm. This CT exam was performed using one or more of the following dose reduction techniques: Automated exposure control, adjustment of the mA and/or kV according to patient size, and/or use of iterative reconstruction technique. FINDINGS: HEMORRHAGE: No intracranial hemorrhage. BRAIN: No mass effect or edema. No atrophy or chronic microvascular ischemic changes. VENTRICLES: Unremarkable. No hydrocephalus. CALVARIUM: Unremarkable. PARANASAL SINUSES: Unremarkable as visualized. No significant inflammatory changes. MASTOID AIR CELLS: Unremarkable as visualized. No inflammatory changes. OTHER FINDINGS: None. IMPRESSION: No acute intracranial abnormalities. No significant findings to account for the clinical presentation. No significant interval change compared to the prior examination(s).
--- NOTE | 2017-10-31 11:29 | CT ---
PROCEDURE: CT Abdomen and Pelvis without intravenous contrast HISTORY: nausea and vomiting COMPARISON: 08/14/2017 TECHNIQUE: Unenhanced study. Neither oral nor intravenous contrast administered. Sensitivity and specificity for acute inflammatory processes limited by the absence of oral and intravenous contrast. . Radiation dose: Total exam DLP = 634.39 mGy-cm. This CT exam was performed using one or more of the following dose reduction techniques: Automated exposure control, adjustment of the mA and/or kV according to patient size, and/or use of iterative reconstruction technique. FINDINGS: LOWER THORAX: Pulmonary vascular plethora, incompletely visualized and trace bilateral pleural effusions. LIVER: Unremarkable. No gross lesion or ductal dilatation. GALLBLADDER AND BILE DUCTS: Cholelithiasis without CT evidence of acute cholecystitis. PANCREAS: Unremarkable. No gross lesion or ductal dilatation. SPLEEN: Unremarkable. ADRENALS: Unremarkable. No mass. KIDNEYS AND URETERS: Unremarkable. No hydronephrosis. No solid mass. VASCULATURE: Unremarkable. No aortic aneurysm. BOWEL: Diverticulosis without an acute inflammatory component or other associated pathologic process. APPENDIX: Unremarkable. Normal appendix. PERITONEUM: Unremarkable. No free fluid. No free air. LYMPH NODES: Trace fluid about the spleen BLADDER: Unremarkable. REPRODUCTIVE: Prior hysterectomy BONES: No acute fracture. Scoliosis, secondary degenerative change at multiple levels. OTHER FINDINGS: None. IMPRESSION: Cholelithiasis without CT evidence of acute cholecystitis. No acute findings related to/accounting for the clinical presentation. No significant interval change compared to the prior examination(s). Additional benign and/or incidental findings described above.
[2017-10-31] MEDS: Digoxin 250 mcg (0.25 mg) Tab PO SCH (13:18)
[2017-10-31] MEDS: Sodium Chloride 0.9% 1,000 ML IV SCH ×2 (15:24→21:34)
[2017-10-31] MEDS: Heparin25000 units/250ml 1/2NS 25,000 UNITS/250 ML BAG IV PRN (16:37)
[2017-10-31] MEDS ORDERED: Dexamethasone 4 mg/1 ml IVP ONE (18:00)
--- NOTE | 2017-10-31 19:01 | CON ---
DATE: 10/31/2017 REQUESTING PHYSICIAN: Naomi Gan MD. REASON FOR CONSULTATION: Atrial fibrillation. HISTORY OF PRESENT ILLNESS: This is a 62-year-old woman who was visiting family out of town and developed severe nausea and vomiting. She became extremely weak and lightheaded. She presented to the emergency room. She initially was treated with IV fluids. While in the emergency room, she developed atrial fibrillation with rapid ventricular response. She was started on IV Cardizem as well as IV heparin. She is unaware of any prior cardiac history. She denies any palpitations. She states she has no chest pain or dyspnea ordinarily. PAST MEDICAL HISTORY: Notable for back issues for which she has undergone surgery in the past. She also had corrective jaw surgery and a prior hysterectomy. She also has chronic vertigo. History of diverticulosis, gastritis, and hydrocephalus in childhood. MEDICATIONS: At home, include Xanax and Fioricet. SOCIAL HISTORY: Does not smoke or drink. FAMILY HISTORY: Mother from heart disease in her 70s. One brother is also from unknown cause. REVIEW OF SYSTEMS: A 10-point review of systems is otherwise unremarkable. PHYSICAL EXAMINATION: GENERAL: She is a middle-aged woman of short stature, currently appears comfortable in bed. VITAL SIGNS: Her blood pressure is 86/46 with a pulse of 100, in atrial fibrillation; respirations are 14. She is afebrile. HEENT: Normocephalic, atraumatic. NECK: Supple. No JVD noted. CHEST: Clear to auscultation and percussion. HEART: PMI displaced laterally with a soft systolic murmur at the left sternal border. ABDOMEN: Soft and nontender with normoactive bowel sounds. EXTREMITIES: No clubbing, cyanosis, or edema. SKIN: Warm and dry. PSYCHIATRIC: Normal mood and affect. NEUROLOGIC: Alert and oriented x3. No gross motor or sensory is appreciable. DIAGNOSTIC DATA: White count is 6.3, hemoglobin and hematocrit 13.2 and 39.6 with platelet count of 235,000. Initial PTT was normal, repeat this morning 76.1. Potassium 3.9, BUN and creatinine 15 and 0.5. CK negative. Three sets cardiac enzymes are negative. Cholesterol 169 with an LDL 104, HDL 45, lipase 40. TSH 2.39. Initial electrocardiogram reveals sinus rhythm and was normal. Followup electrocardiogram revealed atrial fibrillation with rapid ventricular response and secondary ST-T changes. Chest x-ray reveals normal cardiac silhouette with clear lung lieberman. IMPRESSION: 1. New-onset atrial fibrillation, possibly precipitated by stress of gastrointestinal illness. 2. Apparent gastroenteritis. 3. Rest of problems as noted. RECOMMENDATIONS: IV heparin will be continued for now. Diltiazem has been withheld because of transient low blood pressure. This will likely improve with better control of heart rate. In the interim, digoxin will be initiated for heart rate control as long as GI side effects do not occur. In addition, low-dose sotalol will be initiated in an attempt to convert to sinus rhythm. An echocardiogram has been ordered. Eventual stress test should be arranged. Thank you for this consultation. We will be happy to follow her through the hospital course. Ronan Rod MD
--- NOTE | 2017-10-31 23:03 | CARD ---
APPROVED REPORT EKG Measurement Heart [id number] <Conclusion> Atrial fibrillation with rapid ventricular response Nonspecific ST and T wave abnormality, probably digitalis effect Abnormal ECG
--- NOTE | 2017-10-31 23:46 | CON ---
DATE: 10/31/2017 GASTROENTEROLOGY CONSULTATION REQUESTING PHYSICIAN: Naomi Gan MD REASON FOR CONSULTATION: I have been asked to see this 62-year-old female who comes to the hospital with vertigo, dizziness, nausea, vomiting and several episodes of diarrhea for 1 day. The patient states that her diarrhea has resolved. She continues to experience nausea and vomiting. She was unable to take a liquid breakfast this morning. She denies any abdominal pain. She denies any fevers, chills, hematemesis, melena or rectal bleeding. CT scan of the head was negative for any intracranial findings. CT scan of the abdomen and pelvis was negative for intestinal obstruction. She was noted to have gallstones without any gallbladder wall thickening or pericholecystic fluid. There are no acute findings in the abdomen and pelvis on CAT scan. She denies ingestion of any unusual foods. She is known to have diverticulosis. She denies any recent travel or anyone ill at home. In the emergency room, the patient was noted to be in atrial fibrillation with rapid ventricular rate. Her heart rate has been controlled with diltiazem and sotalol. PAST MEDICAL HISTORY: Notable for vertigo, anxiety, mental retardation. PAST SURGICAL HISTORY: Notable for hysterectomy, jaw surgery, back surgery. SOCIAL HISTORY: She denies cigarette smoking or alcohol abuse. She lives in [place], [place], and is visiting [place] with her brother. FAMILY HISTORY: Noncontributory. REVIEW OF SYSTEMS: Fourteen-point review of systems is notable for dizziness, lightheadedness, nausea, vomiting, diarrhea. MEDICATIONS: At home include Xanax and meclizine. ALLERGIES: SHE IS ALLERGIC TO CODEINE AND OXYCODONE. PHYSICAL EXAMINATION GENERAL: Well-developed female, lying in bed, in no acute distress. She is still complaining of nausea. VITAL SIGNS: Reveal temperature of 98.5, heart rate of 125, blood pressure of 86/45. HEENT: Reveal sclerae to be white. Conjunctivae pink. NECK: Supple. CHEST: Reveal lungs to be clear. HEART: Exam reveals regular rate and rhythm with a controlled rate. ABDOMEN: Soft, nontender. Normal bowel sounds. EXTREMITIES: Show no edema. LABORATORY DATA: Reveal white blood cell count 8.8, hemoglobin of 11. Chemistries reveal normal AST, ALT, alk phos. Chloride is 111, bicarb is 22. Troponin is elevated at 0.13. TSH and free T4 are normal. Serum lipase on admission was normal. IMPRESSION: 1. A 62-year-old female with 1 day of nausea, vomiting, diarrhea, vertigo, dizziness. CT scan of the abdomen and pelvis as well as CT scan of the head are negative for any acute abnormalities. I suspected her symptoms are related to vertigo. She may have an acute gastroenteritis. 2. New onset atrial fibrillation. 3. New elevation of troponin, with her nausea and vomiting, one must rule out acute coronary syndrome. RECOMMENDATIONS: 1. We will start the patient on Reglan 10 mg IV before meals and at bedtime. 2. Continue PPI. 3. Cardiology evaluation. 4. No contraindication to anticoagulation if needed. Dany Everett MD
[2017-11-01] MEDS: Sodium Chloride 0.9% 1,000 ML IV SCH (03:48)
[2017-11-01 06:37] LABS: GRAN # 6.49 (1.4-6.5); GRAN % 81.6 % (50.0-68.0); HEMOGLOBIN 10.3 g/dL (12.0-16.0); LYMPH # 0.8 (1.2-3.4); LYMPH % 9.5 % (22.0-35.0); MEAN CELL VOLUME 90.1 fl (80.0-105.0); MEAN CORPUSCULAR HEMOGLOBIN 29.3 pg (25.0-35.0); MEAN CORPUSCULAR HGB CONC 32.5 g/dl (31.0-37.0); MONO # 0.7 (0.1-0.6); MONO % 8.9 % (1.0-6.0); RBC 3.52 10^6/uL (3.5-6.1); RED CELL DISTRIBUTION WIDTH 13.5 % (11.5-14.5)
[2017-11-01 07:05] LABS: ALB/GLOB RATIO 1.1 (1.1-1.8); ALBUMIN 2.8 g/dL (3.0-4.8); ALT/SGPT 25 U/L (7-56); AST/SGOT 15 U/L (14-36); BLOOD UREA NITROGEN 10 mg/dL (7-21); CALCIUM 8.8 mg/dL (8.4-10.5); GFR AFRICAN-AMERICAN > 60; GFR NON-AFRICAN AMERICAN > 60
--- NOTE | 2017-11-01 09:10 | CP.PCM.PN ---
Subjective - Date & Time of Evaluation Date of Evaluation: 11/01/17 Time of Evaluation: 07:00 - Subjective Subjective: Stable on 2R. No CP or SOB. Now in RSR. V/S noted: RSR 92/51 PE: Lungs: clear Cor.: S1S2 Abd.: soft Ext.: no edema Neuro.: alert Labs noted: PTT = 47, H/H 10/31, trops noted: 0.03, 0.12, 0.13 Echo done: prelim: Nl LV. See full report ECG: RSR, NSSTW changes, QTc = 449 Objective - Vital Signs/Intake and Output Vital Signs (last 24 hours): Temp Pulse Resp BP Pulse Ox 98.4 F 96 H 20 92/51 L 97 11/01/17 06:00 11/01/17 06:00 11/01/17 06:00 11/01/17 06:00 11/01/17 06:00 Intake and Output: 11/01/17 11/01/17 06:59 18:59 Intake Total 2894 Output Total 500 Balance 2394 - Medications Medications: Current Medications Acetaminophen (Tylenol 325mg Tab) 650 mg PO Q6H PRN PRN Reason: Fever >100.4 F Last Admin: 10/31/17 01:25 Dose: 650 mg Alprazolam (Xanax) 0.25 mg PO BID PRN; Protocol PRN Reason: Anxiety Stop: 11/06/17 10:36 Last Admin: 10/30/17 21:09 Dose: 0.25 mg Aspirin (Ecotrin) 81 mg PO 0800 [facility] Last Admin: 11/01/17 08:40 Dose: 81 mg Digoxin (Lanoxin) 0.25 mg PO 1400 [facility] Last Admin: 10/31/17 13:18 Dose: 0.25 mg Sodium Chloride (Sodium Chloride 0.9%) 1,000 mls @ 150 mls/hr IV .Q6H40M [facility] Last Admin: 11/01/17 03:48 Dose: 150 mls/hr Meclizine HCl (Antivert) 25 mg PO BID PRN PRN Reason: Dizziness Metoclopramide HCl (Reglan) 10 mg IVP ACHS [facility] Last Admin: 11/01/17 08:40 Dose: 10 mg Ondansetron HCl (Zofran Inj) 4 mg IVP Q6H PRN PRN Reason: Nausea/Vomiting Last Admin: 10/31/17 07:16 Dose: 4 mg Pantoprazole Sodium (Protonix Inj) 40 mg IVP Q12 [facility] Last Admin: 10/31/17 21:30 Dose: 40 mg Sotalol HCl (Betapace) 40 mg PO BID [facility] Last Admin: 10/31/17 19:46 Dose: 40 mg - Labs Labs: 11/01/17 05:30 11/01/17 05:30 PT 11.3 SECONDS (9.4-12.5) 10/30/17 06:00 INR 0.98 (0.93-1.08) 10/30/17 06:00 APTT 47.7 Seconds (25.1-36.5) H 11/01/17 01:50 Assessment and Plan - Assessment and Plan (Free Text) Assessment: Weakness, Nausea, Vomiting PAF Minimally elevated 3rd troponin Vertigo by hx. H/O Back surgery, Jaw surgery Diverticulosis Hysterectomy Hydrocephalus in childhood Plan: Continue sotolol and digoxin D/C IV heparin and IVF [id number] score= 1. ASA therapy. Will read echo. Out-pt nuclear stress test: to be arranged As per GI and Medical Team OOB
--- NOTE | 2017-11-01 10:12 | CARD ---
APPROVED REPORT EKG Measurement Heart [id number] <Conclusion> Normal sinus rhythm, new c/w ECG 10/31/17 with AF. NSSTW changes
--- NOTE | 2017-11-01 14:09 | CP.PCM.PN ---
<FayeFlorencio - Last Filed: 11/01/17 17:50> Subjective - Date & Time of Evaluation Date of Evaluation: 11/01/17 Time of Evaluation: 17:50 - Subjective Subjective: Medicine progress note: Dr. Bang Patient seen and examined at bedside, patient is doing well. I explained the meaning of A Fib RVR to her, she expressed understanding. All symptoms have resolved. No further complaints. Objective - Vital Signs/Intake and Output Vital Signs (last 24 hours): Temp Pulse Resp BP Pulse Ox 97.8 F 85 20 105/64 96 11/01/17 12:00 11/01/17 12:00 11/01/17 12:00 11/01/17 12:00 11/01/17 09:33 Intake and Output: 11/01/17 11/01/17 06:59 18:59 Intake Total 2894 Output Total 500 Balance 2394 - Medications Medications: Current Medications Acetaminophen (Tylenol 325mg Tab) 650 mg PO Q6H PRN PRN Reason: Fever >100.4 F Last Admin: 10/31/17 01:25 Dose: 650 mg Alprazolam (Xanax) 0.25 mg PO BID PRN; Protocol PRN Reason: Anxiety Stop: 11/06/17 10:36 Last Admin: 10/30/17 21:09 Dose: 0.25 mg Aspirin (Ecotrin) 81 mg PO 0800 [facility] Last Admin: 11/01/17 08:40 Dose: 81 mg Digoxin (Lanoxin) 0.25 mg PO 1400 [facility] Last Admin: 10/31/17 13:18 Dose: 0.25 mg Meclizine HCl (Antivert) 25 mg PO BID PRN PRN Reason: Dizziness Metoclopramide HCl (Reglan) 10 mg IVP ACHS [facility] Last Admin: 11/01/17 08:40 Dose: 10 mg Nitrofurantoin Macrocrystals (Macrobid) 100 mg PO Q12 [facility] PRN Reason: Protocol Stop: 11/08/17 22:01 Ondansetron HCl (Zofran Inj) 4 mg IVP Q6H PRN PRN Reason: Nausea/Vomiting Last Admin: 10/31/17 07:16 Dose: 4 mg Pantoprazole Sodium (Protonix Inj) 40 mg IVP Q12 [facility] Last Admin: 11/01/17 09:27 Dose: 40 mg Sotalol HCl (Betapace) 40 mg PO BID [facility] Last Admin: 11/01/17 09:20 Dose: 40 mg - Labs Labs: 11/01/17 05:30 11/01/17 05:30 PT 11.3 SECONDS (9.4-12.5) 10/30/17 06:00 INR 0.98 (0.93-1.08) 10/30/17 06:00 APTT 69.2 Seconds (25.1-36.5) H 11/01/17 09:00 Assessment and Plan - Assessment and Plan (Free Text) Assessment: This is a 62yo female with past medical history of anxiety, vertigo and mild cognitive impairment who came to ED for dizziness with nausea and vomiting x 1 day found to have new onset a.fib with RVR A.fib with RVR new onset - rate controlled - Cardio consulted - Pt started on heparin drip - Troponin <0.01, .03, .12, .13 - Echo pending - TSH WNL - Trigl: 127, chol: 169, LDL 104, HDL 45 - A1C pending - Patient will be on Cardizem drip - hold is BP <90/40 - If BP is low will consider giving Digoxin 0.25 IVP - Start ASA 81 daily for CHADSVASc of 1 UTI - E. Faecalis - Macrobid for 10 days - Patient asymptomatic Hypotension - Can be secondary to a.fib versus inflammatory process versus dehydration from nausea/vomiting/diarrhea - afebrile, no leukocytosis - CXR showed no active disease - U/A negative - C diff pending - NS@100 Hx of Vertigo and dizziness - Meclizine prn - Zofran prn nausea - Fall precaution - Aspiration precaution - NPO - CT head pending - Neuro on consult: Dr. Yuan Worthy, recommends home with Meclizine Hx of Anxiety - Continue home Xanax prn -one dose ativan .5 given Nausea and vomiting -CT head pending -zofran -NPO -GI consulted, Marguerite, follow recs GI ppx: Protonix DVT ppx: Heparin drip Dispo: Patient should be discharged tomorrow pending home with services from social work. <Fara Bang - Last Filed: 11/01/17 19:04> Objective - Vital Signs/Intake and Output Vital Signs (last 24 hours): Temp Pulse Resp BP Pulse Ox 98.6 F 96 H 18 92/51 L 96 11/01/17 18:00 11/01/17 18:10 11/01/17 18:00 11/01/17 18:10 11/01/17 09:33 Intake and Output: 11/01/17 11/01/17 06:59 18:59 Intake Total 2894 780 Output Total 500 250 Balance 2394 530 - Medications Medications: Current Medications Acetaminophen (Tylenol 325mg Tab) 650 mg PO Q6H PRN PRN Reason: Fever >100.4 F Last Admin: 10/31/17 01:25 Dose: 650 mg Alprazolam (Xanax) 0.25 mg PO BID PRN; Protocol PRN Reason: Anxiety Stop: 11/06/17 10:36 Last Admin: 10/30/17 21:09 Dose: 0.25 mg Aspirin (Ecotrin) 81 mg PO 0800 [facility] Last Admin: 11/01/17 08:40 Dose: 81 mg Digoxin (Lanoxin) 0.25 mg PO 1400 [facility] Last Admin: 11/01/17 15:05 Dose: 0.25 mg Meclizine HCl (Antivert) 25 mg PO BID PRN PRN Reason: Dizziness Metoclopramide HCl (Reglan) 10 mg IVP ACHS [facility] Last Admin: 11/01/17 16:30 Dose: 10 mg Nitrofurantoin Macrocrystals (Macrobid) 100 mg PO Q12 [facility] PRN Reason: Protocol Stop: 11/08/17 22:01 Ondansetron HCl (Zofran Inj) 4 mg IVP Q6H PRN PRN Reason: Nausea/Vomiting Last Admin: 10/31/17 07:16 Dose: 4 mg Pantoprazole Sodium (Protonix Inj) 40 mg IVP Q12 [facility] Last Admin: 11/01/17 09:27 Dose: 40 mg Sotalol HCl (Betapace) 40 mg PO BID [facility] Last Admin: 11/01/17 18:10 Dose: 40 mg - Labs Labs: 11/01/17 05:30 11/01/17 05:30 PT 11.3 SECONDS (9.4-12.5) 10/30/17 06:00 INR 0.98 (0.93-1.08) 10/30/17 06:00 APTT 69.2 Seconds (25.1-36.5) H 11/01/17 09:00 Attending/Attestation - Attestation I have personally seen and examined this patient.: Yes I have fully participated in the care of the patient.: Yes I have reviewed all pertinent clinical information, including history, physical exam and plan: Yes Notes (Text): I have seen and examined the patient at bedside. Agree with the above note with the following additions/ exceptions: Briefly this is 62 year old female with history of vertigo, anxiety who was brought for evaluation of nausea, vomiting and found to have rapid atrial fibrillation. HR has improved. CHADSVASC is 1. Continue aspirin, sotalol and digoxin. Echo pending. As patient is not nauseous , Will advance the diet. PT eval pending. Continue meclizine. Upon discharge patient will follow up with Dr Powell. Dr Fara Bang
[2017-11-01] MEDS: Digoxin 250 mcg (0.25 mg) Tab PO SCH (15:05)
--- NOTE | 2017-11-01 16:36 | CON ---
DATE: 11/01/2017 NEUROLOGY CONSULTATION CHIEF COMPLAINT: Dizziness. HISTORY OF PRESENT ILLNESS: This is a 62-year-old woman with past medical history of anxiety, vertigo, mild cognitive impairment, history of chronic vertigo in the past, who presented to the ER for dizziness in terms of spinning sensation of the room as well as lightheadedness along with nausea and vomiting for the past day. She was found to have new-onset AFib with RVR, which Cardiology is on board and recommended baby aspirin and has currently an echocardiogram pending. She was also slightly hypotensive when she came in, likely from underlying volume depletion where she has been hydrated. Currently, since she was given dexamethasone 4 mg x1 dose, her vertigo-like symptoms improved along with the meclizine. No acute events overnight. CAT scan of the head showed no acute intracranial abnormality. PAST MEDICAL HISTORY: History of chronic vertigo, cognitive impairment, anxiety. FAMILY HISTORY: Noncontributory. SOCIAL HISTORY: No illicit drug use, smoking, or EtOH abuse. REVIEW OF SYSTEMS: A 14-point review of systems negative except as per the HPI. ALLERGIES: OXYCODONE, CODEINE. MEDICATIONS: Reviewed by nurse's reconciliation sheet. PHYSICAL EXAMINATION: VITAL SIGNS: Temperature afebrile, pulse rate of 80, blood pressure of 105/64, respiratory rate of 18, oxygen saturation 99% on room air. GENERAL: The patient is sitting up in the bed, in no acute distress. HEENT: Head atraumatic and normocephalic. PERRLA. Extraocular muscles are intact. NECK: Supple. No JVD. No adenopathy noted. LUNGS: Clear to auscultation. No adventitious sounds. HEART: S1 and S2, irregular rate and rhythm. No murmurs, rubs, or gallops. ABDOMEN: Soft, nontender, nondistended. Bowel sounds present. EXTREMITIES: No clubbing, no cyanosis. Peripheral pulses are 2+ felt bilaterally. NEUROLOGIC: The patient is alert, oriented to person, place, month, and year. Speech is fluent without any errors. Recall after 5 minutes is 1/3. Poor attention span. Slow thought process. Cranial nerves II through XII intact. Motor: Moves all extremities equally. No pronator drift seen. Sensory: Light touch, pinprick, proprioception, and vibration intact. DTRs are 2+ throughout. Coordination: [id number] intact. No dysmetria noted. Gait is deferred for now. LABORATORY DATA: Sodium is 138, potassium 4.1, chloride of 111, carbon dioxide 19, BUN of 10, creatinine 0.6, random glucose 95. ASSESSMENT AND PLAN: This is a 62-year-old woman with history of anxiety, vertigo, and mild cognitive impairment, who presented with dizziness in terms of nausea and vomiting for the past 1 day, found to have a new onset of atrial fibrillation with rapid ventricular response, which Cardiology is on board and put her on Cardizem, had also a low blood pressure of 90s/40s, is volume depleted. In addition, a spinning sensation of the room with vertiginous aspects, status post dexamethasone 4 mg IV push x1 dose, which had helped her vertigo. She likely had some mild gastroenteritis per GI. At this time, her dizziness/vertigo could be secondary to transient cerebral hypoperfusion from underlying dehydration vertigo, benign positional, superimposed underlying new-onset atrial fibrillation with rapid ventricular response. At this time, recommend: 1. Keep her systolic blood pressure above 120 to 130s and diastolic 70 to 80s. 2. Continue with hydration. 3. Avoid sudden movements. Continue with meclizine 25 mg p.o. t.i.d. and Zofran for nausea. 4. Continue with Xanax 0.5 mg for underlying anxiety and continue with current present medical management. No further neurological workup needed at this time. We will recommend outpatient vestibular therapy if vertigo continues. Cortes Worthy MD
--- NOTE | 2017-11-01 17:03 | PN ---
DATE: 11/01/2017 SUBJECTIVE: The patient feels much better. She denies any further nausea or vomiting. She denies abdominal pain. She denies any dizziness, vertigo or lightheadedness. She denies any palpitations. PHYSICAL EXAMINATION: VITAL SIGNS: Reveal temperature of 97.5, blood pressure 92/51, heart rate 96. HEENT: Reveal sclerae to be white. Conjunctivae pink. NECK: Supple. CHEST: Lungs are clear. HEART: Exam reveals regular rate and rhythm. ABDOMEN: Soft, nontender. No mass. EXTREMITIES: Show no edema. LABORATORY DATA: Reveal hemoglobin 10.3, white blood cell count 8.0. Chemistries reveal chloride of 111, bicarb of 19. AST, ALT, alk phos are all normal. IMPRESSION: 1. Intractable vomiting, most likely secondary to vertigo. 2. Resolving gastroenteritis. 3. Paroxysmal atrial fibrillation, currently in normal sinus rhythm. 4. Anemia. 5. Elevated troponin, rule out [id number] myocardial infarction. RECOMMENDATIONS 1. We will advance to a low-fat, low residue diet. 2. Continue IV Reglan. 3. Cardiology followup. 4. The patient is stable from GI standpoint. Dany Everett MD
[2017-11-02 06:20] LABS: BASO # 0.01 K/mm3 (0.0-2.0); BASO % 0.2 % (0.0-3.0); EOS # 0.2 (0.0-0.7); EOS % 2.7 % (1.5-5.0); GRAN # 2.65 (1.4-6.5); HEMOGLOBIN 10.2 g/dL (12.0-16.0); LYMPH # 2.3 (1.2-3.4); LYMPH % 38.3 % (22.0-35.0); MEAN CELL VOLUME 89.6 fl (80.0-105.0); MEAN CORPUSCULAR HEMOGLOBIN 29.4 pg (25.0-35.0); MEAN CORPUSCULAR HGB CONC 32.8 g/dl (31.0-37.0); MEAN PLATELET VOLUME 9.5 fl (7.0-11.0); MONO # 0.8 (0.1-0.6); MONO % 13.8 % (1.0-6.0); RBC 3.47 10^6/uL (3.5-6.1); RED CELL DISTRIBUTION WIDTH 13.8 % (11.5-14.5); WHITE BLOOD COUNT 5.9 10^3/ul (4.5-11.0)
[2017-11-02 06:46] LABS: ALB/GLOB RATIO 1.3 (1.1-1.8); ALBUMIN 2.9 g/dL (3.0-4.8); ALT/SGPT 23 U/L (7-56); AST/SGOT 16 U/L (14-36); BLOOD UREA NITROGEN 12 mg/dL (7-21); GFR AFRICAN-AMERICAN > 60; GFR NON-AFRICAN AMERICAN > 60
[2017-11-02] MEDS ORDERED: Potassium Chloride 20 mEq ER Tab PO ONE (07:30)
--- NOTE | 2017-11-02 09:13 | CP.PCM.PN ---
Subjective - Date & Time of Evaluation Date of Evaluation: 11/02/17 Time of Evaluation: 07:00 - Subjective Subjective: Stable on 2R. No CP or SOB. Remains RSR. V/S noted: RSR 127/79 PE: Lungs: clear Cor.: S1S2 Abd.: soft Ext.: no edema Neuro.: alert I/O = 900/250 recorded Labs noted: K+ = 3.5 Echo done: prelim: Nl LV. See full report ECG: RSR, NSSTW changes, QTc = 449 Objective - Vital Signs/Intake and Output Vital Signs (last 24 hours): Temp Pulse Resp BP Pulse Ox 97.8 F 79 20 127/79 73 L 11/02/17 06:00 11/02/17 06:00 11/02/17 06:00 11/02/17 06:00 11/02/17 06:00 Intake and Output: 11/02/17 11/02/17 06:59 18:59 Intake Total 120 Balance 120 - Medications Medications: Current Medications Acetaminophen (Tylenol 325mg Tab) 650 mg PO Q6H PRN PRN Reason: Fever >100.4 F Last Admin: 11/01/17 22:09 Dose: 650 mg Alprazolam (Xanax) 0.25 mg PO BID PRN; Protocol PRN Reason: Anxiety Stop: 11/06/17 10:36 Last Admin: 11/02/17 01:05 Dose: 0.25 mg Aspirin (Ecotrin) 81 mg PO 0800 [facility] Last Admin: 11/02/17 08:25 Dose: 81 mg Digoxin (Lanoxin) 0.25 mg PO 1400 [facility] Last Admin: 11/01/17 15:05 Dose: 0.25 mg Meclizine HCl (Antivert) 25 mg PO BID PRN PRN Reason: Dizziness Metoclopramide HCl (Reglan) 10 mg IVP ACHS [facility] Last Admin: 11/02/17 08:25 Dose: 10 mg Nitrofurantoin Macrocrystals (Macrobid) 100 mg PO Q12 [facility] PRN Reason: Protocol Stop: 11/08/17 22:01 Last Admin: 11/01/17 22:34 Dose: 100 mg Ondansetron HCl (Zofran Inj) 4 mg IVP Q6H PRN PRN Reason: Nausea/Vomiting Last Admin: 10/31/17 07:16 Dose: 4 mg Pantoprazole Sodium (Protonix Inj) 40 mg IVP Q12 [facility] Last Admin: 11/01/17 21:58 Dose: 40 mg Sotalol HCl (Betapace) 40 mg PO BID [facility] Last Admin: 11/01/17 18:10 Dose: 40 mg - Labs Labs: 11/02/17 06:00 11/02/17 06:00 PT 11.3 SECONDS (9.4-12.5) 10/30/17 06:00 INR 0.98 (0.93-1.08) 10/30/17 06:00 APTT 69.2 Seconds (25.1-36.5) H 11/01/17 09:00 Assessment and Plan - Assessment and Plan (Free Text) Assessment: Weakness, Nausea, Vomiting PAF Minimally elevated 3rd troponin Vertigo by hx. H/O Back surgery, Jaw surgery Diverticulosis Hysterectomy Hydrocephalus in childhood Plan: Continue sotolol 40 BID and digoxin 0.25 daily Check ECG/QTc today. [id number] score= 1. ASA therapy. Nuclear stress test tomorrow As per GI, Neuro. and Medical Team OOB
[2017-11-02] MEDS: Magnesium Oxide 400 mg Tab UD PO SCH (09:35)
--- NOTE | 2017-11-02 10:37 | CARD ---
APPROVED REPORT EXAM: Two-dimensional and M-mode echocardiogram with Doppler and color Doppler. Other Information Quality : AverageRhythm : INDICATION Atrial Fibrillation 2D DIMENSIONS Left Atrium (2D)4.0 (1.6-4.0cm)IVSd1.1 (0.7-1.1cm) LVDd3.4 (3.9-5.9cm)PWd1.1 (0.7-1.1cm) LVDs2.3 (2.5-4.0cm)FS (%) 32.0 % LVEF (%)61.0 (>50%) M-Mode DIMENSIONS Aortic Root2.70 (2.2-3.7cm)Aortic Cusp Exc.1.90 (1.5-2.0cm) Aortic Valve AoV Peak Fysjikjq217.0cm/s Mitral Valve MV E Pqvjehxp94.5cm/sMV A Zzgisbnt09.1cm/sE/A ratio1.2 TDI E/Lateral E'0.0E/Medial E'0.0 Tricuspid Valve TR Peak Vtvuygdm635qb/sRAP [id number] Peak Gr.39mmHg NLMO19isRv LEFT VENTRICLE The left ventricle is normal size. There is normal left ventricular wall thickness. The left ventricular function is normal. The left ventricular ejection fraction is within the normal range. There is normal LV segmental wall motion. RIGHT VENTRICLE The right ventricle is normal size. ATRIA The left atrium size is normal. The right atrium size is normal. The interatrial septum is intact with no evidence for an atrial septal defect. AORTIC VALVE The aortic valve is normal in structure. MITRAL VALVE The mitral valve is normal in structure. Mitral regurgitation is mild. TRICUSPID VALVE The tricuspid valve is normal in structure. There is mild tricuspid regurgitation. PULMONIC VALVE The pulmonic valve is not well visualized. GREAT VESSELS The aortic root is normal in size. PERICARDIAL EFFUSION There is no pleural effusion. <Conclusion> The left ventricle is normal size. There is normal left ventricular wall thickness. The left ventricular function is normal. Mitral regurgitation is mild.
--- NOTE | 2017-11-02 10:44 | CARD ---
APPROVED REPORT EKG Measurement Heart [id number] <Conclusion> Normal sinus rhythm Nonspecific T wave abnormality Abnormal ECG
--- NOTE | 2017-11-02 13:39 | PN ---
DATE: 11/02/2017 SUBJECTIVE: The patient is sitting in a bed comfortable. She denies any palpitations, nausea, vomiting, abdominal pain, dizziness or lightheadedness. PHYSICAL EXAMINATION: VITAL SIGNS: Reveal temperature of 97.8, blood pressure 127/79, heart rate of 96. HEENT: Revealed sclerae to be white. Conjunctivae pink. NECK: Supple. CHEST: Lungs are clear. HEART: Reveals a regular rate and rhythm. ABDOMEN: Soft, nontender. No mass. EXTREMITIES: Show no edema. LABORATORY DATA: Reveals white blood cell count 5.9, hemoglobin 10.2. Potassium of 3.5. AST, ALT, alk phos were all normal. IMPRESSION: 1. Intractable nausea and vomiting, most likely secondary to vertigo. 2. Resolving gastroenteritis. 3. Paroxysmal atrial fibrillation. 4. Elevated troponin, rule out [id number] myocardial infarction. RECOMMENDATIONS: 1. Continue meclizine. 2. Continue Reglan. 3. Continue PPI. 4. The patient is scheduled for a stress test in the morning. Dany Everett MD
[2017-11-02] MEDS: Digoxin 250 mcg (0.25 mg) Tab PO SCH (13:45)
--- NOTE | 2017-11-02 17:37 | CP.PCM.PN ---
<FayeFlorencio - Last Filed: 11/02/17 17:38> Subjective - Date & Time of Evaluation Date of Evaluation: 11/02/17 Time of Evaluation: 17:28 - Subjective Subjective: Medicine progress note: Dr. Marybeth Bang Patient seen and examined at bedside. Patient does not have any complaints at this time. Objective - Vital Signs/Intake and Output Vital Signs (last 24 hours): Temp Pulse Resp BP Pulse Ox 98.2 F 75 18 115/74 73 L 11/02/17 12:00 11/02/17 12:00 11/02/17 12:00 11/02/17 12:00 11/02/17 06:00 Intake and Output: 11/02/17 11/02/17 06:59 18:59 Intake Total 120 300 Balance 120 300 - Medications Medications: Current Medications Acetaminophen (Tylenol 325mg Tab) 650 mg PO Q6H PRN PRN Reason: Fever >100.4 F Last Admin: 11/01/17 22:09 Dose: 650 mg Alprazolam (Xanax) 0.25 mg PO BID PRN; Protocol PRN Reason: Anxiety Stop: 11/06/17 10:36 Last Admin: 11/02/17 01:05 Dose: 0.25 mg Aspirin (Ecotrin) 81 mg PO 0800 [facility] Last Admin: 11/02/17 08:25 Dose: 81 mg Digoxin (Lanoxin) 0.25 mg PO 1400 [facility] Last Admin: 11/02/17 13:45 Dose: 0.25 mg Magnesium Oxide (Mag-Ox) 400 mg PO DAILY [facility] Last Admin: 11/02/17 09:35 Dose: 400 mg Meclizine HCl (Antivert) 25 mg PO BID PRN PRN Reason: Dizziness Metoclopramide HCl (Reglan) 10 mg IVP ACHS [facility] Last Admin: 11/02/17 12:46 Dose: 10 mg Nitrofurantoin Macrocrystals (Macrobid) 100 mg PO Q12 [facility] PRN Reason: Protocol Stop: 11/08/17 22:01 Last Admin: 11/02/17 09:34 Dose: 100 mg Ondansetron HCl (Zofran Inj) 4 mg IVP Q6H PRN PRN Reason: Nausea/Vomiting Last Admin: 10/31/17 07:16 Dose: 4 mg Pantoprazole Sodium (Protonix Ec Tab) 40 mg PO Q12 [facility] Sotalol HCl (Betapace) 40 mg PO BID [facility] Last Admin: 11/02/17 09:36 Dose: 40 mg - Labs Labs: 11/02/17 06:00 11/02/17 06:00 PT 11.3 SECONDS (9.4-12.5) 10/30/17 06:00 INR 0.98 (0.93-1.08) 10/30/17 06:00 APTT 69.2 Seconds (25.1-36.5) H 11/01/17 09:00 - Constitutional Appears: Well - Head Exam Head Exam: ATRAUMATIC, NORMAL INSPECTION, NORMOCEPHALIC - Eye Exam Eye Exam: EOMI, Normal appearance, PERRL Pupil Exam: NORMAL ACCOMODATION, PERRL - ENT Exam ENT Exam: Mucous Membranes Moist, Normal Exam - Neck Exam Neck Exam: Full ROM, Normal Inspection. absent: Lymphadenopathy - Respiratory Exam Respiratory Exam: Clear to Ausculation Bilateral, NORMAL BREATHING PATTERN - Cardiovascular Exam Cardiovascular Exam: REGULAR RHYTHM, +S1, +S2. absent: Murmur - GI/Abdominal Exam GI & Abdominal Exam: Soft, Normal Bowel Sounds. absent: Tenderness - Extremities Exam Extremities Exam: Full ROM, Normal Capillary Refill, Normal Inspection. absent : Joint Swelling, Pedal Edema - Back Exam Back Exam: NORMAL INSPECTION - Neurological Exam Neurological Exam: Alert, Awake, CN II-XII Intact, Normal Gait, Oriented x3 - Psychiatric Exam Psychiatric exam: Normal Affect, Normal Mood - Skin Skin Exam: Dry, Intact, Normal Color, Warm Assessment and Plan - Assessment and Plan (Free Text) Assessment: This is a 62yo female with past medical history of anxiety, vertigo and mild cognitive impairment who came to ED for dizziness with nausea and vomiting x 1 day found to have new onset a.fib with RVR A. Fib with RVR new onset - rate controlled - Cardio consulted: Dr. Morrow - nuclear stress tomorrow - Controlled with dig, sotalol - Echo: Normal study; EF 61% - TSH WNL - Trigl: 127, chol: 169, LDL 104, HDL 45 - Start ASA 81 daily for CHADSVASc of 1 - EKG this morning shows NSR 81 UTI - E. Faecalis - Macrobid for 10 days - Patient asymptomatic Hypotension - Can be secondary to a.fib versus inflammatory process versus dehydration from nausea/vomiting/diarrhea - afebrile, no leukocytosis - CXR showed no active disease - U/A negative - C diff negative - NS@100 Hx of Vertigo and dizziness - Meclizine prn - Zofran prn nausea - Fall precaution - Aspiration precaution - NPO - CT head pending - Neuro on consult: Dr. Yuan Worthy, recommends home with Meclizine Hx of Anxiety - Continue home Xanax prn Nausea and vomiting - CT Head: no acute intracranial process - Has been advanced to heart healthy diet - GI consulted, Marguerite, follow recs GI ppx: Protonix DVT ppx: Heparin drip Dispo: Patient should be discharged tomorrow after nuclear stress test and pending home with services from social work <Fara Bang - Last Filed: 11/03/17 18:08> Objective - Vital Signs/Intake and Output Vital Signs (last 24 hours): Temp Pulse Resp BP Pulse Ox 97.8 F 80 18 109/70 95 11/03/17 17:43 11/03/17 17:43 11/03/17 17:43 11/03/17 17:43 11/03/17 06:00 Intake and Output: 11/03/17 11/03/17 06:59 18:59 Intake Total 120 Output Total 300 Balance -180 - Medications Medications: Current Medications Acetaminophen (Tylenol 325mg Tab) 650 mg PO Q6H PRN PRN Reason: Fever >100.4 F Last Admin: 11/01/17 22:09 Dose: 650 mg Alprazolam (Xanax) 0.25 mg PO BID PRN; Protocol PRN Reason: Anxiety Stop: 11/06/17 10:36 Last Admin: 11/02/17 01:05 Dose: 0.25 mg Aspirin (Ecotrin) 81 mg PO 0800 [facility] Last Admin: 11/03/17 12:48 Dose: 81 mg Digoxin (Lanoxin) 0.25 mg PO 1400 [facility] Last Admin: 11/03/17 12:48 Dose: 0.25 mg Magnesium Oxide (Mag-Ox) 400 mg PO DAILY [facility] Last Admin: 11/03/17 12:48 Dose: 400 mg Meclizine HCl (Antivert) 25 mg PO BID PRN PRN Reason: Dizziness Last Admin: 11/03/17 03:13 Dose: 25 mg Metoclopramide HCl (Reglan) 10 mg IVP ACHS [facility] Last Admin: 11/03/17 12:49 Dose: 10 mg Nitrofurantoin Macrocrystals (Macrobid) 100 mg PO Q12 [facility] PRN Reason: Protocol Stop: 11/08/17 22:01 Last Admin: 11/03/17 09:00 Dose: Not Given Ondansetron HCl (Zofran Inj) 4 mg IVP Q6H PRN PRN Reason: Nausea/Vomiting Last Admin: 11/03/17 03:13 Dose: 4 mg Pantoprazole Sodium (Protonix Ec Tab) 40 mg PO Q12 [facility] Last Admin: 11/03/17 12:37 Dose: Not Given Sotalol HCl (Betapace) 40 mg PO BID [facility] Last Admin: 11/03/17 08:00 Dose: Not Given - Labs Labs: 11/03/17 06:00 11/03/17 06:00 PT 11.3 SECONDS (9.4-12.5) 10/30/17 06:00 INR 0.98 (0.93-1.08) 10/30/17 06:00 APTT 69.2 Seconds (25.1-36.5) H 11/01/17 09:00 Attending/Attestation - Attestation I have personally seen and examined this patient.: Yes I have fully participated in the care of the patient.: Yes I have reviewed all pertinent clinical information, including history, physical exam and plan: Yes Notes (Text): I have seen and examined the patient at bedside. Agree with the above note with the following additions/ exceptions: Briefly this is 62 year old female with history of vertigo, anxiety who was brought for evaluation of nausea, vomiting and found to have rapid atrial fibrillation. HR has improved. CHADSVASC is 1. Continue aspirin, sotalol and digoxin. Echo pending. Patient is scheduled for stress test. PT recommended [facility] however patient declined services. Continue meclizine. Upon discharge patient will follow up with Dr Powell. Dr Fara Bang
[2017-11-02] MEDS: Pantoprazole 40 mg EC Tab PO SCH (21:49)
[2017-11-03 01:14] VITALS: O2SAT 95
[2017-11-03 06:16] LABS: BASO # 0.01 K/mm3 (0.0-2.0); BASO % 0.2 % (0.0-3.0); EOS # 0.3 (0.0-0.7); EOS % 4.7 % (1.5-5.0); GRAN # 2.73 (1.4-6.5); GRAN % 47.7 % (50.0-68.0); HEMOGLOBIN 11.3 g/dL (12.0-16.0); LYMPH % 34.8 % (22.0-35.0); MEAN CELL VOLUME 89.3 fl (80.0-105.0); MEAN CORPUSCULAR HEMOGLOBIN 28.9 pg (25.0-35.0); MEAN CORPUSCULAR HGB CONC 32.4 g/dl (31.0-37.0); MEAN PLATELET VOLUME 9.5 fl (7.0-11.0); MONO # 0.7 (0.1-0.6); MONO % 12.6 % (1.0-6.0); RBC 3.91 10^6/uL (3.5-6.1); RED CELL DISTRIBUTION WIDTH 13.6 % (11.5-14.5); WHITE BLOOD COUNT 5.7 10^3/ul (4.5-11.0)
[2017-11-03 07:19] LABS: ALB/GLOB RATIO 1.4 (1.1-1.8); ALBUMIN 3.2 g/dL (3.0-4.8); ALT/SGPT 23 U/L (7-56); AST/SGOT 14 U/L (14-36); BLOOD UREA NITROGEN 8 mg/dL (7-21); CALCIUM 9.4 mg/dL (8.4-10.5); GFR AFRICAN-AMERICAN > 60; GFR NON-AFRICAN AMERICAN > 60
[2017-11-03] MEDS ORDERED: Aminophylline 25 mg/ml Inj ONE (09:04)
[2017-11-03] MEDS: Pantoprazole 40 mg EC Tab PO SCH (12:37)
[2017-11-03] MEDS: Digoxin 250 mcg (0.25 mg) Tab PO SCH (12:48)
[2017-11-03] MEDS: Magnesium Oxide 400 mg Tab UD PO SCH (12:48)
[2017-11-03 12:50] VITALS: PULSE 83
--- NOTE | 2017-11-03 16:01 | PN ---
DATE: 11/03/2017 SUBJECTIVE: The patient is comfortable. She denies any dizziness, lightheadedness, nausea, vomiting, or chest pain. She underwent a myocardial stress test this morning. OBJECTIVE: VITAL SIGNS: Reveal temperature of 98, blood pressure 126/77, heart rate 76. HEENT: Reveal sclerae to be white. Conjunctivae pink. NECK: Supple. CHEST: Lungs are clear. HEART: Reveals regular rate and rhythm. ABDOMEN: Soft, nontender. No mass. EXTREMITIES: Show no edema. LABORATORY DATA: Reveals white blood cell count 5.7, hemoglobin 11.3. BUN 8 and creatinine 0.6. IMPRESSION: 1. Intractable vomiting secondary to vertigo. 2. New onset paroxysmal atrial fibrillation. 3. Elevated troponin. RECOMMENDATIONS: 1. Await thallium stress test results. 2. Continue meclizine. She is stable from a GI standpoint. Dany Everett MD
--- NOTE | 2017-11-03 16:32 | CP.PCM.DIS ---
<Florencio Mckinney - Last Filed: 11/03/17 18:19> Provider - Provider Date of Admission: 10/30/17 09:09 Attending physician: Fara Bang MD Primary care physician: Rohit Quiroga MD Consults: Dr. Morrow - Cardiology Dr. Carr - Neurology Time Spent in preparation of Discharge (in minutes): 45 Hospital Course - Lab Results Lab Results: Micro Results 10/30/17 11:21 Urine Urine Culture - Final Enterococcus Faecalis Most Recent Lab Values WBC 5.7 10^3/ul (4.5-11.0) 11/03/17 06:00 RBC 3.91 10^6/uL (3.5-6.1) 11/03/17 06:00 Hgb 11.3 g/dL (12.0-16.0) L 11/03/17 06:00 Hct 34.9 % (36.0-48.0) L 11/03/17 06:00 MCV 89.3 fl (80.0-105.0) 11/03/17 06:00 MCH 28.9 pg (25.0-35.0) 11/03/17 06:00 MCHC 32.4 g/dl (31.0-37.0) 11/03/17 06:00 RDW 13.6 % (11.5-14.5) 11/03/17 06:00 Plt Count 205 10^3/uL (120.0-450.0) 11/03/17 06:00 MPV 9.5 fl (7.0-11.0) 11/03/17 06:00 Gran % 47.7 % (50.0-68.0) L 11/03/17 06:00 Lymph % (Auto) 34.8 % (22.0-35.0) 11/03/17 06:00 [place] % (Auto) 12.6 % (1.0-6.0) H 11/03/17 06:00 Eos % (Auto) 4.7 % (1.5-5.0) 11/03/17 06:00 Baso % (Auto) 0.2 % (0.0-3.0) 11/03/17 06:00 Gran # 2.73 (1.4-6.5) 11/03/17 06:00 Lymph # (Auto) 2.0 (1.2-3.4) 11/03/17 06:00 [place] # (Auto) 0.7 (0.1-0.6) H 11/03/17 06:00 Eos # (Auto) 0.3 (0.0-0.7) 11/03/17 06:00 Baso # (Auto) 0.01 K/mm3 (0.0-2.0) 11/03/17 06:00 PT 11.3 SECONDS (9.4-12.5) 10/30/17 06:00 INR 0.98 (0.93-1.08) 10/30/17 06:00 APTT 69.2 Seconds (25.1-36.5) H 11/01/17 09:00 Sodium 140 mmol/L (132-148) 11/03/17 06:00 Potassium 3.8 mmol/L (3.6-5.0) 11/03/17 06:00 Chloride 105 mmol/L (98-107) 11/03/17 06:00 Carbon Dioxide 29 mmol/L (21-33) 11/03/17 06:00 Anion Gap 10 (10-20) 11/03/17 06:00 BUN 8 mg/dL (7-21) 11/03/17 06:00 Creatinine 0.6 mg/dl (0.7-1.2) L 11/03/17 06:00 Est GFR ( Amer) > 60 11/03/17 06:00 Est GFR (Non-Af Amer) > 60 11/03/17 06:00 Random Glucose 93 mg/dL (70-110) 11/03/17 06:00 Hemoglobin A1c 5.5 % (4.2-6.5) 10/30/17 10:00 Calcium 9.4 mg/dL (8.4-10.5) 11/03/17 06:00 Phosphorus 3.8 mg/dL (2.5-4.5) 11/03/17 06:00 Magnesium 1.8 mg/dL (1.7-2.2) 11/03/17 06:00 Total Bilirubin 0.5 mg/dL (0.2-1.3) 11/03/17 06:00 AST 14 U/L (14-36) 11/03/17 06:00 ALT 23 U/L (7-56) 11/03/17 06:00 Alkaline Phosphatase 69 U/L (38-126) 11/03/17 06:00 Lactate Dehydrogenase 264 U/L (333-699) L 10/30/17 06:00 Total Creatine Kinase 27 U/L (35-230) L 10/30/17 06:00 Troponin I 0.13 ng/mL H* 10/31/17 06:30 Total Protein 5.6 g/dL (5.8-8.3) L 11/03/17 06:00 Albumin 3.2 g/dL (3.0-4.8) 11/03/17 06:00 Globulin 2.4 gm/dL 11/03/17 06:00 Albumin/Globulin Ratio 1.4 (1.1-1.8) 11/03/17 06:00 Triglycerides 127 mg/dL (35-160) 10/30/17 10:00 Cholesterol 169 mg/dL (130-200) 10/30/17 10:00 LDL Cholesterol Direct 104 mg/dL (0-129) 10/30/17 10:00 HDL Cholesterol 45 mg/dL (29-60) 10/30/17 10:00 Lipase 40 U/L (23-300) 10/30/17 05:42 Free T4 1.29 ng/dL (0.78-2.19) 10/30/17 09:45 TSH 3rd Generation 2.39 mIU/mL (0.46-4.68) 10/30/17 09:45 Urine Color Yellow (YELLOW) 10/30/17 10:20 Urine Appearance Clear (CLEAR) 10/30/17 10:20 Urine pH 6.0 (4.7-8.0) 10/30/17 10:20 Ur Specific [place] >= 1.030 (1.005-1.035) 10/30/17 10:20 Urine Protein Negative mg/dL (<30 mg/dL) 10/30/17 10:20 Urine Glucose (UA) Negative mg/dL (NEGATIVE) 10/30/17 10:20 Urine Ketones 15 mg/dL (NEGATIVE) H 10/30/17 10:20 Urine Blood Negative (NEGATIVE) 10/30/17 10:20 Urine Nitrate Negative (NEGATIVE) 10/30/17 10:20 Urine Bilirubin Negative (NEGATIVE) 10/30/17 10:20 Urine Urobilinogen 0.2 E.U./dL (<1 E.U./dL) 10/30/17 10:20 Ur Leukocyte Esterase Negative Gayle/uL (NEGATIVE) 10/30/17 10:20 - Hospital Course Hospital Course: 62 year old female came in with a bout of nausea and vomiting. On further investigation, patient was found to be in atrial fibrillation with rapid ventricular response. Patient was cardioverted back into normal sinus rhythm and started on cardizem drip. Patient's troponins were also found to be elevated, at which point she was placed on a heparin drip. Patient was also treated by Dr. Carr for her dizziness and nausea with Meclizine. Patient underwent a nuclear stress test with Dr. Mcdermott on day of discharge which showed no ischemia. As such, patient was deemed stable for discharge. Assessment and Plan on Day of Discharge: This is a 62yo female with past medical history of anxiety, vertigo and mild cognitive impairment who came to ED for dizziness with nausea and vomiting x 1 day found to have new onset a.fib with RVR A. Fib with RVR new onset - rate and rhythm controlled - Cardio consulted: Dr. Morrow - nuclear stress tomorrow - Controlled with dig, sotalol - Echo: Normal study; EF 61% - TSH WNL - Trigl: 127, chol: 169, LDL 104, HDL 45 - Start ASA 81 daily for CHADSVASc of 1 - EKG this morning shows NSR 81 UTI - E. Faecalis - Macrobid for 10 days - Patient asymptomatic Hypotension - Can be secondary to a.fib versus inflammatory process versus dehydration from nausea/vomiting/diarrhea - afebrile, no leukocytosis - CXR showed no active disease - U/A negative - C diff negative - NS@100 Hx of Vertigo and dizziness - Meclizine prn - Zofran prn nausea - Fall precaution - Aspiration precaution - NPO - CT head pending - Neuro on consult: Dr. Yuan Worthy, recommends home with Meclizine Hx of Anxiety - Continue home Xanax prn Nausea and vomiting - CT Head: no acute intracranial process - Has been advanced to heart healthy diet - GI consulted, Marguerite, follow recs Discharge Exam - Head Exam Head Exam: ATRAUMATIC, NORMAL INSPECTION, NORMOCEPHALIC - Eye Exam Eye Exam: EOMI, Normal appearance, PERRL Pupil Exam: NORMAL ACCOMODATION, PERRL - GI/Abdominal Exam GI & Abdominal Exam: Normal Bowel Sounds - Rectal Exam Rectal Exam: NORMAL INSPECTION - Neurological Exam Neurological exam: Alert, CN II-XII Intact, Normal Gait, Oriented x3, Reflexes Normal - Psychiatric Exam Psychiatric exam: Normal Affect, Normal Mood - Skin Skin Exam: Dry, Intact, Normal Color, Warm Discharge Plan - Discharge Medications Prescriptions: Aspirin [Ecotrin] 81 mg PO 0800 #60 tabec Digoxin [Lanoxin] 0.25 mg PO DAILY #30 tablet Meclizine [Meclizine*] 25 mg PO Q6 #20 tab Nitrofurantoin Macrocrystals [Macrobid] 100 mg PO BID #20 cap Sotalol [Betapace] 40 mg PO BID #60 tab - Follow Up Plan Condition: GOOD Disposition: HOME/ ROUTINE Patient education suggested?: Yes Instructions: Atrial Fibrillation (DC) Additional Instructions: Please follow up with your primary medical doctor within one week Please make sure to get your medical records before you leave the hospital so that you can follow up with a tree faller Should your symptoms return or persist please return to the ED. Referrals: Rohit Quiroga MD [Primary Care Provider] - <Fara Bang - Last Filed: 11/04/17 12:16> Provider - Provider Date of Admission: 10/30/17 09:09 Attending physician: Fara Bang MD Primary care physician: Rohit Quiroga MD Hospital Course - Lab Results Lab Results: Micro Results 10/30/17 11:21 Urine Urine Culture - Final Enterococcus Faecalis Most Recent Lab Values WBC 5.7 10^3/ul (4.5-11.0) 11/03/17 06:00 RBC 3.91 10^6/uL (3.5-6.1) 11/03/17 06:00 Hgb 11.3 g/dL (12.0-16.0) L 11/03/17 06:00 Hct 34.9 % (36.0-48.0) L 11/03/17 06:00 MCV 89.3 fl (80.0-105.0) 11/03/17 06:00 MCH 28.9 pg (25.0-35.0) 11/03/17 06:00 MCHC 32.4 g/dl (31.0-37.0) 11/03/17 06:00 RDW 13.6 % (11.5-14.5) 11/03/17 06:00 Plt Count 205 10^3/uL (120.0-450.0) 11/03/17 06:00 MPV 9.5 fl (7.0-11.0) 11/03/17 06:00 Gran % 47.7 % (50.0-68.0) L 11/03/17 06:00 Lymph % (Auto) 34.8 % (22.0-35.0) 11/03/17 06:00 [place] % (Auto) 12.6 % (1.0-6.0) H 11/03/17 06:00 Eos % (Auto) 4.7 % (1.5-5.0) 11/03/17 06:00 Baso % (Auto) 0.2 % (0.0-3.0) 11/03/17 06:00 Gran # 2.73 (1.4-6.5) 11/03/17 06:00 Lymph # (Auto) 2.0 (1.2-3.4) 11/03/17 06:00 [place] # (Auto) 0.7 (0.1-0.6) H 11/03/17 06:00 Eos # (Auto) 0.3 (0.0-0.7) 11/03/17 06:00 Baso # (Auto) 0.01 K/mm3 (0.0-2.0) 11/03/17 06:00 PT 11.3 SECONDS (9.4-12.5) 10/30/17 06:00 INR 0.98 (0.93-1.08) 10/30/17 06:00 APTT 69.2 Seconds (25.1-36.5) H 11/01/17 09:00 Sodium 140 mmol/L (132-148) 11/03/17 06:00 Potassium 3.8 mmol/L (3.6-5.0) 11/03/17 06:00 Chloride 105 mmol/L (98-107) 11/03/17 06:00 Carbon Dioxide 29 mmol/L (21-33) 11/03/17 06:00 Anion Gap 10 (10-20) 11/03/17 06:00 BUN 8 mg/dL (7-21) 11/03/17 06:00 Creatinine 0.6 mg/dl (0.7-1.2) L 11/03/17 06:00 Est GFR ( Amer) > 60 11/03/17 06:00 Est GFR (Non-Af Amer) > 60 11/03/17 06:00 Random Glucose 93 mg/dL (70-110) 11/03/17 06:00 Hemoglobin A1c 5.5 % (4.2-6.5) 10/30/17 10:00 Calcium 9.4 mg/dL (8.4-10.5) 11/03/17 06:00 Phosphorus 3.8 mg/dL (2.5-4.5) 11/03/17 06:00 Magnesium 1.8 mg/dL (1.7-2.2) 11/03/17 06:00 Total Bilirubin 0.5 mg/dL (0.2-1.3) 11/03/17 06:00 AST 14 U/L (14-36) 11/03/17 06:00 ALT 23 U/L (7-56) 11/03/17 06:00 Alkaline Phosphatase 69 U/L (38-126) 11/03/17 06:00 Lactate Dehydrogenase 264 U/L (333-699) L 10/30/17 06:00 Total Creatine Kinase 27 U/L (35-230) L 10/30/17 06:00 Troponin I 0.13 ng/mL H* 10/31/17 06:30 Total Protein 5.6 g/dL (5.8-8.3) L 11/03/17 06:00 Albumin 3.2 g/dL (3.0-4.8) 11/03/17 06:00 Globulin 2.4 gm/dL 11/03/17 06:00 Albumin/Globulin Ratio 1.4 (1.1-1.8) 11/03/17 06:00 Triglycerides 127 mg/dL (35-160) 10/30/17 10:00 Cholesterol 169 mg/dL (130-200) 10/30/17 10:00 LDL Cholesterol Direct 104 mg/dL (0-129) 10/30/17 10:00 HDL Cholesterol 45 mg/dL (29-60) 10/30/17 10:00 Lipase 40 U/L (23-300) 10/30/17 05:42 Free T4 1.29 ng/dL (0.78-2.19) 10/30/17 09:45 TSH 3rd Generation 2.39 mIU/mL (0.46-4.68) 10/30/17 09:45 Urine Color Yellow (YELLOW) 10/30/17 10:20 Urine Appearance Clear (CLEAR) 10/30/17 10:20 Urine pH 6.0 (4.7-8.0) 10/30/17 10:20 Ur Specific [place] >= 1.030 (1.005-1.035) 10/30/17 10:20 Urine Protein Negative mg/dL (<30 mg/dL) 10/30/17 10:20 Urine Glucose (UA) Negative mg/dL (NEGATIVE) 10/30/17 10:20 Urine Ketones 15 mg/dL (NEGATIVE) H 10/30/17 10:20 Urine Blood Negative (NEGATIVE) 10/30/17 10:20 Urine Nitrate Negative (NEGATIVE) 10/30/17 10:20 Urine Bilirubin Negative (NEGATIVE) 10/30/17 10:20 Urine Urobilinogen 0.2 E.U./dL (<1 E.U./dL) 10/30/17 10:20 Ur Leukocyte Esterase Negative Gayle/uL (NEGATIVE) 10/30/17 10:20 Attending/Attestation - Attestation I have personally seen and examined this patient.: Yes I have fully participated in the care of the patient.: Yes I have reviewed all pertinent clinical information, including history, physical exam and plan: Yes Notes (Text): I have seen and examined the patient at bedside. Agree with the above note with the following additions/ exceptions: Briefly this is 62 year old female with history of vertigo, anxiety who was brought for evaluation of nausea, vomiting and found to have rapid atrial fibrillation. HR has improved. CHADSVASC is 1. Continue aspirin, sotalol and digoxin. Echo was normal. Stress test came back normal. PT recommended HWS however patient declined services. Patient informed us that she has lot of support at home. Continue meclizine. Upon discharge patient will follow up with Dr Powell. Dr Fara Bang
[2017-11-03 17:45] VITALS: BP 109/70; PULSE 80; RESP 18; TEMP 97.8
--- NOTE | 2017-11-03 21:17 | CARD ---
APPROVED REPORT Protocol: LEXISCAN Test Type: Lexiscan Sestamibi Stress Test Attending Physician: Dr. Ronan Rod Referring Physician: Dr. KUN FRY Test Indications: CAD Height:4 ft 11 in Weight:134lbs Medications: TYLENOL, XANAX, ASPIRIN, DIGOXIN, MAG OX, AVTIVERT, REGLAN, MACROBID, BETAPACE Medical History: 62 YEAR OLD FEMALE WITH A H/O PYELONEPHRITIS, HERNIATED DISK, DEPRESSION, ANXIETY, DIVERTICULITIS AND HYSTERECTOMY Target HR: 159 bpm Resting ECG: abnormal Resting Heart Rate: 77 bpm Resting Blood Pressure: 138/84mmHg Submaximum (85%): 135 bpm PROCEDURE Pharmacologic stress testing was performed using 0.4mg per 5ml of regadenoson given intravenously over 7-10 seconds. POST EXERCISE Reason for Termination: Protocol completed Target HR: No Max HR: 82 bpm 67% of Maximum Predicted HR: 159 bpm Exercise duration: 00:32 min:sec, 0 Stage Exercise capacity: 1.0METs Max Blood Pressure: 138/84mmHg Blood Pressure response to exercise: normal resting BP - appropriate response Heart Rate response to exercise: appropriate Chest Pain: No, none Angina index: 0 Arrhythmia: No, none ST Change: No, none Deviation: 0 mm INTERPRETATION Stress EKG Conclusion: Normal infusion phase of Lexiscan NST. Signed by Ronan Rod Electronically Approved: 11/03/2017 11:55:55 EXAM: Myocardial Perfusion REST/STRESS Stress Test Type: Pharmacologic Imaging Protocol Rest Spect myocardial perfusion imaging was performed in supine position 45 minutes following the injection of 10.3 mCi of Tc-99 Myoview. At peak stress, the patient was injected intravenously with 30.9mCi of Tc-99 tetrofosmin after an infusion time of 0 minutes and 10 seconds. Gated Stress Spect was performed 65 minutes after intravenous Tc-99 Myoview injection. The images were gated to evaluate regional wall motion and calculate ventricular ejection fraction.Images were reconstructed using backfilter projection method in short horizontal and verticle long axis. Spect slices were generated. LV Perfusion The quality of the study is good. The left ventricle is normal in size. The right ventricle is unremarkable. The lung uptake is within normal limits. The distribution of tracer reveals normal uptake pattern throughout the LV myocardium on the stress study. The rest myocardial perfusion study shows no significant change. Wall Motion Wall motion study shows good contractility of the left ventricle. LVEF = 71%. Conclusion 1. Normal SPECT myocardial perfusion study. 2. Normal gated wall motion of the left ventricle.
--- NOTE | 2017-11-04 01:34 | PN ---
DATE: 11/03/2017 SUBJECTIVE: The patient is seen sitting in a chair on telemetry. She is currently comfortable. She remains in sinus rhythm. She denies any chest pain. She is scheduled for a stress test this morning. MEDICATIONS: Her current medications include sotalol 40 mg b.i.d., Ecotrin once daily, and digoxin 0.25 mg daily. OBJECTIVE: GENERAL: She is a middle-aged woman who appears comfortable at the present time. VITAL SIGNS: Blood pressure 110/70 with a pulse of 74 in sinus, respirations are 14. She is afebrile. HEENT: No JVD. CHEST: Clear to auscultation and percussion. HEART: No pathological murmur or gallops noted. ABDOMEN: Soft and nontender with bowel sounds. EXTREMITIES: No edema. DIAGNOSTIC DATA: Potassium is 3.8, BUN and creatinine are 8 and 0.6. White count 5.7, hemoglobin and hematocrit 11.3 and 34.9 with the platelet count of 205,000. IMPRESSION: 1. Paroxysmal atrial fibrillation, currently in sinus rhythm. 2. Recent chest pain, for a stress test this morning. RECOMMENDATIONS: Her current medications will be continued at this time. As she remains in sinus rhythm, sotalol and digoxin will be continued that will potentially be discontinued as an outpatient if she has no evidence of recurrence of atrial fibrillation. As her CHADS score is only 1, she will remain on the aspirin and oral anticoagulant. Further recommendations will be made based upon the results of her stress test. We will follow along as needed. Ronan Rod MD
== END 2017-11-03 18:36 | disposition home or self-care (01) | DRG 309 ==
LOC: ED 05:03 → ERH 09:09 → 2RNO 13:49
PROVIDERS: ADMIT Internal Medicine; ATTEND Hospitalist
DX: I48.0 Paroxysmal atrial fibrillation (principal); N39.0 Urinary tract infection, site not specified; I95.9 Hypotension, unspecified; D64.9 Anemia, unspecified; K52.9 Noninfective gastroenteritis and colitis, unspecified; E86.9 Volume depletion, unspecified; F41.9 Anxiety disorder, unspecified; F79 Unspecified intellectual disabilities; G31.84 Mild cognitive impairment of uncertain or unknown etiology; K57.90 Diverticulosis of intestine, part unspecified, without perforation or abscess without bleeding; K80.20 Calculus of gallbladder without cholecystitis without obstruction; N18.9 Chronic kidney disease, unspecified; Z87.440 Personal history of urinary (tract) infections; Z90.710 Acquired absence of both cervix and uterus; M54.16 Radiculopathy, lumbar region; Z88.5 Allergy status to narcotic agent; R40.2412 Glasgow coma scale score 13-15, at arrival to emergency department; E86.0 Dehydration; B95.2 Enterococcus as the cause of diseases classified elsewhere

== ENCOUNTER 2018-05-22 18:09 | Emergency (ER) | payer SELFPAY ==
[2018-05-22 18:10] VITALS: PULSE 83
[2018-05-22 18:19] VITALS: BMI 19.7
--- NOTE | 2018-05-22 18:21 | ED PDOC ---
Arrival/HPI - General Time Seen by Provider: 05/22/18 18:12 Historian: Patient - History of Present Illness Narrative History of Present Illness (Text): 05/22/18 18:18 62yo female with pmhx of vertigo bib the EMS for left sacral pain s/p trauma this evening. states she slipped over a wet floor and landed on her left gluteus/sacral area. Complaining of pain to the area. Denies hitting her head anywhere. Denies focal weakness, abdominal pain, urinary/fecal incontinence, any other complaint. 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 - HEENT Hx HEENT Disorder: No - Renal Hx Renal Disorder: Yes Hx Pyelonephritis: Yes - Endocrine/Metabolic Hx Endocrine Disorders: No - Hematological/Oncological Hx Blood Disorders: No - Integumentary Hx Dermatological Disorder: No - Musculoskeletal/Rheumatological Hx Falls: Yes (past) - Gastrointestinal Hx Gastrointestinal Disorders: Yes (DIVERTICULOSIS,GASTRITIS) - Genitourinary/Gynecological Hx Genitourinary Disorders: Yes Hx Urinary Tract Infection: Yes - Psychiatric Hx Anxiety: Yes Hx Depression: Yes Hx Emotional Abuse: No Hx Physical Abuse: No Hx Substance Use: No - Past Surgical History Past Surgical History: No Previous - Surgical History Hx Hysterectomy: Yes (2003) Other/Comment: Jaw surgery "my jaw would margaret when eating" pt stated, lower back sx about 6 yrs ago, 1995 r shoulder sx pt uncertain what kind, 1997 r knee sx pt uncertain what kind - Anesthesia Hx Anesthesia: Yes Hx Anesthesia Reactions: Yes (NAUSEA) Hx Malignant Hyperthermia: No - Suicidal Assessment Feels Threatened In Home Enviroment: No Family/Social History - Physician Review Nursing Documentation Reviewed: Yes Family/Social History: Unknown Family HX Smoking Status: Never Smoked Hx Alcohol Use: No Hx Substance Use: No Hx Substance Use Treatment: No Allergies/Home Meds Allergies/Adverse Reactions: Allergies codeine Adverse Reaction (Intermediate, Verified 05/22/18 18:11) IRRITATES STOMACH/ VOMITING oxycodone HCl [From Percocet] Adverse Reaction (Intermediate, Verified 05/22/18 18:11) IRRITATES STOMACH/ VOMITING acetaminophen [From Tylenol] Adverse Reaction (Verified 05/22/18 18:19) NAUSEA Home Medications: Home Meds Medication Instructions Recorded Confirmed Alprazolam [Xanax] 0.25 mg PO BID PRN 04/06/12 10/30/17 Meclizine [Meclizine*] 25 mg PO BID PRN 10/30/17 10/30/17 Review of Systems - Physician Review All systems were reviewed & negative as marked: Yes - Review of Systems Constitutional: Normal Eyes: Normal ENT: Normal Respiratory: Normal Cardiovascular: Normal Gastrointestinal: Normal Genitourinary Female: Normal Musculoskeletal: Arthralgias (Left gleteus) Skin: Normal Neurological: Normal Endocrine: Normal Hemo/Lymphatic: Normal Psychiatric: Normal Physical Exam Vital Signs Reviewed: Yes Temperature: Afebrile Blood Pressure: Normal Pulse: Regular Respiratory Rate: Normal Appearance: Positive for: Well-Appearing, Non-Toxic, Comfortable Pain Distress: None Mental Status: Positive for: Alert and Oriented X 3 - Systems Exam Head: Present: Atraumatic, Normocephalic Pupils: Present: PERRL Extroacular Muscles: Present: EOMI Conjunctiva: Present: Normal Mouth: Present: Moist Mucous Membranes Neck: Present: Normal Range of Motion Respiratory/Chest: Present: Clear to Auscultation, Good Air Exchange. No: Respiratory Distress, Accessory Muscle Use Cardiovascular: Present: Regular Rate and Rhythm, Normal S1, S2. No: Murmurs Abdomen: No: Tenderness, Distention, Peritoneal Signs Back: Present: Normal Inspection Upper Extremity: Present: Normal Inspection. No: Cyanosis, Edema Lower Extremity: Present: NORMAL PULSES, Normal ROM, Tenderness (Left glteus/sacral area), Neurovascularly Intact. No: Edema, Swelling, Deformity Neurological: Present: GCS=15, CN II-XII Intact, Speech Normal, Motor Func Grossly Intact, Normal Sensory Function, Normal Cerebellar Funct, Memory Normal Skin: Present: Warm, Dry, Normal Color. No: Rashes Psychiatric: Present: Alert, Oriented x 3, Normal Insight, Normal Concentration Medical Decision Making ED Course and Treatment: EXAM: Scarum/Coccyx x-ray SIGNED ON: 05/22/18 08:47 BY: Erasmo Krakovitz, M.D. IMPRESSION: No acute fracture. Advanced hypertrophic and degenerative changes with chronic disc disease at the L4-L5 and L5-S1 levels. Minimal anterolisthesis at the L4-L5 level. Clinical correlation advised. - RAD Interpretation Radiology Orders: 05/22/18 18:17 SACRUM &/or COCCYX (MIN 2VW) [RAD] Stat - Medication Orders Current Medication Orders: Ketorolac Tromethamine (Toradol) 30 mg IM STAT STA Stop: 05/22/18 18:18 Disposition/Present on Arrival - Present on Arrival Any Indicators Present on Arrival: No History of DVT/PE: No History of Uncontrolled Diabetes: No Urinary Catheter: No History Surgical Site Infection Following: None - Disposition Have Diagnosis and Disposition been Completed?: Yes Diagnosis: Sacral pain, Gluteal pain Disposition: HOME/ ROUTINE Disposition Time: 21:10 Patient Plan: Discharge Condition: STABLE Discharge Instructions (ExitCare): Muscle and Bone Pain (DC), Coccyx Injury Additional Instructions: Follow up with your doctor Return to ED for any new or worsening symptoms Prescriptions: Naproxen [Naprosyn] 500 mg PO BID #20 tablet Referrals: Samia Harvey, [Primary Care Provider] - Follow up with primary Ann Lyman MD [Medical Doctor] - Follow up with primary Forms: Critique[employer]It (Telugu)
[2018-05-22 18:37] VITALS: TEMP 98.2
[2018-05-22 20:30] VITALS: RESP 18
[2018-05-22 21:28] VITALS: BP 112/62; PULSE 82; O2SAT 100
--- NOTE | 2018-05-23 11:10 | RAD ---
Date of service: 05/22/2018 PROCEDURE: Radiographs of the Sacrum and Coccyx HISTORY: sacral pain COMPARISON: None available. TECHNIQUE: Frontal and lateral views of the sacrum and coccyx FINDINGS: BONES: Sacrum and coccyx unremarkable. No fracture or focal lesion. SACROILIAC JOINTS: Unremarkable. OTHER FINDINGS: Severe degenerative changes at L4-5 and L5-S1 The report concurs with the preliminary Virtual [facility] report IMPRESSION: Severe degenerative changes at L4-5 and L5-S1
== END 2018-05-22 21:27 | disposition home or self-care (01) ==
LOC: ED 18:09
DX: M53.3 Sacrococcygeal disorders, not elsewhere classified (principal)
CPT/HCPCS: 72220; 96372; 99285; J1885